=== PATIENT | male | born 1970 | race Caucasian/White ===

== ENCOUNTER → 2024-02-07 | Outpatient (BNVA) | payer BC, MEDICARE, SELFPAY | END | disposition home or self-care (01) | PROVIDERS: PCP Family Medicine; Referring Provider Family Medicine; Visit Provider Urology | DX: I10 Essential (primary) hypertension (principal) ==

== ENCOUNTER 2024-02-24 03:23 | Emergency (ER) | payer BC, MEDICARE, SELFPAY ==
[2024-02-24 03:23] VITALS: BMI 33.0
[2024-02-24 03:43] VITALS: BP 128/81; PULSE 101; RESP 18; TEMP 36.7; O2SAT 98
--- NOTE | 2024-02-24 03:58 | EDNOTE_ITS ---
ED Male Genitalurinary RME/HPI General Chief complaint: Urogenital-Male Stated complaint: BACH CATHETER IS PLUGGED/LEAKING Time Seen by Provider: 02/24/24 03:33 Source: patient and family Arrival date/time: 02/24/24 03:23 53-year-old male presents emergency department requesting Bach catheter to be changed due to being plugged. Patient reports usually receives home health changes catheter but was unable to go tonight. Patient [place] any fever, chills, nausea vomiting, diarrhea, dysuria, flank pain, or any other associated symptom. Mode of arrival: wheelchair Limitations: physical limitation Related Data Home Medications ?Medication ?Instructions ?Recorded ?Confirmed atorvastatin 20 mg tablet 20 mg PO QDAY 12/26/21 08/26/23 duloxetine 30 mg capsule,delayed 60 mg PO QPM 12/26/21 08/26/23 release pregabalin 75 mg capsule 75 mg PO BID 12/26/21 08/26/23 docusate sodium 250 mg capsule 250 mg PO BID 05/17/22 08/26/23 diazepam 5 mg tablet (Valium) 5 mg PO PRN PRN Anxiety 09/24/22 08/26/23 eslicarbazepine 800 mg tablet 800 mg PO HS 07/24/23 08/26/23 (Aptiom) hydrocodone 5 mg-acetaminophen 325 1 tab PO Q6H PRN Pain 07/24/23 08/26/23 mg tablet midodrine 10 mg tablet 10 mg PO BID 07/31/23 08/26/23 ropinirole 1 mg tablet 1 mg PO QPM 07/31/23 08/26/23 ferrous sulfate 325 mg (65 mg 250 mg PO BID 08/26/23 08/26/23 iron) tablet ussoeqle-varzsjjuf-pjjvujia 3.5 1 drp ophthalmic (eye) 4XD 08/26/23 08/26/23 mg/mL-10,000 unit/mL-0.1% eye drops promethazine-DM 6.25 mg-15 mg/5 mL 5 ml PO [id number] PRN Cough 08/26/23 08/26/23 oral syrup Previous Rx's ?Medication ?Instructions ?Recorded famotidine 20 mg tablet 20 mg PO QDAY #30 tabs 09/27/22 tamsulosin 0.4 mg capsule (Flomax) 0.4 mg PO QDAY #30 caps 05/23/23 Allergies Allergy/AdvReac Type Severity Reaction Status Date / Time No Known Allergies Allergy Verified 02/24/24 03:26 Review of Systems Review of Systems Systems Reviewed: All systems reviewed, normal except as documented Constitutional Constitutional: Reports system reviewed and no additional complaints, except as documented, Denies body ache(s), Denies chills and Denies fever(s) Eyes Eyes: Reports system reviewed and no additional complaints, except as documented and Denies change in vision ENT Ears, Nose, Mouth, and Throat: Reports system reviewed and no additional complaints, except as documented and Denies sore throat Cardiovascular Cardiovascular: Reports system reviewed and no additional complaints, except as documented, Denies chest pain and Denies dyspnea Respiratory Respiratory: Reports system reviewed and no additional complaints, except as documented, Denies chest congestion, Denies cough and Denies dyspnea Gastrointestinal Gastrointestinal: Reports system reviewed and no additional complaints, except as documented, Denies abdominal pain, Denies nausea and Denies vomiting Musculoskeletal Musculoskeletal: Reports system reviewed and no additional complaints, except as documented and Denies arthralgias Integumentary/Breasts Skin/Breast: Reports system reviewed and no additional complaints, except as documented, Denies erythema, Denies rash and Denies wounds Neurologic Neurologic: Reports system reviewed and no additional complaints, except as documented Past Medical History Past Medical History NEUROLOGIC: Positive Cerebrovascular Accident, Seizures and Paralysis; Negative Neurological Disorders, Transient Ischemic Attacks (TIA), Dementia, Alzheimer's Disease, Parkinson's Disease, Brain Tumor, Meningitis, Epilepsy, Multiple Sclerosis, Cerebral Palsy, Amyotrophic Lateral Sclerosis (ALS/Bronwyn Gehrig's), Guillain-[place] Syndrome, Spina Bifida, Peripheral Neuropathy, Rocha's Palsy, Subdural Hematoma, Migraine, Head Trauma, Spinal Cord Injury or Traumatic Brain Injury CARDIAC: Positive Hypotension; Negative Cardiac Disorders, Cardiac Arrhythmia, Atrial Fibrillation, Angina, Heart Murmur, Coronary Artery Disease, Atherosclerotic Heart Disease, Peripheral Vascular Disease, Hypercholesterolemia, Aneurysm, Congestive Heart Failure, Congenital Heart Disease, Valvular Heart Disease, Rheumatic Fever, Cardiomyopathy, Edema, Pericarditis, Cellulitis, Deep Vein Thrombosis, Hypertension or Varicose Veins RESPIRATORY: Negative Chronic Obstructive Pulmonary Disease (COPD), Asthma, Bronchitis, Emphysema, Pneumonia, Pulmonary Fibrosis, Tuberculosis, Pulmonary Embolism, Pulmonary Edema or Sleep Apnea GASTROINTESTINAL: Positive Gastrointestinal Disorders and Obesity; Negative Hepatitis, Cirrhosis, Pancreatitis, Celiac Disease, Gall Bladder Disease, Gastrointestinal Bleed, Esophageal Varices, Guadalupe's Esophagus, Colitis, Ulcerative Colitis, Diverticulitis, Diverticulosis, Ulcer, Colorectal Cancer, Irritable Bowel, Crohn's Disease, Obstructive Bowel, Hiatal Hernia, Hemorrhoids or Gastroesophageal Reflux Disease GENITOURINARY: Positive Genitourinary Disorders, Renal Disease and Kidney Stones; Negative Inguinal Hernia, Dialysis, Prostate Cancer or Benign Prostatic Hyperplasia REPRODUCTIVE: Negative Breast Cancer, Fibroids, Genital Herpes, Gonorrhea, Syphilis or Testicular Cancer MUSCULOSKELETAL: Positive Osteomyelitis; Negative Muscular Dystrophy, Myasthenia Gravis, Marfan's Syndrome, Bone Cancer, Arthritis, Rheumatoid Arthritis, Osteoporosis, Degenerative Disk Disease, Gout, Scoliosis, Carpal Tunnel Syndrome, Fibromyalgia, Fractures, Degenerative Joint Disease or Poliovirus ENT: Negative Cataracts, Glaucoma, Blind, Retinal Detachment, Macular Degeneration, Ear Infection, Deafness, Head Trauma or Eye Prosthesis ENDOCRINE: Negative Endocrine Disorders, Diabetes Mellitus Type 1, Diabetes Mellitus Type 2, Hypoglycemia, Emani's Syndrome, Comal's Disease, Hyperthyroidism, Hypothyroidism, Parathyroid Disease, Pituitary Disease, Systemic Lupus Erythematosus, Syndrome of Inappropriate Antidiuretic Hormone (SIADH), Adrenal Disease or Graves' Disease HEMATOLOGIC: Negative Blood Disorders, Anemia, Leukemia, Hemophilia, Thalassemia, Sickle Cell Disease or Clotting Problems PSYCHO/SOCIAL: Positive Depression and Anxiety; Negative Psychiatric Problems, Schizophrenia, Recreational Drug Use, Bipolar Disorder, Behavior Problems, Self-Mutilation, Attention Deficit Disorder, Attention Deficit Hyperactivity Disorder, Depression, Post Traumatic Stress Disorder or Eating Disorder OTHER HISTORY: Positive Hospitalization, Shingles, MRSA and Chicken Pox; Negative Autoimmune Disease, Down Syndrome, Autism, Developmental Delay, Falls, Blood Transfusions, Blood Transfusion Reaction, Anesthesia Reactions, Organ Transplant, Chemotherapy, Radiation Therapy, Hyperbaric Therapy, VRSA, Vancomycin-Resistant Enterococci, Human Immunodeficiency Virus (HIV), Measles, Mumps, Rubella ([place]gu[place] Measles), Pertussis, Clostridium Difficile, Cancer, Breast Cancer, Cervical Cancer, Colorectal Cancer, Lung Cancer, Ovarian Cancer, Prostate Cancer or Testicular Cancer Family History FAMILY HISTORY: Positive Family Surgery; Negative Family Psychiatric Problems, Family Respiratory Disorders, Family Cardiac Disorders, Family Gastrointestinal Problems, Family Cancer or Family Anesthesia Reaction Surgical History SURGICAL: Positive Amputation; Negative Cardiac Surgery, Open Heart Surgery, Coronary Artery Bypass Graft, Valve Replacement, Vascular Surgery, Coronary Stent, Cardiac Catheterization, Pacemaker, Angiogram, Auto Implanted Cardiovert Defib, Carotid Endarterectomy, Endocrine Surgery, Thyroidectomy, Ear Surgery, Tympanostomy Tube, Eye Surgery, Nose Surgery, Oral Surgery, Tonsillectomy, Adenoidectomy, Cochlear Implant, Corneal Transplant, Throat Surgery, Abdominal Surgery, Tracheostomy, Gastric Bypass Surgery, Gastrostomy, Bowel Surgery, Nephrectomy, Transurethral Resection, Joint Replacement, Open Reduction Internal Fixation, Arthroscopy, Neurologic Surgery, Brain Shunt, Mastectomy, Lumpectomy, Hysterectomy, Tubal Ligation, Section, Vasectomy or Organ Transplant Social History SMOKING STATUS: Never smoker SECOND HAND EXPOSURE: No SUBSTANCE USE: does not use ED Exam General Limitations: Present physical limitation General appearance: Present alert and in no apparent distress Head Head exam: Present atraumatic Eye Eye exam: Present normal appearance, PERRL and EOMI ENT ENT exam: Present normal exam, normal oropharynx and mucous membranes moist Neck Neck exam: Present normal inspection, full ROM and trachea midline Chest Chest inspection: Present normal inspection and symmetric chest wall rise Respiratory Respiratory exam: Present normal lung sounds bilaterally Cardiovascular Cardiovascular exam: Present regular rate, normal rhythm and normal heart sounds Abdominal Exam Abdominal exam: Present soft and normal bowel sounds Extremities Exam Extremities exam: Present normal inspection and normal capillary refill Back Exam Back exam: Present normal inspection and full ROM Neurological Exam Neurological exam: Present alert, oriented X3 and CN II-XII intact Psychiatric Psychiatric exam: Present normal affect and normal mood Skin Skin exam: Present warm, dry, intact and normal color Course Quality Measures none Orders Category Date Time Status Bach [Urinary Catheter, Remove] ONCE Care 02/24/24 03:59 Active Bach to [place] Routine Care 02/24/24 03:59 Ordered Lidocaine Jelly 2% Urojet [Xylocaine Jelly 2% Urojet] Med 02/24/24 04:00 Discontinued See Dose Instructions TOP X1 ONE Vital Signs Vital signs: Vital Signs Temperature 98.1 F 02/24/24 03:43 Pulse Rate 101 H 02/24/24 03:43 Respiratory Rate 18 02/24/24 03:43 Blood Pressure 128/81 02/24/24 03:43 Pulse Oximetry (%) 98 02/24/24 03:43 Oxygen Delivery Method Room Air 02/24/24 03:43 98% room air within normal limits Urogenital - Male MDM Narrative MDM Narrative:: 53-year-old male presents emergency department requesting Bach catheter to be changed due to being plugged. Patient reports usually receives home health changes catheter but was unable to go tonight. Patient [place] any fever, chills, nausea vomiting, diarrhea, dysuria, flank pain, or any other associated symptom. Bach catheter replaced successfully and is draining urine. Patient declined any UA and reports was just here for catheter change. Patient discharged to follow-up with primary care provider return to emergency department for any worsening symptoms or as needed. Patient appears nontoxic and is hemodynamically stable. Patient data External records reviewed:: [facility] previous records Clinical information provided by:: patient and family Social determinants that could affect healthcare access:: none Patient has the following chronic illnesses:: See chart How is presenting disease/condition affected by chronic disease/condition?: exacerbated by Evaluation data The following diagnostics were reviewed and interpreted by me:: other (specify) (N/A) Lab and/or radiology exams considered but not ordered:: N/A Interpretation Summary: N/A Medications / Prescriptions Medications or Prescriptions considered but not ordered:: Ordered Medication administrations:: Medication Administration History Discontinued Medications Lidocaine HCl (Lidocaine Jelly 2% (Urojet) 10 Ml Tube) 0 ml TOP X1 ONE Stop: 02/24/24 04:01 Given Consultations Consultation(s) initiated? (list below): No Diagnosis Urogenital Male Differential Diagnosis: urinary tract infection, urethritis, prostatitis and acute retention of urine Most likely diagnosis given after review of the tests above:: Bach catheter changed Admission Indicated Admission indicated?: not indicated Admission Request Was there a request for admission?: No Disposition Plan Disposition Plan: Discharge Discharge Attestation Discharge Attestation: The patient and all family members were given an opportunity to ask questions and understood the discharge instructions. Discharge instructions specifically effects, indications for sooner follow up or return to the emergency department, and the expected course of current diagnosis. Patient condition: Stable Discharge Plan Plan Patient Disposition: HOME (Self Care) Disposition Comment: Stable Prescriptions/Referrals Prescriptions/Med Rec: No Action Aptiom 800 mg tablet 800 mg PO HS Patient Comments: TAKE 1 TABLET BY MOUTH EVERY DAY hydrocodone-acetaminophen 5-325 mg Tablet 1 tab PO Q6H PRN (Reason: Pain) docusate sodium 250 mg Capsule 250 mg PO BID diazepam [Valium] 5 mg Tablet 5 mg PO PRN PRN (Reason: Anxiety) famotidine 20 mg Tablet 20 mg PO QDAY Qty: 30 0RF tamsulosin [Flomax] 0.4 mg capsule 0.4 mg PO QDAY Qty: 30 0RF neomycin-polymyxin B-dexameth 3.5mg/mL-10,000 unit/mL-0.1 % drops,suspension 1 drp OPHTHALMIC (EYE) 4XD Patient Comments: INSTILL 1 DROP INTO LEFT EYE FOUR TIMES A DAY FOR 7 DAYS ferrous sulfate 325 mg (65 mg iron) tablet 250 mg PO BID Patient Comments: TAKE 1 TABLET BY MOUTH TWICE A DAY promethazine-DM 6.25-15 mg/5 mL syrup 5 ml PO [id number] PRN (Reason: Cough) Patient Comments: TAKE 5 MLS BY MOUTH EVERY 6 HOURS NEEDED FOR COUGH atorvastatin 20 mg tablet 20 mg PO QDAY Patient Comments: TAKE 1 TABLET BY MOUTH EVERY DAY duloxetine 30 mg capsule,delayed release(DR/EC) 60 mg PO QPM Patient Comments: TAKE 1 CAPSULE BY MOUTH EVERY DAY pregabalin 75 mg capsule 75 mg PO BID Patient Comments: TAKE 1 CAPSULE BY MOUTH TWICE A DAY ropinirole 1 mg tablet 1 mg PO QPM Patient Comments: TAKE 1 TABLET BY MOUTH AT BEDTIME midodrine 10 mg tablet 10 mg PO BID Patient Comments: TAKE 1 TABLET (10 MG) BY MOUTH TWICE A DAY HOLD IF BP SYSTOLIC OVER 120 Problem List Clinical Impression: Urinary catheter (Bach) change required Patient/Caregiver Discharge Instructions Additional Instructions: Follow-up with your primary care provider upon discharge. Return to emergency department for any worsening symptoms or as needed. Print Language: Moldovan Stand Alone Forms: Janice Award Info., Patient Portal Info Letter PA/SOFTWARE TEST MANAGER Supervising Physician PA/SOFTWARE TEST MANAGER Supervising Physician: Dr. Davis
== END 2024-02-24 04:46 | disposition home or self-care (01) ==
LOC: SERX 04:49
PROVIDERS: Emergency Provider Emergency Medicine; PCP Nurse Practitioner Family
DX: Z46.6 Encounter for fitting and adjustment of urinary device (principal)
CPT/HCPCS: 51702; 99283

== ENCOUNTER 2024-05-09 14:02 | Emergency (ER) | payer BC, MEDICARE, SELFPAY ==
[2024-05-09 14:04] VITALS: BMI 33.0
[2024-05-09 14:13] VITALS: BP 144/89; PULSE 112; RESP 18; TEMP 36.6; O2SAT 99
[2024-05-09] MEDS: ALPRazoLAM 0.25 MG TABLET 0.5 MG PO (14:29)
[2024-05-09] MEDS: KETOROLAC INJ 60 MG/2 ML VIAL IM (14:30)
--- NOTE | 2024-05-09 14:36 | EDNOTE_ITS ---
<Statement entered by Yumiko Gonzalez MD - 05/11/24 12:05> As co-signing physician, I was present and available for consult prn. I concur with the plan and care as documented by the midlevel provider. ED Male Genitalurinary RME/HPI General Chief complaint: Abdominal Pain Stated complaint: Possible kidney stones: abd. pain, decrease urine Time Seen by Provider: 05/09/24 14:23 Arrival date/time: 05/09/24 14:02 53-year-old male well-known to me wheelchair dependent with history of kidney stones presents to the emergency department today with who is requesting pain medication. Patient already has a follow-up scheduled for the and with specialist at [facility] per the patient is urinating without difficulty patient has a catheter in place Limitations: no limitations Related Data Home Medications ?Medication ?Instructions ?Recorded ?Confirmed atorvastatin 20 mg tablet 20 mg PO QDAY 12/26/2108/25 duloxetine 30 mg capsule,delayed 60 mg PO QPM 12/26/21 08/26/23 release pregabalin 75 mg capsule 75 mg PO BID 12/26/21 docusate sodium 250 mg capsule 250 mg PO BID 05/17/22 08/26/23 diazepam 5 mg tablet (Valium) 5 mg PO PRN PRN Anxiety 09/24/22 08/26/23 eslicarbazepine 800 mg tablet 800 mg PO HS 07/24/23 (Aptiom) hydrocodone 5 mg-acetaminophen 325 1 tab PO Q6H PRN Pa in 07/24/23 08/26/23 mg tablet midodrine 10 mg tablet 10 mg PO BID 07/31/23 ropinirole 1 mg tablet 1 mg PO QPM 07/31/23 4 ferrous sulfate 325 mg (65 mg 250 mg PO BID 08/26/23 0 08/26/23 iron) tablet [id number] 3.5 1 drp ophthalmic (eye) 4XD 08/26/23 08/26/23 mg/mL-10,000 unit/mL-0.1% eye drops promethazine-DM 6.25 mg-15 mg/5 mL 5 ml PO [id number] PRN Cough 08/26/23 08/26/23 oral syrup Previous Rx's ?Medication ?Instructions ?Recorded famotidine 20 mg tablet 20 mg PO QDAY #30 tabs 09/27 tamsulosin 0.4 mg capsule (Flomax) 0.4 mg PO QDAY #30 caps 05/23/23 Allergies Allergy/AdvReac Type Severity Reaction Status Date / Time No Known Allergies Allergy Verified 02/24/24 03:26 Review of Systems Review of Systems Systems Reviewed: All systems reviewed, normal except as documented Constitutional Constitutional: Reports system reviewed and no additional complaints, except as documented, Denies fever(s) and Denies headache(s) Eyes Eyes: Reports system reviewed and no additional complaints, except as documented and Denies blurry vision ENT Ears, Nose, Mouth, and Throat: Reports system reviewed and no additional complaints, except as documented, Denies headache(s), Denies nasal congestion and Denies nasal discharge Cardiovascular Cardiovascular: Reports system reviewed and no additional complaints, except as documented, Denies chest pain and Denies dyspnea Respiratory Respiratory: Reports system reviewed and no additional complaints, except as documented, Denies chest congestion, Denies cough and Denies dyspnea Gastrointestinal Gastrointestinal: Reports system reviewed and no additional complaints, except as documented, Reports abdominal pain and Denies loose stools Integumentary/Breasts Skin/Breast: Reports system reviewed and no additional complaints, except as documented and Denies rash Neurologic Neurologic: Reports system reviewed and no additional complaints, except as documented, Reports as per HPI and Denies headache(s) Past Medical History Past Medical History NEUROLOGIC: Positive Cerebrovascular Accident, Seizures and Paralysis; Negative Neurological Disorders, Transient Ischemic Attacks (TIA), Dementia, Alzheimer's Disease, Parkinson's Disease, Brain Tumor, Meningitis, Epilepsy, Multiple Sclerosis, Cerebral Palsy, Amyotrophic Lateral Sclerosis (ALS/[place] Gehrig's), Guillain-[place] Syndrome, Spina Bifida, Peripheral Neuropathy, Rocha's Palsy, Subdural Hematoma, Migraine, Head Trauma, Spinal Cord Injury or Traumatic Brain Injury CARDIAC: Positive Hypotension; Negative Cardiac Disorders, Cardiac Arrhythmia, Atrial Fibrillation, Angina, Heart Murmur, Coronary Artery Disease, Atherosclerotic Heart Disease, Peripheral Vascular Disease, Hypercholesterolemia, Aneurysm, Congestive Heart Failure, Congenital Heart Disease, Valvular Heart Disease, Rheumatic Fever, Cardiomyopathy, Edema, Pericarditis, Cellulitis, Deep Vein Thrombosis, Hypertension or Varicose Veins RESPIRATORY: Negative Chronic Obstructive Pulmonary Disease (COPD), Asthma, Bronchitis, Emphysema, Pneumonia, Pulmonary Fibrosis, Tuberculosis, Pulmonary Embolism, Pulmonary Edema or Sleep Apnea GASTROINTESTINAL: Positive Gastrointestinal Disorders and Obesity; Negative Hepatitis, Cirrhosis, Pancreatitis, Celiac Disease, Gall Bladder Disease, Gastrointestinal Bleed, Esophageal Varices, Guadalupe's Esophagus, Colitis, Ulcerative Colitis, Diverticulitis, Diverticulosis, Ulcer, Colorectal Cancer, Irritable Bowel, Crohn's Disease, Obstructive Bowel, Hiatal Hernia, Hemorrhoids or Gastroesophageal Reflux Disease GENITOURINARY: Positive Genitourinary Disorders, Renal Disease and Kidney Stones; Negative Inguinal Hernia, Dialysis, Prostate Cancer or Benign Prostatic Hyperplasia REPRODUCTIVE: Negative Breast Cancer, Fibroids, Genital Herpes, Gonorrhea, Syphilis or Testicular Cancer MUSCULOSKELETAL: Positive Osteomyelitis; Negative Muscular Dystrophy, Myasthenia Gravis, Marfan's Syndrome, Bone Cancer, Arthritis, Rheumatoid Arthritis, Osteoporosis, Degenerative Disk Disease, Gout, Scoliosis, Carpal Tunnel Syndrome, Fibromyalgia, Fractures, Degenerative Joint Disease or Poliovirus ENT: Negative Cataracts, Glaucoma, Blind, Retinal Detachment, Macular Degeneration, Ear Infection, Deafness, Head Trauma or Eye Prosthesis ENDOCRINE: Negative Endocrine Disorders, Diabetes Mellitus Type 1, Diabetes Mellitus Type 2, Hypoglycemia, [place]'s Syndrome, Fabian's Disease, Hyperthyr oidism, Hypothyroidism, Parathyroid Disease, Pituitary Disease, Systemic Lupus Erythematosus, Syndrome of Inappropriate Antidiuretic Hormone (SIADH), Adrenal Disease or Graves' Disease HEMATOLOGIC: Negative Blood Disorders, Anemia, Leukemia, Hemophilia, Thalassemia, Sickle Cell Disease or Clotting Problems PSYCHO/SOCIAL: Positive Depression and Anxiety; Negative Psychiatric Problems, Schizophrenia, Recreational Drug Use, Bipolar Disorder, Behavior Problems, Self-Mutilation, Attention Deficit Disorder, Attention Deficit Hyperactivity Disorder, Depression, Post Traumatic Stress Disorder or Eating Disorder OTHER HISTORY: Positive Hospitalization, Shingles, MRSA and Chicken Pox; Negative Autoimmune Disease, Down Syndrome, Autism, Developmental Delay, Falls, Blood Transfusions, Blood Transfusion Reaction, Anesthesia Reactions, Organ Transplant, Chemotherapy, Radiation Therapy, Hyperbaric Therapy, VRSA, Vancomycin-Resistant Enterococci, Human Immunodeficiency Virus (HIV), Measles, Mumps, Rubella ([place] Measles), Pertussis, Clostridium Difficile, Cancer, Breast Cancer, Cervical Cancer, Colorectal Cancer, Lung Cancer, Ovarian Cancer, Prostate Cancer or Testicular Cancer Family History FAMILY HISTORY: Positive Family Surgery; Negative Family Psychiatric Problems, Family Respiratory Disorders, Family Cardiac Disorders, Family Gastrointestinal Problems, Family Cancer or Family Anesthesia Reaction Surgical History SURGICAL: Positive Amputation; Negative Cardiac Surgery, Open Heart Surgery, Coronary Artery Bypass Graft, V alve Replacement, Vascular Surgery, Coronary Stent, Cardiac Catheterization, Pacemaker, Angiogram, Auto Implanted Cardiovert Defib, Carotid Endarterectomy, Endocrine Surgery, Thyroidectomy, Ear Surgery, Tympanostomy Tube, Eye Surgery, Nose Surgery, Oral Surgery, Tonsillectomy, Adenoidectomy, Cochlear Implant, Corneal Transplant, Throat Surgery, Abdominal Surgery, Tracheostomy, Gastric Bypass Surgery, Gastrostomy, Bowel Surgery, Nephrectomy, Transurethral Resection, Joint Replacement, Open Reduction Internal Fixation, Arthroscopy, Neurologic Surgery, Brain Shunt, Mastectomy, Lumpectomy, Hysterectomy, Tubal Ligation, Section, Vasectomy or Organ Transplant Social History SMOKING STATUS: Never smoker SECOND HAND EXPOSURE: No SUBSTANCE USE: does not use ED Exam General Limitations: Present no limitations General appearance: Present alert and in no apparent distress Head Head exam: Present atraumatic, normocephalic and normal inspection Eye Eye exam: Present normal appearance, PERRL and EOMI; Absent conjunctival injection ENT ENT exam: Present normal exam, normal oropharynx and mucous membranes moist Neck Neck exam: Present normal inspection, full ROM and trachea midline Chest Chest inspection: Present normal inspection and symmetric chest wall rise Respiratory Respiratory exam: Present normal lung sounds bilaterally; Absent respiratory distress, wheezes, stridor or accessory muscle use Cardiovascular Cardiovascular exam: Present regular rate, normal rhythm and normal heart sounds Abdominal Exam Abdominal exam: Present soft and normal bowel sounds; Absent distention, tenderness, guarding, rebound, rigidity, Baig's sign, Rovsing's sign or tenderness at McBurney's Point Abdominal tenderness: Absent RUQ or RLQ Extremities Exam Extremities exam: Present normal inspection and full ROM Back Exam Back exam: Present normal inspection and full ROM Neurological Exam Neurological exam: Present alert, oriented X3 and CN II-XII intact Psychiatric Psychiatric exam: Present normal affect and normal mood Skin Skin exam: Present warm, dry, intact and normal color Course Quality Measures none Orders Category Date Time Status ALPRazoLAM [Xanax] Med 05/09/24 14:23 Discontinued 0.5 mg PO X1 ONE Ketorolac Inj [Toradol Inj] Med 05/09/24 14:23 Discontinued 60 mg IM X1 ONE Vital Signs Vital signs: Vital Signs Temperature 97.8 F 05/09/24 14:13 Pulse Rate 112 H 05/09/24 14:13 Respiratory Rate 18 05/09/24 14:13 Blood Pressure 144/89 H 05/09/24 14:13 Pulse Oximetry (%) 99 05/09/24 14:13 Oxygen Delivery Method Room Air 05/09/24 14:13 O2 saturation 99% r/a wnl Urogenital - Male MDM Narrative MDM Narrative:: 53-year-old male well-known to me wheelchair dependent with history of kidney stones presents to the emergency department today with who is requesting pain medication. Patient already has a follow-up scheduled for the and with specialist at [facility] per the patient is urinating without difficulty patient has a catheter in place I did offer to do lab work and CT for the she would rather follow-up at [facility] and does not believe it is necessary at this time Patient has no nausea no vomiting no fever Patient given medication here for pain as well as anxiety Patient discharged home in no distress to follow-up specialist for worsening symptoms return immediately Patient data External records reviewed:: [facility] previous records Clinical information provided by:: spouse Social determinants that could affect healthcare access:: none Patient has the following chronic illnesses:: See history How is presenting disease/condition affected by chronic disease/condition?: caused by Evaluation data The following diagnostics were reviewed and interpreted by me:: other (specify) (N/A) Lab and/or radiology exams considered but not ordered:: Consider not ordered Interpretation Summary: N/A Medications / Prescriptions Medications or Prescriptions considered but not ordered:: Given Medication administrations:: Medication Administration History Discontinued Medications Alprazolam (Alprazolam 0.25 Mg Tablet) 0.5 mg PO X1 ONE Stop: 05/09/24 14:24 Last Admin: 05/09/24 14:29 Dose: 0.5 mg Documented By: Ketorolac Tromethamine (Ketorolac Inj 60 Mg/2 Ml Vial) 60 mg IM X1 ONE Stop: 05/09/24 14:24 Last Admin: 05/09/24 14:30 Dose: 60 mg Documented By: Given Consultations Consultation(s) initiated? (list below): No Diagnosis Urogenital Male Differential Diagnosis: urinary tract infection and prostatitis Most likely diagnosis given after review of the tests above:: UTI Admission Indicated Admission indicated?: not indicated Admission Request Was there a request for admission?: No Disposition Plan Disposition Plan: Discharge Discharge Attestation Discharge Attestation: The patient and all family members were given an opportunity to ask questions and understood the discharge instructions. Discharge instructions specifically effects, indications for sooner follow up or return to the emergency department, and the expected course of current diagnosis. Patient condition: Stable Discharge Plan Plan Patient Disposition: HOME (Self Care) Disposition Comment: Stable Prescriptions/Referrals Prescriptions/Med Rec: No Action Aptiom 800 mg tablet 800 mg PO HS Patient Comments: TAKE 1 TABLET BY MOUTH EVERY DAY hydrocodone-acetaminophen 5-325 mg Tablet 1 tab PO Q6H PRN (Reason: Pain) docusate sodium 250 mg Capsule 250 mg PO BID diazepam [Valium] 5 mg Tablet 5 mg PO PRN PRN (Reason: Anxiety) famotidine 20 mg Tablet 20 mg PO QDAY Qty: 30 0RF tamsulosin [Flomax] 0.4 mg capsule 0.4 mg PO QDAY Qty: 30 0RF neomycin-polymyxin B-dexameth 3.5mg/mL-10,000 unit/mL-0.1 % drops,suspension 1 drp OPHTHALMIC (EYE) 4XD Patient Comments: INSTILL 1 DROP INTO LEFT EYE FOUR TIMES A DAY FOR 7 DAYS ferrous sulfate 325 mg (65 mg iron) tablet 250 mg PO BID Patient Comments: TAKE 1 TABLET BY MOUTH TWICE A DAY promethazine-DM 6.25-15 mg/5 mL syrup 5 ml PO [id number] PRN (Reason: Cough) Patient Comments: TAKE 5 MLS BY MOUTH EVERY 6 HOURS NEEDED FOR COUGH atorvastatin 20 mg tablet 20 mg PO QDAY Patient Comments: TAKE 1 TABLET BY MOUTH EVERY DAY duloxetine 30 mg capsule,delayed release(DR/EC) 60 mg PO QPM Patient Comments: TAKE 1 CAPSULE BY MOUTH EVERY DAY pregabalin 75 mg capsule 75 mg PO BID Patient Comments: TAKE 1 CAPSULE BY MOUTH TWICE A DAY ropinirole 1 mg tablet 1 mg PO QPM Patient Comments: TAKE 1 TABLET BY MOUTH AT BEDTIME midodrine 10 mg tablet 10 mg PO BID Patient Comments: TAKE 1 TABLET (10 MG) BY MOUTH TWICE A DAY HOLD IF BP SYSTOLIC OVER 120 Problem List Clinical Impression: Kidney stone Patient/Caregiver Discharge Instructions Education Materials: Kidney Problems Additional Instructions: Please follow-up with specialist as discussed for worsening symptoms return immediately Print Language: Kyrgyz Stand Alone Forms: Friend Traveler Info., Patient Portal Info Letter PA/SOCIAL STUDIES TEACHER Supervising Physician PA/SOCIAL STUDIES TEACHER Supervising Physician: Dr. GONZALEZ
== END 2024-05-09 14:40 | disposition home or self-care (01) ==
LOC: SERX 14:40
PROVIDERS: Emergency Provider Emergency Medicine; PCP Family Medicine
DX: N20.0 Calculus of kidney (principal); F41.9 Anxiety disorder, unspecified; Z87.442 Personal history of urinary calculi; Z99.3 Dependence on wheelchair
CPT/HCPCS: 96372; 99283; J1885; A9270

== ENCOUNTER 2024-05-09 21:24 | Emergency (ER) | payer BC, MEDICARE, SELFPAY ==
[2024-05-09 22:08] VITALS: BP 131/77; PULSE 87; RESP 18; TEMP 36.6; O2SAT 100; BMI 33.0
--- NOTE | 2024-05-09 22:27 | PD.EDRME ---
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
--- NOTE | 2024-05-09 23:17 | PD.EDADULT ---
ED General RME/HPI General Chief complaint: General Adult/Misc Complain Stated complaint: KIDNEY PAIN Time Seen by Provider: 05/09/24 21:41 Arrival date/time: 05/09/24 21:24 RME / HPI RME / HPI narrative: Patient is a 53 years old male with past medical history of CVA with right residual paralysis, right facial droop and dyslexia, multiple renal stones, chronic Pseudomonas UTI and chronic indwelling catheter presented to the ED due to abdominal pain. He was seen in the ED today afternoon for similar complaints and work up was negative. He denies chest pain, SOB, diarrhea, nausea, vomiting, fever or chills. Patient cannot provide history, family at the bedside. They report he started developing right flank pain today morning and was worsening over time. Related Data Home Medications ?Medication ?Instructions ?Recorded ?Confirmed atorvastatin 20 mg tablet 20 mg PO QDAY 12/26/21 08/26/23 duloxetine 30 mg capsule,delayed 60 mg PO QPM 12/26/21 08/26/23 release pregabalin 75 mg capsule 75 mg PO BID 12/26/21 08/26/23 docusate sodium 250 mg capsule 250 mg PO BID 05/17/22 08/26/23 diazepam 5 mg tablet (Valium) 5 mg PO PRN PRN Anxiety 09/24/22 08/26/23 eslicarbazepine 800 mg tablet 800 mg PO HS 07/24/23 08/26/23 (Aptiom) hydrocodone 5 mg-acetaminophen 325 1 tab PO Q6H PRN Pain 07/24/23 08/26/23 mg tablet midodrine 10 mg tablet 10 mg PO BID 07/31/23 08/26/23 ropinirole 1 mg tablet 1 mg PO QPM 07/31/23 08/26/23 ferrous sulfate 325 mg (65 mg 250 mg PO BID 08/26/23 08/26/23 iron) tablet myulujzo-ayrhohrcs-jcsbrteu 3.5 1 drp ophthalmic (eye) 4XD 08/26/23 08/26/23 mg/mL-10,000 unit/mL-0.1% eye drops promethazine-DM 6.25 mg-15 mg/5 mL 5 ml PO [id number] PRN Cough 08/26/23 08/26/23 oral syrup Previous Rx's ?Medication ?Instructions ?Recorded famotidine 20 mg tablet 20 mg PO QDAY #30 tabs 09/27/22 tamsulosin 0.4 mg capsule (Flomax) 0.4 mg PO QDAY #30 caps 05/23/23 cefdinir 300 mg capsule 300 mg PO BID #14 caps 05/10/24 hydrocodone 5 mg-acetaminophen 325 2 tab PO Q8H PRN pain #20 tabs 05/10/24 mg tablet ketorolac 10 mg tablet 10 mg PO Q8H PRN pain 5 days #10 05/10/24 tabs ondansetron 4 mg disintegrating 4 mg PO TID PRN nausea and 05/10/24 tablet vomiting 30 days #10 tabs tamsulosin 0.4 mg capsule (Flomax) 0.4 mg PO QDAY 7 days #7 caps 05/10/24 Allergies Allergy/AdvReac Type Severity Reaction Status Date / Time No Known Allergies Allergy Verified 02/24/24 03:26 Review of Systems Review of Systems Systems Reviewed: All systems reviewed, normal except as documented ED Exam Narrative Physical exam: Gen: Well-developed and well-nourished male. HEENT: NCAT, PERRLA, EOMI, MMM, anicteric conjunctivae, right facial droop noted. CVS: normal S1 and S2. RRR. No M/R/G. Resp: CTA B/L. No rhonchi, rales, crackles or wheezing. Abd: soft, non-tender, non-distended. BS+ in all 4 quadrants. : no CVA or suprapubic tenderness. MSK: Good ROM in BUE & BLE. No edema or rash. Neuro: CN II-XII grossly intact. Strength 5/5 in LUE & LLE. Right sided paralysis. Alert and oriented x3. Course Quality Measures none Orders Category Date Time Status CT Screening NOW Care 05/09/24 22:23 Active [place] Routine Care 05/09/24 23:29 Ordered Miscellaneous Nursing Order NOW Care 05/09/24 23:36 Active Miscellaneous Nursing Order NOW Care 05/09/24 23:37 Active Miscellaneous Nursing Order NOW Care 05/10/24 01:48 Active Saline [Insert IV] NOW Care 05/09/24 23:[address] abdomen pelvis wo con Stat Exams 05/09/24 23:29 Taken Amylase Stat Lab 05/09/24 23:33 Completed CBC Stat Lab 05/09/24 23:33 Completed CMP [Comprehensive Metabolic Panel] Stat Lab 05/09/24 23:33 Completed Lipase Stat Lab 05/09/24 23:33 Completed Magnesium Stat Lab 05/09/24 23:33 Completed Triglycerides Stat Lab 05/10/24 00:00 Completed UA, C/S IF [Urinalysis, C/S if Indicated] Stat Lab 05/10/24 01:50 Completed Urine Culture Stat Lab 05/10/24 01:50 Received 1 gm/NS50M IV x1 (ED) Med 05/10/24 03:48 Ordered cefTRIAXone [Rocephin] 1,000 mg SODIUM CHLORIDE 0.9% (Popper) [Ns 0.9% (P)] 50 ml IV X1 HYDROmorphone INJ [Dilaudid Inj] Med 05/09/24 22:23 Discontinued 1 mg IVP X1 ONE Ketorolac Inj [Toradol Inj] Med 05/09/24 23:29 Discontinued 30 mg IVP X1 ONE Promethazine Inj [Phenergan Inj] 12.5 mg Med 05/09/24 22:26 Discontinued Sodium Chloride 0.9% [Ns] 50 ml IV X1 Sodium Chloride 0.9% 1000 ml [Ns] 1,000 ml Med 05/09/24 23:29 Discontinued IV 999 mls/hr Vital Signs Vital signs: Vital Signs Temperature 98 F 05/09/24 22:08 Pulse Rate 87 05/09/24 22:08 Respiratory Rate 18 05/09/24 22:08 Blood Pressure 131/77 H 05/09/24 22:08 Pulse Oximetry (%) 100 05/09/24 22:08 Oxygen Delivery Method Room Air 05/09/24 22:08 [facility] Patient data External records reviewed:: [facility] previous records Clinical information provided by:: patient and family Social determinants that could affect healthcare access:: none Patient has the following chronic illnesses:: CVA with right residual paralysis, right facial droop and dyslexia, multiple renal stones, chronic Pseudomonas UTI and chronic indwelling catheter How is presenting disease/condition affected by chronic disease/condition?: caused by Evaluation data The following diagnostics were reviewed and interpreted by me:: lab results and radiology exam(s) Lab and/or radiology exams considered but not ordered:: none Interpretation Summary: 6 mm obstructing calculus in the right mid ureter, with moderate right hydroureteronephrosis, UTI Medications Medications considered but not ordered:: none Medication administrations:: Medication Administration History Discontinued Medications Hydromorphone HCl (Hydromorphone Inj 2 Mg/Ml Vial) 1 mg IVP X1 ONE Stop: 05/09/24 22:24 Last Admin: 05/09/24 23:45 Dose: 1 mg Documented By: CATRINA Promethazine HCl 12.5 mg/ (Sodium Chloride) 50.5 mls @ 2.5 mls/min IV X1 ONE Stop: 05/09/24 22:46 Last Admin: 05/09/24 23:56 Dose: Not Given Documented By: CATRINA Non-Admin Reason: Cancelled by Provider Sodium Chloride (Ns) 1,000 mls @ 999 mls/hr IV .Q1H1M ONE Stop: 05/10/24 00:29 Last Admin: 05/10/24 00:18 Dose: 999 mls/hr Documented By: CATRINA Ketorolac Tromethamine (Ketorolac Inj 30 Mg/Ml Vial) 30 mg IVP X1 ONE Stop: 05/09/24 23:30 Last Admin: 05/10/24 00:00 Dose: 30 mg Documented By: CATRINA Ketorolac 30 mg, NS 1L, promethazine 12.5 mg, hydromorphone 1 mg, ceftriaxone 1 g. Consultations Consultation(s) initiated? (list below): No Diagnosis Differential Diagnosis ED Complaint MDM: pancreatitis, pyelonephritis, kidney stone, nephrolithiasis Most likely diagnosis given after review of the tests above:: Nephrolithiasis Admission Indicated Admission indicated?: not indicated Explain why admission is indicated or not indicated:: Patient has small stone 6 mm with obstruction and moderate hydronephrosis, will need to follow up outpatient. Admission Request Was there a request for admission?: No Disposition Plan Disposition Plan: Discharge Discharge Attestation Discharge Attestation: The patient and all family members were given an opportunity to ask questions and understood the discharge instructions. Discharge instructions specifically effects, indications for sooner follow up or return to the emergency department, and the expected course of current diagnosis. Patient condition: Stable Medical Decision Making Differential Diagnosis Differential Diagnosis: pancreatitis, pyelonephritis, kidney stone, nephrolithiasis Lab Data 05/09/24 23:33 05/09/24 23:33 Labs: Lab Results 05/09/24 05/10/24 05/10/24 Range/Units 23:33 00:00 01:50 WBC 4.8 (3.8-10.6) Thou/mm3 RBC 4.58 (4.50-5.90) Miln/mm3 Hgb 11.1 L (13.5-16.0) g/dL Hct 35.2 L (41.0-53.0) % MCV 77 L (80-100) fL MCH 24.2 L (25.0-35.0) pg MCHC 31.5 (31.0-37.0) g/dl RDW Std Deviation 42.0 (35.1-43.9) fL Plt Count 125 L (140-440) Thou/mm3 Neut % (Auto) 42 (37-80) % Lymph % (Auto) 40 (10-50) % [place] % (Auto) 12 (0-12) % Eos % (Auto) 5 (0-10) % Baso % (Auto) 1 (0-2.5) % Neut # (Auto) 2.0 (1.8-7.7) Thou/mm3 Lymph # (Auto) 1.9 (1.0-4.8) Thou/mm3 [place] # (Auto) 0.6 (0.0-0.8) Thou/mm3 Eos # (Auto) 0.2 (0.0-0.5) Thou/mm3 Baso # (Auto) 0.1 (0.0-0.2) Thou/mm3 Immature Gran # (Auto) 0.02 H (0.00-0.00) Thou/mm3 Absolute Nucleated RBC 0.00 (0.00-0.00) Thou/mm3 Immature Gran % 0 (0-0) % Nucleated RBC % 0 (0) /100 WBC Sodium 144 (136-145) mMol/L Potassium 3.8 (3.4-5.1) mMol/L Chloride 109 H (98-107) mMol/L Carbon Dioxide 29.3 (20.0-31.0) mMol/L Anion Gap 6 L (7-16) BUN 24 H (9-23) mg/dL Creatinine 0.9 (0.6-1.3) mg/dL Estim Creat Clear Calc 116.2 (>60) mL/min eGFR > 60 (60 - ) See Note BUN/Creatinine Ratio 27 H (12-20) Ratio Glucose 140 H (74-106) mg/dL Calculated Osmolality 292 (275-295) Calcium 9.1 (8.3-10.6) mg/dL Corrected Calcium 9.2 (8.5-10.1) mg/dL Magnesium 1.8 (1.6-2.6) mg/dL Total Bilirubin 0.4 (0.3-1.2) mg/dL AST 24 (0-34) U/L ALT 33 (10-49) U/L Alkaline Phosphatase 103 (46-116) U/L Total Protein 6.5 (5.7-8.2) gm/dL Albumin 3.9 (3.5-5.0) gm/dL Globulin 2.6 (2.3-3.5) gm/dL Albumin/Globulin Ratio 1.5 (1.2-2.2) Triglycerides Cancelled 154 H Amylase 126 H (30-118) U/L Lipase 80 H (12-53) U/L Ur Collection Type Clean Catch Urine Color Yellow (Lt Yel-Yel) Urine Clarity Turbid A (Clear/Hazy) Urine pH 6.0 (5.0-7.0) Ur Specific [place] 1.030 (1.001-1.035) Urine Protein 2+ A (Neg - Trace) Urine Glucose (UA) Negative (Negative) Urine Ketones Negative (Negative) Urine Blood 2+ A (Negative) Urine Nitrite Positive (Negative) Urine Bilirubin Negative (Negative) Urine Urobilinogen (Auto) 2.0 (0.0-1.0) mg/dL Ur Leukocyte Esterase Positive (Negative) Urine RBC 221 H (0-3) /hpf Urine WBC 526 H (0-5) /hpf Ur Squamous Epith Cells 1 (0-5) /hpf Ur Renal Epithelial Cell 2 (0-5) /hpf Amorphous Crystals Present A (Absent) Urine Bacteria 1+ A (None) Urine Yeast (Budding) Present A (None) Ur Culture Indicated? Yes Discharge Plan Plan Patient Disposition: HOME (Self Care) Prescriptions/Referrals Prescriptions/Med Rec: New hydrocodone-acetaminophen 5-325 mg tablet 2 tab PO Q8H MDD 6 PRN (Reason: pain) Qty: 20 0RF tamsulosin [Flomax] 0.4 mg capsule 0.4 mg PO QDAY 7 Days Qty: 7 0RF ketorolac 10 mg tablet 10 mg PO Q8H PRN (Reason: pain) 5 Days Qty: 10 0RF cefdinir 300 mg capsule 300 mg PO BID Qty: 14 0RF ondansetron 4 mg tablet,disintegrating 4 mg PO TID PRN (Reason: nausea and vomiting) 30 Days Qty: 10 0RF No Action Aptiom 800 mg tablet 800 mg PO HS Patient Comments: TAKE 1 TABLET BY MOUTH EVERY DAY hydrocodone-acetaminophen 5-325 mg Tablet 1 tab PO Q6H PRN (Reason: Pain) docusate sodium 250 mg Capsule 250 mg PO BID diazepam [Valium] 5 mg Tablet 5 mg PO PRN PRN (Reason: Anxiety) famotidine 20 mg Tablet 20 mg PO QDAY Qty: 30 0RF tamsulosin [Flomax] 0.4 mg capsule 0.4 mg PO QDAY Qty: 30 0RF neomycin-polymyxin B-dexameth 3.5mg/mL-10,000 unit/mL-0.1 % drops,suspension 1 drp OPHTHALMIC (EYE) 4XD Patient Comments: INSTILL 1 DROP INTO LEFT EYE FOUR TIMES A DAY FOR 7 DAYS ferrous sulfate 325 mg (65 mg iron) tablet 250 mg PO BID Patient Comments: TAKE 1 TABLET BY MOUTH TWICE A DAY promethazine-DM 6.25-15 mg/5 mL syrup 5 ml PO [id number] PRN (Reason: Cough) Patient Comments: TAKE 5 MLS BY MOUTH EVERY 6 HOURS NEEDED FOR COUGH atorvastatin 20 mg tablet 20 mg PO QDAY Patient Comments: TAKE 1 TABLET BY MOUTH EVERY DAY duloxetine 30 mg capsule,delayed release(DR/EC) 60 mg PO QPM Patient Comments: TAKE 1 CAPSULE BY MOUTH EVERY DAY pregabalin 75 mg capsule 75 mg PO BID Patient Comments: TAKE 1 CAPSULE BY MOUTH TWICE A DAY ropinirole 1 mg tablet 1 mg PO QPM Patient Comments: TAKE 1 TABLET BY MOUTH AT BEDTIME midodrine 10 mg tablet 10 mg PO BID Patient Comments: TAKE 1 TABLET (10 MG) BY MOUTH TWICE A DAY HOLD IF BP SYSTOLIC OVER 120 Referrals: No Primary/Family,Physician [Referring Provider] - In 1 week Problem List Clinical Impression: Hydronephrosis with renal and ureteral calculous obstruction, Acute UTI Patient/Caregiver Discharge Instructions Education Materials: ED Kidney Stone Undescended No ..., ED Kidney Stone w/ Colic Additional Instructions: Discharge Instructions from Dr. Davis: --After evaluation, your symptoms are due to a 6 mm kidney stone.? It's in the middle of the right ureter tube so you have a chance to pass it. --Increase oral fluid to flush your kidneys.? Maintain clear urine. if it's dark or yellow then increase oral fluid.? If you don't do this, you won't pass it.? --Take Flomax to help decrease spasms to increase the chance of passing it.? --Take Zofran as needed for nausea or vomiting. --Take Ketorolac/Toradol for pain control.? And [place].? If you are in severe pain, you won't pass it.?? --Strain your urine so you can catch the stone when you pass it.? --Cefdinir for UTI. --See a private doctor on 05/11/2024 for recheck and further care. Take the stone with you for analysis because certain stones can be prevented.? If you didn't pass the stone, ask for help with urology referral. --Seek immediate medical care with fever over 100.4, persistent vomiting despite Zofran, intolerable pain, or with any concerns.?? Print Language: Angolan Stand Alone Forms: Janice Award Info., Patient Portal Info Letter
--- NOTE | 2024-05-09 23:29 | XR_ITS ---
Examination: CT abdomen and pelvis without contrast. Coronal 3-D reconstructions. Sagittal 2-D reconstructions. Date and time of exam:May 09, 2024 1158 hrs. Comparison September 25, 2023 Indications: Onset abdominal pain today CTDI: vol (mGy): 20.1 DLP: (mGycm): 1354 Technique: Axial images of the abdomen have been obtained, 3 mm slice thickness Intravenous contrast material has not been administered. Low dose protocols were performed. One or more of the following dose reduction techniques were used; automated exposure control, adjustment of the mA and/or KV according to patient size, use of iterative reconstruction technique. Findings: No focal liver or splenic lesions Gallstones No pancreatic or adrenal mass Moderate bilateral renal parenchymal scar formation Bilateral renal calculi Mild right hydronephrosis secondary to 6 mm mid right ureteral calculus No bowel obstruction Normal appendix Urinary bladder contracted around a [place] catheter Impression: Bilateral renal calculi Mild right hydronephrosis secondary to 6 mm mid right ureteral calculus
[2024-05-09] MEDS: HYDROmorphone INJ 2 MG/ML VIAL 1 MG IVP (23:45)
[2024-05-09 23:46] LABS: Basophils # (Auto) 0.1 Thou/mm3 (0.0-0.2); Basophils % (Auto) 1 % (0-2.5); Eosinophils # (Auto) 0.2 Thou/mm3 (0.0-0.5); Eosinophils % (Auto) 5 % (0-10); Hematocrit 35.2 % (41.0-53.0); Hemoglobin 11.1 g/dL (13.5-16.0); Immature Granulocytes % (Auto) 0 % (0-0); Immature Granulocytes Auto 0.02 Thou/mm3 (0.00-0.00); Lymphocytes # (Auto) 1.9 Thou/mm3 (1.0-4.8); Lymphocytes % (Auto) 40 % (10-50); Mean Corpuscular HGB Conc 31.5 g/dl (31.0-37.0); Mean Corpuscular Hemoglobin 24.2 pg (25.0-35.0); Mean Corpuscular Volume 77 fL (80-100); Monocytes # (Auto) 0.6 Thou/mm3 (0.0-0.8); Monocytes % (Auto) 12 % (0-12); Neutrophils % (Auto) 42 % (37-80); Nucleated Red Blood Cell % 0 /100 WBC (0); Platelet Count 125 Thou/mm3 (140-440); Red Blood Count 4.58 Miln/mm3 (4.50-5.90); White Blood Count 4.8 Thou/mm3 (3.8-10.6)
[2024-05-10] MEDS: KETOROLAC INJ 30 MG/ML VIAL IVP
[2024-05-10 00:09] LABS: Alanine Aminotransferase 33 U/L (10-49); Albumin, Serum 3.9 gm/dL (3.5-5.0); Albumin/Globulin Ratio 1.5 (1.2-2.2); Alkaline Phosphatase 103 U/L (46-116); Amylase 126 U/L (30-118); Anion Gap 6 (7-16); Aspartate Amino Transferase 24 U/L (0-34); BUN/Creatinine Ratio 27 Ratio (12-20); Bilirubin,Total 0.4 mg/dL (0.3-1.2); Blood Urea Nitrogen 24 mg/dL (9-23); Calcium 9.1 mg/dL (8.3-10.6); Calcium (Corrected) 9.2 mg/dL (8.5-10.1); Carbon Dioxide 29.3 mMol/L (20.0-31.0); Chloride 109 mMol/L (98-107); Creatinine (Component) 0.9 mg/dL (0.6-1.3); Estimated Creatinine Clearance 116.2 mL/min (>60); Globulin 2.6 gm/dL (2.3-3.5); Glucose 140 mg/dL (74-106); Lipase 80 U/L (12-53); Magnesium 1.8 mg/dL (1.6-2.6); Osmolality,Calculated 292 (275-295); Potassium 3.8 mMol/L (3.4-5.1); Sodium 144 mMol/L (136-145); Total Protein 6.5 gm/dL (5.7-8.2); eGFR > 60 See Note
[2024-05-10] MEDS: SODIUM CHLORIDE 0.9% 1000 ML 1,000 ML 999 ML IV (00:18)
--- NOTE | 2024-05-10 01:14 | PRELIM_ITS ---
CT scan of the abdomen and pelvis without intravenous contrast (axial sections with sagittal and coronal reformats) May 09, 2024 at 2356 hours Clinical History: Abdominal pain. Reference: Prior report dated March 23, 2023 Findings: Lung bases: ground-glass opacities at the lung bases, nonspecific. Liver: Unremarkable. Gallbladder/Biliary system: There is a calcified calculus at the gallbladder neck, measuring 6 mm, without evidence of gallbladder wall thickening or pericholecystic fluid, as previously described. Spleen: There is a mildly enlarged spleen, measuring up to 15 cm, as previously described. Pancreas: The head of the pancreas is mildly atrophic. Adrenals: Unremarkable. Kidneys/Urinary bladder: There are small renal cysts, the largest in the right kidney measuring 2.2 cm, as previously described. There are small non- obstructing calculi in the right kidney, with the largest measuring 1 cm. There is a 6 mm obstructing calculus in the right mid ureter (image 152/321), with moderate right hydroureteronephrosis, as previously described. A [place] catheter is seen in the incompletely distended urinary bladder, limiting the evaluation for wall thickening. There is a 1.8 x 0.6 x 1.2 cm non-obstructing vesical calculus, as previously described. Bowel: No evidence of bowel obstruction. The appendix is within normal limits (image 189/321). There is a 1.5 cm duodenal diverticulum (image 113/321). Mesentery/Peritoneum: Unremarkable. Aorta: Unremarkable. Retroperitoneum: Unremarkable. Pelvis: Tiny prostatic calcifications are seen. Osseous structures: Mild osseous degenerative changes are noted. Abdominal wall: Unremarkable. Impression: 1. No evidence of bowel obstruction, free air or fluid collection on this noncontrast study. 2. A 6 mm obstructing calculus in the right mid ureter, with moderate right hydroureteronephrosis. 3. Non-obstructing renal and vesical calculi as described. 4. Cholelithiasis without evidence of acute cholecystitis. 5. Other findings as described above. Report Electronically Signed By: John Douglas 05/10/2024 1:11:56 AM [EST]
[2024-05-10 01:44] VITALS: BP 156/97; PULSE 78; RESP 18; TEMP 36.5; O2SAT 98
[2024-05-10 01:47] LABS: Triglycerides 154 mg/dL (30-150)
[2024-05-10 01:57] LABS: Collection Type, Urine Clean Catch
[2024-05-10 03:04] LABS: Amorphous Crystals,Urine Present (Absent); Bacteria,Urine 1+; Bilirubin,Urine Negative (Negative); Blood,Urine 2+ (Negative); Budding Yeast,Urine Present; Clarity,Urine Turbid (Clear/Hazy); Color,Urine Yellow (Lt Yel-Yel); Glucose, Urine Negative (Negative); Ketones,Urine Negative (Negative); Leukocyte Esterase,Urine Positive (Negative); Nitrite,Urine Positive (Negative); Protein,Urine 2+ (Neg - Trace); RBC,Urine 221 /hpf (0-3); Renal Epithelial Cells,Urine 2 /hpf (0-5); Squamous Epithelial Cell,Urine 1 /hpf (0-5); WBC,Urine 526 /hpf (0-5)
[2024-05-10 03:12] LABS: Culture Indicated,Urine Yes
[2024-05-10] MEDS: cefTRIAXone 1,000 MG in SODIUM CHLORIDE 0.9% (Popper) 50 ML 100 MG IV (03:59)
[2024-05-10 04:09] VITALS: BP 134/67; PULSE 89; RESP 18; TEMP 36.7; O2SAT 99
== END 2024-05-10 04:10 | disposition home or self-care (01) ==
PROVIDERS: Emergency Medicine; Physician Assistant; Emergency Provider Student in an Organized Health Care Education/Training Program; PCP Family Medicine
DX: N13.6 Pyonephrosis (principal); I69.351 Hemiplegia and hemiparesis following cerebral infarction affecting right dominant side; I69.392 Facial weakness following cerebral infarction; I69.328 Other speech and language deficits following cerebral infarction; Z46.6 Encounter for fitting and adjustment of urinary device; Z87.442 Personal history of urinary calculi; Z87.440 Personal history of urinary (tract) infections
CPT/HCPCS: 51702; 36415; 74176; 80053; 81001; 82150; 83690; 83735; 84478; 85025; 87077; 87086; 87186; 96361; 96374; 99284; J0696; J1885; J3490; J7030; J7050

== ENCOUNTER 2024-05-11 13:17 | Emergency (ER) | payer BC, MEDICARE, SELFPAY ==
[2024-05-11 13:18] VITALS: BMI 35.9
[2024-05-11 13:29] VITALS: BP 114/74; PULSE 107; RESP 18; TEMP 36.9; O2SAT 98
--- NOTE | 2024-05-11 13:34 | PD.EDRME ---
Rapid Medical Screening Exam E Arrival date/time: 05/11/24 13:17 53-year-old male with a history of hyperlipidemia, CVA, presents to the emergency room with a chief complaint of dysuria, fevers, and lower abdominal pain. Patient was seen here on 05/09/[address] scan found some bilateral ureter stones. I have greeted and performed a focused initial assessment of this patient. A comprehensive ED assessment and evaluation of the patient, analysis of all test results, and completion of the medical decision making process will be conducted by additional ED providers. Chief Complaint: Urogenital-Male Time Seen by Provider: 05/11/24 13:25 Vital signs: Vital Signs Temperature 98.5 F 05/11/24 13:29 Pulse Rate 107 H 05/11/24 13:29 Respiratory Rate 18 05/11/24 13:29 Blood Pressure 114/74 05/11/24 13:29 Pulse Oximetry (%) 98 05/11/24 13:29 Oxygen Delivery Method Room Air 05/11/24 13:29 Vital signs reviewed by provider: Yes
[2024-05-11] MEDS: KETOROLAC INJ 60 MG/2 ML VIAL 30 MG IM (13:44)
[2024-05-11 14:10] LABS: Basophils % (Auto) 1 % (0-2.5); Eosinophils # (Auto) 0.2 Thou/mm3 (0.0-0.5); Eosinophils % (Auto) 4 % (0-10); Hematocrit 35.7 % (41.0-53.0); Immature Granulocytes % (Auto) 0 % (0-0); Immature Granulocytes Auto 0.01 Thou/mm3 (0.00-0.00); Lymphocytes # (Auto) 1.8 Thou/mm3 (1.0-4.8); Lymphocytes % (Auto) 35 % (10-50); Mean Corpuscular HGB Conc 30.8 g/dl (31.0-37.0); Mean Corpuscular Hemoglobin 24.2 pg (25.0-35.0); Mean Corpuscular Volume 79 fL (80-100); Monocytes # (Auto) 0.4 Thou/mm3 (0.0-0.8); Monocytes % (Auto) 7 % (0-12); Neutrophils # (Auto) 2.9 Thou/mm3 (1.8-7.7); Neutrophils % (Auto) 54 % (37-80); Nucleated Red Blood Cell % 0 /100 WBC (0); Platelet Count 126 Thou/mm3 (140-440); RDW Standard Deviation 44.5 fL (35.1-43.9); Red Blood Count 4.54 Miln/mm3 (4.50-5.90); White Blood Count 5.3 Thou/mm3 (3.8-10.6)
[2024-05-11 14:17] LABS: Bacteria,Urine 3+; Bilirubin,Urine Negative (Negative); Blood,Urine 1+ (Negative); Clarity,Urine Turbid (Clear/Hazy); Collection Type, Urine Clean Catch; Color,Urine Yellow (Lt Yel-Yel); Glucose, Urine Negative (Negative); Ketones,Urine Negative (Negative); Leukocyte Esterase,Urine Positive (Negative); Nitrite,Urine Positive (Negative); PH,Urine 6.5 (5.0-7.0); Protein,Urine 1+ (Neg - Trace); RBC,Urine 25 /hpf (0-3); Specific Gravity,Urine 1.022 (1.001-1.035); Squamous Epithelial Cell,Urine 1 /hpf (0-5); WBC,Urine 531 /hpf (0-5)
[2024-05-11 14:31] LABS: Alanine Aminotransferase 28 U/L (10-49); Albumin, Serum 3.8 gm/dL (3.5-5.0); Albumin/Globulin Ratio 1.4 (1.2-2.2); Alkaline Phosphatase 97 U/L (46-116); Anion Gap 4 (7-16); Aspartate Amino Transferase 28 U/L (0-34); BUN/Creatinine Ratio 19 Ratio (12-20); Bilirubin,Total 0.5 mg/dL (0.3-1.2); Blood Urea Nitrogen 19 mg/dL (9-23); Calcium (Corrected) 9.2 mg/dL (8.5-10.1); Carbon Dioxide 27.9 mMol/L (20.0-31.0); Chloride 109 mMol/L (98-107); Globulin 2.7 gm/dL (2.3-3.5); Glucose 115 mg/dL (74-106); Lipase 32 U/L (12-53); Osmolality,Calculated 284 (275-295); Potassium 3.8 mMol/L (3.4-5.1); Sodium 141 mMol/L (136-145); Total Protein 6.5 gm/dL (5.7-8.2); eGFR > 60 See Note
--- NOTE | 2024-05-11 15:55 | PD.EDMALE ---
ED Male Genitalurinary RME/HPI General Chief complaint: Urogenital-Male Stated complaint: Kidney stone right dx on Sat, pt is now febrile, Time Seen by Provider: 05/11/24 13:25 Arrival date/time: 05/11/24 13:17 RME / HPI RME / HPI Narrative: 05/11/24 13:17 53-year-old male with a history of hyperlipidemia, CVA, presents to the emergency room with a chief complaint of dysuria, fevers, and lower abdominal pain. Patient was seen here on 05/09/[address] scan found some bilateral ureter stones. I have greeted and performed a focused initial assessment of this patient. A comprehensive ED assessment and evaluation of the patient, analysis of all test results, and completion of the medical decision making process will be conducted by additional ED providers. DR AMIN MAIN ED EVALUATION: 53 yo male patient with h/o CVA with expressive aphasia, left AKA, brought in by for chills, sweats, flank pain. Seen here 2 days ago and diagnosed with ureteral stone. Discharged on cefdinir. states they did not oyster picker the prescription because she says oral antibiotics never work for him. He has now started developing shaking chills and sweats. Related Data Home Medications ?Medication ?Instructions ?Recorded ?Confirmed atorvastatin 20 mg tablet 20 mg PO QDAY 12/26/21 08/26/23 duloxetine 30 mg capsule,delayed 60 mg PO QPM 12/26/21 08/26/23 release pregabalin 75 mg capsule 75 mg PO BID 12/26/21 08/26/23 docusate sodium 250 mg capsule 250 mg PO BID 05/17/22 08/26/23 diazepam 5 mg tablet (Valium) 5 mg PO PRN PRN Anxiety 09/24/22 08/26/23 eslicarbazepine 800 mg tablet 800 mg PO HS 07/24/23 08/26/23 (Aptiom) hydrocodone 5 mg-acetaminophen 325 1 tab PO Q6H PRN Pain 07/24/23 08/26/23 mg tablet midodrine 10 mg tablet 10 mg PO BID 07/31/23 08/26/23 ropinirole 1 mg tablet 1 mg PO QPM 07/31/23 08/26/23 ferrous sulfate 325 mg (65 mg 250 mg PO BID 08/26/23 08/26/23 iron) tablet [id number] 3.5 1 drp ophthalmic (eye) 4XD 08/26/23 08/26/23 mg/mL-10,000 unit/mL-0.1% eye drops promethazine-DM 6.25 mg-15 mg/5 mL 5 ml PO [id number] PRN Cough 08/26/23 08/26/23 oral syrup Previous Rx's ?Medication ?Instructions ?Recorded famotidine 20 mg tablet 20 mg PO QDAY #30 tabs 09/27/22 tamsulosin 0.4 mg capsule (Flomax) 0.4 mg PO QDAY #30 caps 05/23/23 cefdinir 300 mg capsule 300 mg PO BID #14 caps 05/10/24 hydrocodone 5 mg-acetaminophen 325 2 tab PO Q8H PRN pain #20 tabs 05/10/24 mg tablet ketorolac 10 mg tablet 10 mg PO Q8H PRN pain 5 days #10 05/10/24 tabs ondansetron 4 mg disintegrating 4 mg PO TID PRN nausea and 05/10/24 tablet vomiting 30 days #10 tabs tamsulosin 0.4 mg capsule (Flomax) 0.4 mg PO QDAY 7 days #7 caps 05/10/24 Allergies Allergy/AdvReac Type Severity Reaction Status Date / Time No Known Allergies Allergy Verified 02/24/24 03:26 Review of Systems Review of Systems Systems Reviewed: All systems reviewed, normal except as documented ED Exam Narrative Physical exam: GENERAL APPEARANCE: alert and oriented x 4, well-developed, well-nourished, no acute distress HEENT: Normocephalic, atraumatic; pupils equal, round, reactive to light; EOMI; mucous membranes pink, moist; oropharynx clear NECK: Supple LUNGS: CTABL; no wheezes, no rales, no rhonchi HEART: Regular rate, regular rhythm; normal S1, S2; no murmurs ABDOMEN: Obese, non distended; normal BS; soft, no tenderness, no guarding, no rebound; no masses, no organomegaly, no hernia BACK: no CVA tenderness EXTREMITIES: Left AKA NEUROLOGIC: awake; alert and oriented; expressive aphasia PSYCHIATRIC: appropriate mood and affect SKIN: warm, mildly diaphoretic, mild pallor; no rashes Course Quality Measures none Orders Category Date Time Status Bedside COVID-19 Antigen Test NOW Care 05/11/24 16:55 Active Bedside Influenza A&B Antigen Test NOW Care 05/11/24 16:55 Completed Referral - Speech Therapy Teacher Stat Cons 05/11/24 17:02 Active Blood Culture (Lab) Stat Lab 05/11/24 16:58 Received CBC Stat Lab 05/11/24 14:00 Completed CMP [Comprehensive Metabolic Panel] Stat Lab 05/11/24 14:00 Completed Lactate (Lactic Acid) Stat Lab 05/11/24 17:19 Completed Lipase Stat Lab 05/11/24 14:00 Completed Procalcitonin Stat Lab 05/11/24 17:19 Completed UA [Urinalysis] Stat Lab 05/11/24 13:35 Completed Urine Culture Stat Lab 05/11/24 13:35 Received Ketorolac Inj [Toradol Inj] Med 05/11/24 13:35 Discontinued 30 mg IM X1 ONE Piper/Tazo Inj [Zosyn Inj] 3.375 gm Med 05/11/24 16:53 Discontinued SODIUM CHLORIDE 0.9% (Popper) [Ns 0.9% (P)] 50 ml IV X1 Sodium Chloride 0.9% 1000 ml [Ns] 1,000 ml Med 05/11/24 16:54 Discontinued IV 999 mls/hr Sodium Chloride 0.9% 1000 ml [Ns] 1,000 ml Med 05/11/24 20:39 Active IV 999 mls/hr Tamsulosin HCl [Flomax] Med 05/11/24 20:40 Discontinued 0.4 mg PO X1 ONE Vital Signs Vital signs: Vital Signs Temperature 98.5 F 05/11/24 13:29 Pulse Rate 107 H 05/11/24 13:29 Respiratory Rate 18 05/11/24 13:29 Blood Pressure 114/74 05/11/24 13:29 Pulse Oximetry (%) 98 05/11/24 13:29 Oxygen Delivery Method Room Air 05/11/24 13:29 Urogenital - Male MDM Narrative MDM Narrative:: Patient discharged 2 days ago on cefdinir. Previous urine culture 11/22/2023 positive for Pseudomonas aeruginosa which was resistant to third-generation cephalosporins. Patient data External records reviewed:: [facility] previous records (Urine culture 11/06/2023: Pseudomonas aeruginosa resistant to ciprofloxacin and levofloxacin, sensitive to Zosyn) Clinical information provided by:: spouse Social determinants that could affect healthcare access:: none Patient has the following chronic illnesses:: CVA with residual deficits How is presenting disease/condition affected by chronic disease/condition?: uneffected by Evaluation data The following diagnostics were reviewed and interpreted by me:: lab results, radiology exam(s) and EKG tracing(s) Lab and/or radiology exams considered but not ordered:: None Interpretation Summary: As above Medications / Prescriptions Medications or Prescriptions considered but not ordered:: None Medication administrations:: Medication Administration History Sodium Chloride (Ns) 1,000 mls @ 999 mls/hr IV .Q1H1M ONE Stop: 05/11/24 21:39 Last Admin: 05/11/24 20:52 Dose: 999 mls/hr Documented By: ZAHEER Discontinued Medications Piperacillin Sod/Tazobactam (Sod 3.375 gm/ Sodium Chloride) 50 mls @ 100 mls/hr IV X1 ONE Stop: 05/11/24 17:22 Last Infusion: 05/11/24 19:15 Dose: Infused Documented By: Admin: 05/11/24 17:57 Dose: 100 mls/hr Documented By: CHRISTOFER Sodium Chloride (Ns) 1,000 mls @ 999 mls/hr IV .Q1H1M ONE Stop: 05/11/24 17:54 Last Admin: 05/11/24 17:51 Dose: 999 mls/hr Documented By: CHRISTOFER Ketorolac Tromethamine (Ketorolac Inj 60 Mg/2 Ml Vial) 30 mg IM X1 ONE Stop: 05/11/24 13:36 Last Admin: 05/11/24 13:44 Dose: 30 mg Documented By: MIL Tamsulosin HCl (Tamsulosin Hcl 0.4 Mg Capsule) 0.4 mg PO X1 ONE Stop: 05/11/24 20:41 Last Admin: 05/11/24 20:52 Dose: 0.4 mg Documented By: ZAHEER as above Consultations Consultation(s) initiated? (list below): Yes Consultation #1 (Physician, Specialty, Details): Patient will need transfer for urology consult for obstructing ureteral stone with concurrent infection and hydronephrosis. No urologist available for consult here. 2015: D/W Dr. Mejia, urology, Christianity. Does not recommend transfer or intervention at this time. Recommends pain control and antibiotics. Diagnosis Urogenital Male Differential Diagnosis: urinary tract infection, urethritis and other (renal stone, ureteral stone) Most likely diagnosis given after review of the tests above:: ureteral stone, UTI Admission Indicated Admission indicated?: indicated Explain why admission is indicated or not indicated:: Patient has obstructing ureteral stone with urinary infection. Based on previous urine culture results, patient should be treated with Admission Request Was there a request for admission?: Yes Admission Attestation Admission request attestation: Discussed case with [] from Hospitalist service regarding admission. Discussed patients ED course, exam findings, labs, and radiology results. The Hospitalist recommends transfer patient for urology consult. Discharge Plan Plan Patient Disposition: [facility] Service Needed for Transfer: Urology Prescriptions/Referrals Prescriptions/Med Rec: No Action Aptiom 800 mg tablet 800 mg PO HS Patient Comments: TAKE 1 TABLET BY MOUTH EVERY DAY hydrocodone-acetaminophen 5-325 mg Tablet 1 tab PO Q6H PRN (Reason: Pain) docusate sodium 250 mg Capsule 250 mg PO BID diazepam [Valium] 5 mg Tablet 5 mg PO PRN PRN (Reason: Anxiety) famotidine 20 mg Tablet 20 mg PO QDAY Qty: 30 0RF tamsulosin [Flomax] 0.4 mg capsule 0.4 mg PO QDAY Qty: 30 0RF neomycin-polymyxin B-dexameth 3.5mg/mL-10,000 unit/mL-0.1 % drops,suspension 1 drp OPHTHALMIC (EYE) 4XD Patient Comments: INSTILL 1 DROP INTO LEFT EYE FOUR TIMES A DAY FOR 7 DAYS ferrous sulfate 325 mg (65 mg iron) tablet 250 mg PO BID Patient Comments: TAKE 1 TABLET BY MOUTH TWICE A DAY promethazine-DM 6.25-15 mg/5 mL syrup 5 ml PO [id number] PRN (Reason: Cough) Patient Comments: TAKE 5 MLS BY MOUTH EVERY 6 HOURS NEEDED FOR COUGH hydrocodone-acetaminophen 5-325 mg tablet 2 tab PO Q8H MDD 6 PRN (Reason: pain) Qty: 20 0RF tamsulosin [Flomax] 0.4 mg capsule 0.4 mg PO QDAY 7 Days Qty: 7 0RF ketorolac 10 mg tablet 10 mg PO Q8H PRN (Reason: pain) 5 Days Qty: 10 0RF cefdinir 300 mg capsule 300 mg PO BID Qty: 14 0RF ondansetron 4 mg tablet,disintegrating 4 mg PO TID PRN (Reason: nausea and vomiting) 30 Days Qty: 10 0RF atorvastatin 20 mg tablet 20 mg PO QDAY Patient Comments: TAKE 1 TABLET BY MOUTH EVERY DAY duloxetine 30 mg capsule,delayed release(DR/EC) 60 mg PO QPM Patient Comments: TAKE 1 CAPSULE BY MOUTH EVERY DAY pregabalin 75 mg capsule 75 mg PO BID Patient Comments: TAKE 1 CAPSULE BY MOUTH TWICE A DAY ropinirole 1 mg tablet 1 mg PO QPM Patient Comments: TAKE 1 TABLET BY MOUTH AT BEDTIME midodrine 10 mg tablet 10 mg PO BID Patient Comments: TAKE 1 TABLET (10 MG) BY MOUTH TWICE A DAY HOLD IF BP SYSTOLIC OVER 120 Referrals: Nahum (PCP),MD Dmitry [Primary Care Provider] - In 1 week Problem List Clinical Impression: Acute UTI, Right ureteral calculus, Hydronephrosis of right kidney, Hydronephrosis with infection Patient/Caregiver Discharge Instructions Print Language: Irish Stand Alone Forms: Janice Award Info., Patient Portal Info Letter
--- NOTE | 2024-05-11 15:57 | PC.NURSE ---
1522: CALLED [facility] TO INITIATE TRANSFER FOR UROLOGIST D/T INFECTED STONE. 1530: TRANSFER NURSE TALKING WITH DR. AMIN 1540: TRANSFER CENTER CALLED BACK AND REQUESTED INFO BE FAXED TO [phone] 1555: FAXED INFO TO [facility]
--- NOTE | 2024-05-11 16:20 | PC.NURSE ---
Pt came in to the ED w/ w/ c/o severe pain. Pt unable to verbalize where his pain is, he says it's everywhere but then says he doesn't know. Pt had CVA 2 years ago that left him aphasic w/ difficulty expressing himself. Pt came in electric chair, transferred to [facility] using a walter lift with 2 nurses and pt's assisting. Pt tolerated well. Preparing to start IV and asked if his R) upper chest port could be used as he is a very hard stick. Asked Dr. Gonzalez if we could use pt's port and she said yes. Pt made comfortable on [facility]. Awaiting orders. Will cont to monitor.
[2024-05-11 16:41] VITALS: BP 132/68; PULSE 102; RESP 14; TEMP 36.5; O2SAT 96
--- NOTE | 2024-05-11 16:59 | PC.NURSE ---
call received from [facility] that fax did not arrive. Refaxed info at this time
[2024-05-11 17:47] LABS: Lactate (Lactic Acid) 1.3 mMol/L (0.4-2.0)
[2024-05-11] MEDS: SODIUM CHLORIDE 0.9% 1000 ML 1,000 ML 999 ML IV ×2 (17:51→20:52)
[2024-05-11] MEDS: PIPER/TAZO INJ 3.375 GM in SODIUM CHLORIDE 0.9% (Popper) 50 ML IV (17:57)
--- NOTE | 2024-05-11 19:29 | PC.CM ---
192 I received a call from [facility] stating they have been waiting for paperwork on this patient and they have not received anything. I went ahead and faxed over paperwork and I pushed over image. I called [facility] nurse and i gave her the update. 1729 I received a referral stating patient needs transfer for urology services for obstruction with renal stone. I let Naila know that i was extremely busy with 6 transfers. I asked them to manage this patient's transfer from the ED.
--- NOTE | 2024-05-11 20:09 | PC.NURSE ---
2038- Spoke to Genoveva at [facility] they stated that they had spoke to MD Gonzalez stating that MD Alford had informed her that it can be managed wit antibiotics here. Admitting team will be contacted
[2024-05-11] MEDS: TAMSULOSIN HCL 0.4 MG CAPSULE PO (20:52)
[2024-05-11] MEDS: HYDROcodone/APAP 5/325 TABLET 2 TAB PO (22:11)
[2024-05-11 22:36] VITALS: BP 119/78; PULSE 102; RESP 17; TEMP 36.7; O2SAT 98
--- NOTE | 2024-05-11 22:48 | PC.NURSE ---
Da forwarded imaging and transferred packet, Spoke to Yoni who stated they did had urology. He stated he would present the case
--- NOTE | 2024-05-11 23:10 | PC.NURSE ---
Spoke to Yoni at transfer center for Da, stated MD Alexander accepts ER to ER- report to be called [phone]
[2024-05-11 23:44] VITALS: BP 135/74; PULSE 101; RESP 18; TEMP 36.9; O2SAT 98
[2024-05-12 00:13] VITALS: BP 151/76; PULSE 99; RESP 20; O2SAT 99
--- NOTE | 2024-05-12 00:24 | PC.NURSE ---
Report given to EMS Nona Fitzpatrick.
== END 2024-05-12 00:32 | disposition short-term general hospital (02) ==
PROVIDERS: Nurse Practitioner Family; Emergency Provider Emergency Medicine; PCP Family Medicine
DX: N13.6 Pyonephrosis (principal); E78.5 Hyperlipidemia, unspecified; I69.320 Aphasia following cerebral infarction; Z89.612 Acquired absence of left leg above knee
CPT/HCPCS: 36415; 80053; 81001; 83605; 83690; 84145; 85025; 87040; 87077; 87086; 87186; 87400; 87811; 96361; 96365; 96372; 99285; J1885; J2543; J7030; J7050; A9270

== ENCOUNTER → 2024-05-22 | Outpatient (BNVA) | payer BC, MEDICARE, SELFPAY | END | disposition home or self-care (01) | PROVIDERS: PCP Family Medicine; Referring Provider Family Medicine; Visit Provider Urology | DX: N31.9 Neuromuscular dysfunction of bladder, unspecified (principal); Z46.6 Encounter for fitting and adjustment of urinary device; Z87.442 Personal history of urinary calculi; Z86.73 Personal history of transient ischemic attack (TIA), and cerebral infarction without residual deficits; Z99.3 Dependence on wheelchair; I10 Essential (primary) hypertension | CPT/HCPCS: 96372; 99212; J1580; G0463 ==

== ENCOUNTER 2024-06-23 19:45 | Inpatient (IN) | payer BC, MEDICARE, SELFPAY ==
[2024-06-23 20:48] VITALS: BP 124/84; PULSE 133; RESP 20; TEMP 39.3; O2SAT 100
--- NOTE | 2024-06-23 21:38 | EKG_ITS ---
[facility] Test Date: 2024-06-23 Pat Name: WILL JEFFERY Department: Room: - Gender: Male Consumer Analyst: : 1970 Requested By: Rodolfo Solis Order Number: [id number] Reading MD: Rodolfo Solis Measurements Intervals [place] Rate: 129 P: 66 MN: 160 QRS: 58 QRSD: 88 T: 51 QT: 315 QTc: 461 Interpretive Statements SINUS TACHYCARDIA LOW QRS VOLTAGE IN PRECORDIAL LEADS [QRS DEFLECTION < 1.0 mV IN CHEST LEADS] ANTERIOR MYOCARDIAL INFARCTION , PROBABLY OLD [40+ ms Q WAVE AND/OR ST/T ABNORMALITY IN V3/V4] Compared to ECG 08/25/2023 16:58:08 No significant changes /store/S0/[id number]
--- NOTE | 2024-06-23 21:47 | PD.EDADULT ---
ED General RME/HPI General Chief complaint: Fever Stated complaint: FEVER Time Seen by Provider: 06/23/24 21:33 Arrival date/time: 06/23/24 19:45 CC: Fever body aches HPI patient presents to the ER with his at bedside, the patient just had kidney stones blasted at [facility] yesterday. The patient has had a recurrent history of kidney stones, states that in the last several episodes of having his kidney stones blasted , the patient becomes febrile afterwards. Body aches are typical presentation per the for when he is feeling ill. Patient is awake alert well-hydrated clean appearing in his electric chair. Patient is noted to be febrile and tachycardia upon initial presentation sepsis protocol was initiated. 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 Related Data Home Medications ?Medication ?Instructions ?Recorded ?Confirmed atorvastatin 20 mg tablet 20 mg PO QDAY 12/26/21 05/22/24 duloxetine 30 mg capsule,delayed 60 mg PO QPM 12/26/21 05/22/24 release pregabalin 75 mg capsule 75 mg PO BID 12/26/21 05/22/24 diazepam 5 mg tablet (Valium) 5 mg PO PRN PRN Anxiety 09/24/22 05/22/24 eslicarbazepine 800 mg tablet 800 mg PO HS 07/24/23 05/22/24 (Aptiom) hydrocodone 5 mg-acetaminophen 325 1 tab PO Q6H PRN Pain 07/24/23 05/22/24 mg tablet midodrine 10 mg tablet 10 mg PO BID 07/31/23 05/22/24 ropinirole 1 mg tablet 1 mg PO QPM 07/31/23 05/22/24 promethazine-DM 6.25 mg-15 mg/5 mL 5 ml PO [id number] PRN Cough 08/26/23 05/22/24 oral syrup Previous Rx's ?Medication ?Instructions ?Recorded famotidine 20 mg tablet 20 mg PO QDAY #30 tabs 09/27/22 tamsulosin 0.4 mg capsule (Flomax) 0.4 mg PO QDAY #30 caps 05/23/23 hydrocodone 5 mg-acetaminophen 325 2 tab PO Q8H PRN pain #20 tabs 05/10/24 mg tablet Allergies Allergy/AdvReac Type Severity Reaction Status Date / Time No Known Allergies Allergy Verified 05/22/24 10:40 Review of Systems Review of Systems ROS Unobtainable: unobtainable due to mental status Past Medical History Past Medical History NEUROLOGIC: Positive Cerebrovascular Accident, Seizures and Paralysis; Negative Neurological Disorders, Transient Ischemic Attacks (TIA), Dementia, Alzheimer's Disease, Parkinson's Disease, Brain Tumor, Meningitis, Epilepsy, Multiple Sclerosis, Cerebral Palsy, Amyotrophic Lateral Sclerosis (ALS/Bronwyn Gehrig's), Guillain-Sherman Syndrome, Spina Bifida, Peripheral Neuropathy, Rocha's Palsy, Subdural Hematoma, Migraine, Head Trauma, Spinal Cord Injury or Traumatic Brain Injury CARDIAC: Positive Hypotension; Negative Cardiac Disorders, Cardiac Arrhythmia, Atrial Fibrillation, Angina, Heart Murmur, Coronary Artery Disease, Atherosclerotic Heart Disease, Peripheral Vascular Disease, Hypercholesterolemia, Aneurysm, Congestive Heart Failure, Congenital Heart Disease, Valvular Heart Disease, Rheumatic Fever, Cardiomyopathy, Edema, Pericarditis, Cellulitis, Deep Vein Thrombosis, Hypertension or Varicose Veins RESPIRATORY: Negative Chronic Obstructive Pulmonary Disease (COPD), Asthma, Bronchitis, Emphysema, Pneumonia, Pulmonary Fibrosis, Tuberculosis, Pulmonary Embolism, Pulmonary Edema or Sleep Apnea GASTROINTESTINAL: Positive Gastrointestinal Disorders and Obesity; Negative Hepatitis, Cirrhosis, Pancreatitis, Celiac Disease, Gall Bladder Disease, Gastrointestinal Bleed, Esophageal Varices, Guadalupe's Esophagus, Colitis, Ulcerative Colitis, Diverticulitis, Diverticulosis, Ulcer, Colorectal Cancer, Irritable Bowel, Crohn's Disease, Obstructive Bowel, Hiatal Hernia, Hemorrhoids or Gastroesophageal Reflux Disease GENITOURINARY: Positive Genitourinary Disorders, Renal Disease and Kidney Stones; Negative Inguinal Hernia, Dialysis, Prostate Cancer or Benign Prostatic Hyperplasia REPRODUCTIVE: Negative Breast Cancer, Fibroids, Genital Herpes, Gonorrhea, Syphilis or Testicular Cancer MUSCULOSKELETAL: Positive Osteomyelitis; Negative Muscular Dystrophy, Myasthenia Gravis, Marfan's Syndrome, Bone Cancer, Arthritis, Rheumatoid Arthritis, Osteoporosis, Degenerative Disk Disease, Gout, Scoliosis, Carpal Tunnel Syndrome, Fibromyalgia, Fractures, Degenerative Joint Disease or Poliovirus ENT: Negative Cataracts, Glaucoma, Blind, Retinal Detachment, Macular Degeneration, Ear Infection, Deafness, Head Trauma or Eye Prosthesis ENDOCRINE: Negative Endocrine Disorders, Diabetes Mellitus Type 1, Diabetes Mellitus Type 2, Hypoglycemia, Walbridge's Syndrome, Fabian's Disease, Hyperthyroidism, Hypothyroidism, Parathyroid Disease, Pituitary Disease, Systemic Lupus Erythematosus, Syndrome of Inappropriate Antidiuretic Hormone (SIADH), Adrenal Disease or Graves' Disease HEMATOLOGIC: Negative Blood Disorders, Anemia, Leukemia, Hemophilia, Thalassemia, Sickle Cell Disease or Clotting Problems PSYCHO/SOCIAL: Positive Depression and Anxiety; Negative Psychiatric Problems, Schizophrenia, Recreational Drug Use, Bipolar Disorder, Behavior Problems, Self-Mutilation, Attention Deficit Disorder, Attention Deficit Hyperactivity Disorder, Depression, Post Traumatic Stress Disorder or Eating Disorder OTHER HISTORY: Positive Hospitalization, Shingles, MRSA and Chicken Pox; Negative Autoimmune Disease, Down Syndrome, Autism, Developmental Delay, Falls, Blood Transfusions, Blood Transfusion Reaction, Anesthesia Reactions, Organ Transplant, Chemotherapy, Radiation Therapy, Hyperbaric Therapy, VRSA, Vancomycin-Resistant Enterococci, Human Immunodeficiency Virus (HIV), Measles, Mumps, Rubella (Hebrew Measles), Pertussis, Clostridium Difficile, Cancer, Breast Cancer, Cervical Cancer, Colorectal Cancer, Lung Cancer, Ovarian Cancer, Prostate Cancer or Testicular Cancer Family History FAMILY HISTORY: Positive Family Surgery; Negative Family Psychiatric Problems, Family Respiratory Disorders, Family Cardiac Disorders, Family Gastrointestinal Problems, Family Cancer or Family Anesthesia Reaction Surgical History SURGICAL: Positive Amputation; Negative Cardiac Surgery, Open Heart Surgery, Coronary Artery Bypass Graft, Valve Replacement, Vascular Surgery, Coronary Stent, Cardiac Catheterization, Pacemaker, Angiogram, Auto Implanted Cardiovert Defib, Carotid Endarterectomy, Endocrine Surgery, Thyroidectomy, Ear Surgery, Tympanostomy Tube, Eye Surgery, Nose Surgery, Oral Surgery, Tonsillectomy, Adenoidectomy, Cochlear Implant, Corneal Transplant, Throat Surgery, Abdominal Surgery, Tracheostomy, Gastric Bypass Surgery, Gastrostomy, Bowel Surgery, Nephrectomy, Transurethral Resection, Joint Replacement, Open Reduction Internal Fixation, Arthroscopy, Neurologic Surgery, Brain Shunt, Mastectomy, Lumpectomy, Hysterectomy, Tubal Ligation, Section, Vasectomy or Organ Transplant Social History SMOKING STATUS: Never smoker SECOND HAND EXPOSURE: No SUBSTANCE USE: does not use ED Exam Narrative Physical exam: [General: Obese in discomfort but appears not in any acute distress patient assessed initially upright in his electric chair. Reexamined once the patient was in the bed and in a gown. Head normocephalic HEENT: Eyes pupils are PERRLA EOMs are intact mouth pink dry membranes uvula is midline nose no rhinorrhea. All other subsystems of ATTR within acceptable limits Neck is supple nontender Chest equal chest rise nontender to palpation Respiratory: Clear to auscultation no wheezes crackles or rubs CV: Rate rhythm is regular no murmurs rubs or clicks Abdomen is distended secondary to body habitus soft nontender no masses positive bowel sounds all 4 quadrants, suprapubic catheter site clean dry intact suprapubic catheter is currently clamped. Note: It is attached to a stent and will be coming out in approximately 1 week. , [facility] admitting from the penis, no meatus blood or exudate. Draining yellow urine. Back: No CVA tenderness no spinous process tenderness from cervical spine thoracic and lumbar spine Skin: Warm to touch. Intact no petechiae rash induration ulceration or crepitus. Left BKA stump clean dry and intact, surgical line well-healed. Extremities: Left lower extremity BKA. Right-sided hemiaplasia. Neuro: Awake alert oriented x1, self, Glascow coma 15 no focal deficits] Course Quality Measures none Orders Category Date Time Status Bedside COVID-19 Antigen Test NOW Care 06/23/24 21:38 Active Bedside Influenza A&B Antigen Test NOW Care 06/23/24 21:38 Completed Bedside Influenza A&B Antigen Test NOW Care 06/24/24 05:12 Completed Paint Sprayer Sandblaster STAT Care 06/23/24 21:38 Active Continuous Pulse Oximetry STAT Care 06/23/24 21:38 Completed EKG (ED ONLY) *Do not use* NOW Care 06/23/24 21:38 Completed In and Out Catheter X1PRN Care 06/23/24 21:38 Active Insert IV NOW Care 06/23/24 21:38 Active Miscellaneous Nursing Order NOW Care 06/23/24 22:33 Active Miscellaneous Nursing Order NOW Care 06/24/24 01:04 Active NPO STAT Care 06/23/24 21:38 Active Strict Intake and Output Routine Care 06/23/24 21:[address] abdomen pelvis wo con Stat Exams 06/24/24 02:49 Completed EKG (ED Only) Stat Exams 06/23/24 21:38 Draft XR chest 1V portable Stat Exams 06/24/24 01:04 Completed B-Type Natriuretic Peptide Stat Lab 06/23/24 23:31 Completed Blood Culture (Lab) Stat Lab 06/23/24 23:50 Received CBC Stat Lab 06/23/24 23:31 Completed CBC Stat Lab 06/24/24 02:19 Completed Comprehensive Metabolic Panel Stat Lab 06/23/24 23:31 Completed LDH (Lactate Dehydrogenase) Stat Lab 06/23/24 23:31 Completed Lactate (Lactic Acid) Stat Lab 06/23/24 23:31 Completed Lipase Stat Lab 06/23/24 23:31 Completed Magnesium Stat Lab 06/23/24 23:31 Completed Partial Thromboplastin Time Stat Lab 06/23/24 23:31 Completed Phosphorous Stat Lab 06/23/24 23:31 Completed Procalcitonin Stat Lab 06/23/24 23:31 Completed Prothrombin Time with INR Stat Lab 06/23/24 23:31 Completed Troponin I Stat Lab 06/23/24 23:31 Completed Urinalysis Stat Lab 06/23/24 23:43 Completed Urine Culture Stat Lab 06/23/24 23:43 Received Acetaminophen Ivpb [Ofirmev Inj] Med 06/23/24 21:45 Discontinued 1,000 mg in 100 ml IV Q6HR Doxycycline Inj [Vibramycin Inj] 100 mg Med 06/23/24 22:50 Discontinued Sodium Chloride 0.9% (Pop) [NS 0.9% mini bag] 100 ml IV X1 HYDROmorphone INJ [Dilaudid Inj] Med 06/24/24 02:11 Discontinued 0.5 mg IVP X1 ONE HYDROmorphone INJ [Dilaudid Inj] Med 06/24/24 07:48 Discontinued 0.5 mg IVP X1 ONE Ondansetron Inj [Zofran Inj] Med 06/24/24 02:11 Discontinued 4 mg IV X1 ONE Piper/Tazo 3.375 gm Premix [Zosyn] Med 06/23/24 22:50 Discontinued 3.375 gm in 50 ml IV X1 Sodium Chloride 0.9% 1000 ml [Ns] 1,000 ml Med 06/24/24 06:44 Active IV 150 mls/hr Sodium Chloride 0.9% 1000 ml [Ns] 1,000 ml Med 06/23/24 22:51 Discontinued IV 999 mls/hr Oxygen Delivery NOW RT 06/23/24 21:38 Active Vital Signs Vital signs: Vital Signs Temperature 102.8 F H 06/23/24 20:48 Pulse Rate 133 H 06/23/24 20:48 Respiratory Rate 20 06/23/24 20:48 Blood Pressure 124/84 06/23/24 20:48 Pulse Oximetry (%) 100 06/23/24 20:48 Oxygen Delivery Method Room Air 06/23/24 20:48 Discharge Plan Plan Patient Disposition: Admit Acute Care w/in Hospital Disposition Comment: Hospitalist admit Dr. Finch to consult Problem List Clinical Impression: Acute UTI, Calculus of right kidney, History of stroke, Status post placement of ureteral stent, SIRS (systemic inflammatory response syndrome) MDM Patient Acuity High Acuity (complete MDM) Narrative: Patient has a long history of renal calculi and urolithiasis. Patient is seen by Dr. Finch and his team at [facility]. Clinical Information Provided by: patient and spouse Medical Records reviewed [facility] and Family provided Chronic Illness/Social Conditions which may negatively complicate care or outcome(s)-explain: CVA/aphasic Medication Administration(s) Medication Administration History Sodium Chloride (Ns) 1,000 mls @ 150 mls/hr IV .Q6H40M [facility] Stop: 07/24/24 06:43 Last Admin: 06/24/24 07:41 Dose: 150 mls/hr Documented By: YANIRA Discontinued Medications Hydromorphone HCl (Hydromorphone Inj 2 Mg/Ml Vial) 0.5 mg IVP X1 ONE Stop: 06/24/24 02:12 Last Admin: 06/24/24 03:35 Dose: 0.5 mg Documented By: LEONEL Hydromorphone HCl (Hydromorphone Inj 2 Mg/Ml Vial) 0.5 mg IVP X1 ONE Stop: 06/24/24 07:49 Last Admin: 06/24/24 08:16 Dose: 0.5 mg Documented By: YANIRA Acetaminophen (Ofirmev Inj) 1,000 mg in 100 mls @ 250 mls/hr IV Q6HR [facility] Stop: 06/24/24 12:23 Last Admin: 06/24/24 01:40 Dose: Not Given Documented By: LEONEL Non-Admin Reason: Discontinued Infusion: 06/24/24 01:40 Dose: Infused Documented By: Admin: 06/23/24 23:58 Dose: 250 mls/hr Documented By: LEONEL Piperacillin/Tazobactam/Dextrose (Zosyn) 3.375 gm in 50 mls @ 100 mls/hr IV X1 ONE Stop: 06/23/24 23:19 Last Infusion: 06/24/24 00:43 Dose: Infused Documented By: Admin: 06/23/24 23:59 Dose: 100 mls/hr Documented By: LEONEL Doxycycline Hyclate 100 mg/ (Sodium Chloride) 100 mls @ 100 mls/hr IV X1 ONE Stop: 06/23/24 23:49 Last Infusion: 06/24/24 03:37 Dose: Infused Documented By: Admin: 06/24/24 02:13 Dose: 100 mls/hr Documented By: LEONEL Sodium Chloride (Ns) 1,000 mls @ 999 mls/hr IV .Q1H1M ONE Stop: 06/23/24 23:51 Last Infusion: 06/24/24 01:40 Dose: Infused Documented By: Admin: 06/23/24 23:56 Dose: 999 mls/hr Documented By: LEONEL Ondansetron HCl (Ondansetron Inj 2 Mg/Ml Inj 2 Ml) 4 mg IV X1 ONE; Protocol Stop: 06/24/24 02:12 Last Admin: 06/24/24 03:34 Dose: 4 mg Documented By: LEONEL
[2024-06-23] MEDS: SODIUM CHLORIDE 0.9% 1000 ML 1,000 ML 999 ML IV (23:56)
[2024-06-23 23:57] LABS: Lactate (Lactic Acid) 1.3 mMol/L (0.4-2.0)
[2024-06-23] MEDS: ACETAMINOPHEN IVPB 1,000 MG/100 ML VIAL 250 MG IV (23:58)
[2024-06-23] MEDS: PIPER/TAZO 3.375 GM PREMIX 3.375 GM/50 ML BAG IV (23:59)
[2024-06-24] VITALS (13 sets, daily range): BP systolic 95–129; BP diastolic 58–87; PULSE 73–122; RESP 16–95; TEMP 36.2–37.2; O2SAT 94–100
[2024-06-24] LABS: Basophils % (Auto) 0 % (0-2.5); Eosinophils % (Auto) 0 % (0-10); Hematocrit 22.1 % (41.0-53.0); Immature Granulocytes % (Auto) 1 % (0-0); Immature Granulocytes Auto 0.07 Thou/mm3 (0.00-0.00); Lymphocytes # (Auto) 2.1 Thou/mm3 (1.0-4.8); Lymphocytes % (Auto) 17 % (10-50); Mean Corpuscular HGB Conc 32.1 g/dl (31.0-37.0); Mean Corpuscular Hemoglobin 24.9 pg (25.0-35.0); Mean Corpuscular Volume 78 fL (80-100); Monocytes # (Auto) 1.3 Thou/mm3 (0.0-0.8); Monocytes % (Auto) 11 % (0-12); Neutrophils % (Auto) 72 % (37-80); Nucleated Red Blood Cell % 0 /100 WBC (0); Platelet Count 202 Thou/mm3 (140-440); RDW Standard Deviation 41.5 fL (35.1-43.9); Red Blood Count 2.85 Miln/mm3 (4.50-5.90); White Blood Count 12.5 Thou/mm3 (3.8-10.6)
[2024-06-24 00:05] LABS: Hemoglobin 7.1 g/dL (13.5-16.0)
[2024-06-24 00:21] LABS: INR 1.1 (0.9-1.3); Partial Thromboplastin Time 31.5 Seconds (22.0-36.0); Prothrombin Time 11.8 Seconds (9.0-12.2)
[2024-06-24 00:27] LABS: Alanine Aminotransferase 15 U/L (10-49); Albumin, Serum 3.9 gm/dL (3.5-5.0); Albumin/Globulin Ratio 1.4 (1.2-2.2); Alkaline Phosphatase 88 U/L (46-116); Anion Gap 7 (7-16); Aspartate Amino Transferase 12 U/L (0-34); BUN/Creatinine Ratio 18 Ratio (12-20); Bilirubin,Total 0.3 mg/dL (0.3-1.2); Blood Urea Nitrogen 20 mg/dL (9-23); Calcium (Corrected) 9.1 mg/dL (8.5-10.1); Carbon Dioxide 27.6 mMol/L (20.0-31.0); Chloride 110 mMol/L (98-107); Creatinine (Component) 1.1 mg/dL (0.6-1.3); Globulin 2.7 gm/dL (2.3-3.5); Glucose 152 mg/dL (74-106); LDH (Lactate Dehydrogenase) 180 U/L (120-246); Lipase 27 U/L (12-53); Magnesium 1.8 mg/dL (1.6-2.6); Osmolality,Calculated 294 (275-295); Phosphorous 2.8 mg/dL (2.4-5.1); Potassium 3.8 mMol/L (3.4-5.1); Sodium 145 mMol/L (136-145); Total Protein 6.6 gm/dL (5.7-8.2); Troponin I < 0.020 ng/mL (0.0-0.045); eGFR > 60 See Note
[2024-06-24 00:32] LABS: Procalcitonin 0.16 ng/ml (0.0-0.49)
--- NOTE | 2024-06-24 01:04 | XR_ITS ---
Examination: AP chest single view Technique one AP portable semiupright chest single view Exam date and time: June 24, 2024 0122 hrs. Comparison August 25, 2023 Indications: Onset fever today Findings: Mild prominence of ventricle Mild vascular congestion. No lobar pneumonia. Right internal jugular Port-A-Cath tip right atrium Impression: No pneumonia identified
[2024-06-24 01:26] LABS: Collection Type, Urine Clean Catch; Squamous Epithelial Cell,Urine 0 /hpf (0-5)
[2024-06-24 01:32] LABS: Bacteria,Urine 3+; Bilirubin,Urine Negative (Negative); Blood,Urine 3+ (Negative); Color,Urine Yellow (Lt Yel-Yel); Glucose, Urine Negative (Negative); Ketones,Urine Negative (Negative); Leukocyte Esterase,Urine Positive (Negative); Nitrite,Urine Negative (Negative); PH,Urine 6.5 (5.0-7.0); Protein,Urine 2+ (Neg - Trace); RBC,Urine 552 /hpf (0-3); Specific Gravity,Urine 1.023 (1.001-1.035); Urobilinogen,Urine Negative mg/dL (0.0-1.0); WBC,Urine 946 /hpf (0-5)
[2024-06-24 02:04] LABS: Clarity,Urine Turbid (Clear/Hazy)
[2024-06-24] MEDS: DOXYCYCLINE INJ 100 MG in SODIUM CHLORIDE 0.9% (POP) 100 ML IV (02:13)
[2024-06-24 02:16] LABS: B-Type Natriuretic Peptide 23 pg/mL (0-100)
[2024-06-24 02:35] LABS: Basophils % (Auto) 0 % (0-2.5); Eosinophils % (Auto) 0 % (0-10); Hematocrit 30.8 % (41.0-53.0); Hemoglobin 9.8 g/dL (13.5-16.0); Immature Granulocytes % (Auto) 1 % (0-0); Immature Granulocytes Auto 0.04 Thou/mm3 (0.00-0.00); Lymphocytes # (Auto) 1.4 Thou/mm3 (1.0-4.8); Lymphocytes % (Auto) 18 % (10-50); Mean Corpuscular HGB Conc 31.8 g/dl (31.0-37.0); Mean Corpuscular Hemoglobin 24.6 pg (25.0-35.0); Mean Corpuscular Volume 77 fL (80-100); Monocytes # (Auto) 0.8 Thou/mm3 (0.0-0.8); Monocytes % (Auto) 10 % (0-12); Neutrophils # (Auto) 5.5 Thou/mm3 (1.8-7.7); Neutrophils % (Auto) 71 % (37-80); Nucleated Red Blood Cell % 0 /100 WBC (0); Platelet Count 135 Thou/mm3 (140-440); RDW Standard Deviation 41.2 fL (35.1-43.9); Red Blood Count 3.98 Miln/mm3 (4.50-5.90); White Blood Count 7.8 Thou/mm3 (3.8-10.6)
--- NOTE | 2024-06-24 02:49 | XR_ITS ---
Examination: CT abdomen and pelvis without contrast. Coronal 3-D reconstructions. Sagittal 2-D reconstructions. Date and time of exam:June 24, 2024 0413 hrs. Indications: Flank pain fever today, lithotripsy yesterday CTDI: vol (mGy): 18.5 DLP: (mGycm): 1052 Technique: Axial images of the abdomen have been obtained, 3 mm slice thickness Intravenous contrast material has not been administered. Low dose protocols were performed. One or more of the following dose reduction techniques were used; automated exposure control, adjustment of the mA and/or KV according to patient size, use of iterative reconstruction technique. Findings: No focal liver or splenic lesions No gallstones No pancreatic or adrenal mass Right ureteral stent satisfactory position with multiple 2 to 6 mm right ureteral calculi No significant hydronephrosis The axial images demonstrate the catheter in the urinary bladder with suprapubic cystostomy 2 and contracted urinary bladder Impression: Right ureteral stent satisfactory position with no significant hydronephrosis
[2024-06-24] MEDS: ONDANSETRON INJ 2 MG/ML INJ 2 ML 4 MG IV (03:34)
[2024-06-24] MEDS: HYDROmorphone INJ 2 MG/ML VIAL 0.5 MG IVP ×2 (03:35→08:16)
--- NOTE | 2024-06-24 04:04 | PD.EDADDENDU ---
Emergency Room Addendum <Joan Paredes - Last Filed: 06/24/24 05:51> Addendum Narrative: 2300: Care assumed from Dr. Rodolfo Archer (emergency provider). Past medical, surgical, social and family history reviewed. Vitals and home medications reviewed. Results and treatment plan discussed. I will assume the care of the patient at this time and will follow the patient, pending labs and EKG. 2235: Sinus tachycardia, 129 BPM, normal axis, no ectopy, Q-waves in v3 and v4, no acute ischemia. 2056: UTI, Sepsis. 599: Care assumed by Dr. Clement (emergency physician). Past medical, surgical, social and family history reviewed. Vitals and home medications reviewed. Results and treatment plan discussed. They will assume the care of the patient at this time and will follow the patient, pending CT & CXR report. <Jia Higgins - Last Filed: 06/25/24 05:03> Addendum Narrative: 2300: Care assumed from Rodolfo Archer NP (emergency provider). Past medical, surgical, social and family history reviewed. Vitals and home medications reviewed. Results and treatment plan discussed. I will assume the care of the patient at this time and will follow the patient, pending labs and EKG. EKG done at 2235: Sinus tachycardia, 129 BPM, normal axis, no ectopy, Q-waves in v3 and v4, no acute ischemia. WBC count is normal, CMP is normal, Troponin is normal, BNP is normal, Lipase is normal, Procalcitonin is normal, UA is positive for a UTI. CXR is an exhalation view, but shows sharp diaphragmatic edges, normal cardiac silhouette, and no infiltrates, according to my interpretation. Patient is febrile, tachycardic, and tachypneic here in the ED. Patient received IVF boluses, Tylenol, and antibiotics, which have improved his symptoms 0600: Care assumed by Dr. Clement (emergency physician). Past medical, surgical, social and family history reviewed. Vitals and home medications reviewed. Results and treatment plan discussed. They will assume the care of the patient at this time and will follow the patient, pending CT abdomen pelvis.
--- NOTE | 2024-06-24 05:36 | PRELIM_ITS ---
CT scan of the abdomen and pelvis without intravenous contrast (axial sections with sagittal and coronal reformats) June 24, 2024 0413 hours Clinical History: Flank pain Reference is made to the prior report dated May 09, 2024. Findings: Bibasilar dependent atelectasis is present. The liver, gallbladder, pancreas, spleen, left kidney and adrenals are unremarkable on this noncontrast study. There is a 2 cm right renal cyst. There is interval placement of a right nephroureteral stent catheter with its proximal end in the lower pole calyx and distal end in the urinary bladder. There is mild right hydroureteronephrosis without ureteric or renal calculus. No evidence of bowel obstruction. The appendix is within normal limits. There is no mesenteric or retroperitoneal adenopathy. A [place] catheter is seen in the urinary bladder. The urinary bladder is incompletely distended at the time of the examination. There is no free fluid or free air. Degenerative changes are identified in the spine. Impression: Interval placement of a right nephroureteral stent catheter. There is mild right hydroureteronephrosis without ureteric or renal calculus. Report Electronically Signed By: Lana Alcala 06/24/2024 5:36:27 AM [EST]
--- NOTE | 2024-06-24 06:22 | PD.EDADDENDU ---
Emergency Room Addendum <Jose Clement MD - Last Filed: 06/24/24 09:52> Addendum Narrative: Patient is signed out 0600 hrs. is someone who had lithotripsy done 3 days ago comes in with a fever tachycardia but not hypotensive and normal lactic acidosis. Lactic acid was 1.3. Glucose 152. White count was 7.8 hemoglobin is 9.8 with a chronic anemia basically stable. Urine is positive for 946 white blood cells with 552 red blood cells. Consistent with a urinary tract infection. Chest x-ray reveals a normal heart size no infiltrates no effusion there is a central line/port in the right chest. Otherwise chest x-ray is negative. CT abdomen pelvis report is pending at 0624 hrs. But the [facility] radiology report reveals interval stent placement and mild hydro with no other acute finding. Patient evidently got a dose of Zosyn and Doxycycline this morning. 0638: Patient and made aware of plan for admission. Per , patient was referred to [facility] [place] by urolgist Dr. Finch. states patient underwent lithotripsy and stent placement at [facility] by urologist Dr. Hamilton 2 days ago and can be reached at . Patient at this time is complaining of pain although adds since his CVA in 2020, it is difficult for patient to localize pain. Patient last received 0.5mg Dilaudid at 03:35 AM. 0715: Our apartment maintenance technician reports she called the phone number provided from the and the outpatient clinic reported they do not have patient in their records. 0717: I spoke with urologist Dr. Finch. Discussed patients PMHx, labs, and radiology results. States he will be out of town on a conference on however will come evaluate the patient in the ED. 0723: I spoke with our transfer nurse Santhosh, requested is she can get in contact with urologist Dr. Sai Hamilton at [facility]. 0755: Our transfer nurse Santhosh states she got a hold of on-call provider for Dr. Hamilton and will be returning the call at 09:00 AM. 0940: Urologist Dr. Finch reports he has evaluated the patient in the ED and agrees to consult. 0948: I spoke with resident working with Dr. Garza. Discussed patients PMHx, HPI, ED course, exam findings, labs, and radiology results. The hospitalist agree to accept the patient for admission. At [address] Finch and he states he will be consulting and be available to the hospitalist for any urological needs this patient may require. Note this patient just had a stent and lithotripsy done 2 days ago in the [facility]. I called the hospitalist and talk to the resident on-call Dr. Balnca and they will admit the patient. Dr. Hanna is also in the department and was informed. Reevaluation the patient at 0955 hrs. shows patient is comfortable and they were advised and updated that he will be admitted and staying here. <Barbie Chowdary - Last Filed: 06/24/24 09:49> Addendum Narrative: Patient is signed out 0600 hrs. is someone who had lithotripsy done 3 days ago comes in with a fever tachycardia but not hypotensive and normal lactic acidosis. Lactic acid was 1.3. Glucose 152. White count was 7.8 hemoglobin is 9.8 with a chronic anemia basically stable. Urine is positive for 946 white blood cells with 552 red blood cells. Consistent with a urinary tract infection. Chest x-ray reveals a normal heart size no infiltrates no effusion there is a central line/port in the right chest. Otherwise chest x-ray is negative. CT abdomen pelvis report is pending at 0624 hrs. But the [facility] radiology report reveals interval stent placement and mild hydro with no other acute finding. Patient evidently got a dose of Zosyn and Doxycycline this morning. 0638: Patient and made aware of plan for admission. Per , patient was referred to [facility] [place] by urolgist Dr. Finch. states patient underwent lithotripsy and stent placement at [facility] by urologist Dr. Hamilton 2 days ago and can be reached at . Patient at this time is complaining of pain although adds since his CVA in 2020, it is difficult for patient to localize pain. Patient last received 0.5mg Dilaudid at 03:35 AM. 0715: Our apartment maintenance technician reports she called the phone number provided from the and the outpatient clinic reported they do not have patient in their records. 17: I spoke with urologist Dr. Finch. Discussed patients PMHx, labs, and radiology results. States he will be out of town on a conference on however will come evaluate the patient in the ED. 722: I spoke with our transfer nurse Santhosh, requested is she can get in contact with urologist Dr. Sai Hamilton at [facility]. 0755: Our transfer nurse Santhosh states she got a hold of on-call provider for Dr. Hamilton and will be returning the call at 09:00 AM. 40: Urologist Dr. Finch reports he has evaluated the patient in the ED and agrees to consult. 48: I spoke with resident working with Dr. Garza. Discussed patients PMHx, HPI, ED course, exam findings, labs, and radiology results. The hospitalist agree to accept the patient for admission.
--- NOTE | 2024-06-24 07:22 | PC.CC ---
Addendum entered by Markie Hidalgo RN 06/24/24 14:43: [address] Lucius BUSTAMANTE with Dr. Sai Hamilton. I informed him that pt is admitted and does't need transfer. He stated if there is any need or have any questions. We can reach them back. Addendum entered by Markie Hidalgo RN 06/24/24 10:30: 1028 I didn't receive any call from [facility] and I checked with ED, doctor's scribe informed me that it is no longer needed, pt is being admitted and Dr. Guzman/urology is consulting the pt. Original Note: [address] Clement. 0740 I found the urology dept number from [facility] website, called #[phone] and spoke to Qi after hour answering service. She stated she will call us back once the Dr. Sai Hamilton is available, close to 0900am. [address] Clement that pt has lithotripsy and stent placement 2 days ago by Sai Hamilton MD at [facility]. Pt presents to ED with fever, tachycardia and new onset UTI. Dr. Clement stated he wants to speak to Dr. Hamilton.
[2024-06-24] MEDS: SODIUM CHLORIDE 0.9% 1000 ML 1,000 ML 150 ML IV ×2 (07:41→14:32)
--- NOTE | 2024-06-24 13:27 | XR_ITS ---
Examination: Venous duplex upper extremity sonogram, bilateral. Date and time of exam: June 24, 2024 1640 hrs. Indications: Arm swelling and pain beginning 3 days ago Technique: Multiple sonographic images of the deep venous system have been obtained. B-mode/2-D grayscale imaging of vascular structures and Doppler spectral analysis (waveforms) and color performed Both legs are examined. Findings: Deep venous systems do not demonstrate abnormal echogenicity. No diagnostic visualization right subclavian vein, bandage All visualized deep veins exhibit compressibility. All visualized deep veins exhibit augmentation. Impression: Negative for deep vein thrombosis
[2024-06-24] MEDS: FAMOTIDINE 20 MG TABLET PO (14:32)
[2024-06-24] MEDS: PIPER/TAZO 3.375 GM PREMIX 3.375 GM/50 ML BAG IV ×2 (14:32→21:35)
[2024-06-24] MEDS: SENNA TABLET 1 TAB PO (14:32)
--- NOTE | 2024-06-24 14:52 | ESCONSULT_ITS ---
RE: WILL JEFFERY : 1970 DATE OF CONSULTATION: 06/24/2024 CHIEF COMPLAINT: 1. Neurogenic bladder, status post placement of the suprapubic cystostomy tube at [facility]. 2. Right ureteral stone, status post laser stone fragmentation and placement of ureteral stent at [facility] done 2 days ago. HISTORY OF PRESENT ILLNESS: This is a 53-year-old gentleman. This patient has a comorbid condition of: 1. Left-sided hemorrhagic stroke, status post partial lobectomy. 2. Aphasia. 3. Paraplegia. 4. Neurogenic bladder. 5. Urinary retention, status post placement of suprapubic cystostomy tube. 6. Seizure disorder. 7. Recurrent urinary tract infection. This gentleman has replacement of suprapubic cystostomy tube at [facility]. This morning, the patient came to the emergency room with a history of fever and no nausea or vomiting. No gross hematuria. The patient has Murcia catheter. He also has a suprapubic cystostomy tube. He had recent history of encephalitis 08/05/2023 and herpes zoster ophthalmicus recently was discharged from the hospital Past medical history, family history, review of the systems, personal history, please refer to the patient's history form dated, 06/24/2024. It is in HPI, in EMR. Review of the system all systems reviewed and negative except as documented Narrative examination constitutional awake and alert HEENT vision grossly intact PHYSICAL EXAMINATION: GENERAL: Condition is satisfactory. He has tachycardia pulse rate of 115 temperature of 102.7 labs do not show any leukocytosis, orientation, the patient is not able to express himself as a result of aphasia. The history and physical examination is done in the presence of his . The patient has a history of anxiety. The patient had CAT scan of the abdomen and pelvis done today. It was reviewed by me. This revealed a stent on the right side in a good position. Suprapubic cystostomy is in the bladder. The patient had CBC, CMP, . He also has urine for culture and sensitivity sent. I called the lab and got the lab results WBC is 7.5, hemoglobin is 10.3, serum sodium is 137, potassium 3.8, BUN is 25, creatinine is 1.1 urine culture is pending RECOMMENDATIONS: 1. Continue with catheter drainage. 2. The Murcia catheter will be removed by or visiting nurse in 3 days' time. 3. He has a followup appointment with urologist at [facility]. The patient should be treated with IV antibiotics according to the urine culture and sensitivity and I will follow up the patient in outpatient setting. He will see attending at [facility] in a month time thank you DT: 10:59:52 TT: 14:51:00 Ref: [id number] - TID: [id number] MTDD
--- NOTE | 2024-06-24 15:11 | PD.RESHP ---
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 Recent recurrent diagnosis of bilateral renal calculi with right hydronephrosis in May 2024 which required stent placement in May by Dr. Alexander ([place]) and [facility] then procceeded with lithotripsy and additiion of supra-pubic catheter. Patient presented from home with chieft complain chills and pyrexia 101.4. Patient stated that chills jaun shortly after supra-pubic procedure 3 days ago. Patient deneid any recent sick contacts. Deneid supr-pubic tenderness. Single episode of hematuraia shortly after supra-pubic catheter was added. Patient denied any pain with deep palpation to site. Pateint last bowel movement on Saturday, but continueds to pass gas. Admitted on 06/24/2024 for sepsis with complicated urinary tract infection given multiple history of renal calculi and 2 to 6 mm right urteral clculi noted on CT abdomen/Pelvis (06/24/2024). ER Course: Upon arrival to the emergency room patient's vital indicated tachycardia with a pulse of 133, pyrexia with fever 102.8 and elevated WBC count of 12.5. Patient noted to have anemia with hemoglobin of 7.1 and hematocrit of 22.1 which is slightly lower than patient's baseline, but may be secondary to recent procedure. UA noted to be turbid, +3 blood, RBCs 552, WBC count of 946, positive esterase with bacteria noted in the UA. Blood culture and urine culture obtained in the ER. Chest x-ray showed no pneumonia. CT abdomen pelvis showed right ureteral stent with multiple 2 to 6 mm right ureteral calculi and no significant hydronephrosis. PMH: see above Past Surgical History: AKA over 20 years ago secondary to osteo Home Medication: -Atorvastatin 20 mg -Midodrine 10 mg, hold if Systolic BP >120 -Flomax -Ropinerol 1 mg PM -Duloxetine 30 mg PM -Lyrica 75 mg BID -Pepcide 20 mg Social History: Never smoker never alcohol use Allergies: None Code Status: Full code Review of Systems Review of Systems Narrative Review of Systems: General appearance: NO weight change, NO fatigue, NO weakness, YES fever, YES chills, NO night sweats, No cough Skin: NO rash, NO itching, NO sores, NO moles HEENT: NO Trauma, NO nausea, NO vomiting, NO visual changes, NO blurry vision, NO double vision, NO tinnitus, NO vertigo, NO ear discharge, NO rhinorrhea, NO stuffiness, NO sneezing, NO allergy, NO epistaxis. NO Hoarseness, NO sore throat, NO swollen neck. Cardiac: NO Palpitations, NO dyspnea on exertion, NO orthopnea, NO paroxysmal nocturnal dyspnea, NO edema Respiratory: NO Shortness of Breath, NO Wheezing, NO Cough, NO Sputum, NO hemoptysis GI:NO appetite, NO nausea, NO vomiting, NO dysphagia, NO changes in bowel frequency, NO stool color, NO diarrhea, NO constipation, NO hemetemesis, NO hemorrhoids, NO melena, NO hematechezia, NO abdominal pain, NO jaundice Renal: NO frequency, NO hesitancy, NO urgency, NO hematuria, NO nocturia, NO incontinence MSK: NO muscle weakness, NO gout, NO arthritis, NO muscle stiffness Neuro: NO headaches, NO tremors, NO weakness, NO paralysis, history seizures, NO loss of consciousness, NO numbness. history of CVA Hem: NO anemia, NO easy bruising/bleeding, NO petechiae, NO purpura Endo: NO heat/cold intolerance, NO excessive sweating, NO polyuria, NO polydipsia, NO polyphagia, NO thyroid problems, NO diabetes Pysch: NO mood, NO anxiety, NO depression Exam Vital Signs Temp Pulse Resp BP Pulse Ox O2 Del Method 98.4 F 105 H 17 111/79 97 Room Air 06/24/24 10:11 06/24/24 14:48 06/24/24 10:11 06/24/24 10:11 06/24/24 10:11 06/24/24 10:11 Narrative Exam General Appearance: Alert & Oriented X2, well-nourished male who is lying in bed in no acute distress HEENT: Skull symmetrical and atraumatic. Conjunctivae pin and moist. Pupils equal, round, reactive to light and accommodation (PERRL). External ear without lesion or discharge. Straight, nares patient, mucosa pink, no discharge. No thyroid nodule appreciated. No cervical lymphadenopathy. Cardio: Normal Rate and Rhythm with S1 and S2 heart sounds. No murmurs or extra heart sounds auscultated. No bruits on carotid auscultation. No peripheral edema or cyanosis. Lungs: Symmetric with good expansion. Chest and back non-tender. Breath sounds vesicular without crackles, wheezing or rhonchi Abdomen: mild tender, Non-distended, Normal Reactive Bowel Sounds, supra pubic region non distended non rigid. Neuro: Alert, cooperative, oriented to person, place, and time. Speech clear. CN grossly intact. Upper motor strength 5/5 and Lower motor strength 5/5. Sensation intact. Results: Labs 06/25/24 04:55 06/25/24 04:55 Labs: Short CBC 06/23/24 06/24/24 Range/Units 23:31 02:19 WBC 12.5 H 7.8 (3.8-10.6) Thou/mm3 Hgb 7.1 L 9.8 L D (13.5-16.0) g/dL Hct 22.1 L 30.8 L (41.0-53.0) % Plt Count 202 135 L D (140-440) Thou/mm3 BMP 06/23/24 23:31 Sodium 145 Potassium 3.8 Chloride 110 H Carbon Dioxide 27.6 BUN 20 Creatinine 1.1 Glucose 152 H Calcium 9.0 Cardiac Enzymes 06/23/24 Range/Units 23:31 Troponin I < 0.020 (0.0-0.045) ng/mL Liver Function 06/23/24 Range/Units 23:31 Total Bilirubin 0.3 (0.3-1.2) mg/dL AST 12 (0-34) U/L ALT 15 (10-49) U/L Alkaline Phosphatase 88 (46-116) U/L Albumin 3.9 (3.5-5.0) gm/dL Urine 06/23/24 Range/Units 23:43 Urine Color Yellow (Lt Yel-Yel) Urine Clarity Turbid A (Clear/Hazy) Urine pH 6.5 (5.0-7.0) Ur Specific Fletcher 1.023 (1.001-1.035) Urine Protein 2+ A (Neg - Trace) Urine Glucose (UA) Negative (Negative) Quality Measures Quality Measures none Medications Home Medications and Allergies Home Medications ?Medication ?Instructions ?Recorded ?Confirmed ?Type atorvastatin 20 mg tablet 20 mg PO QDAY 12/26/21 05/22/24 History duloxetine 30 mg capsule,delayed 60 mg PO QPM 12/26/21 05/22/24 History release pregabalin 75 mg capsule 75 mg PO BID 12/26/21 05/22/24 History diazepam 5 mg tablet (Valium) 5 mg PO PRN PRN Anxiety 09/24/22 05/22/24 History eslicarbazepine 800 mg tablet 800 mg PO HS 07/24/23 05/22/24 History (Aptiom) hydrocodone 5 mg-acetaminophen 325 1 tab PO Q6H PRN Pain 07/24/23 05/22/24 History mg tablet midodrine 10 mg tablet 10 mg PO BID 07/31/23 05/22/24 History ropinirole 1 mg tablet 1 mg PO QPM 07/31/23 05/22/24 History promethazine-DM 6.25 mg-15 mg/5 mL 5 ml PO [id number] PRN Cough 08/26/23 05/22/24 History oral syrup Allergies Allergy/AdvReac Type Severity Reaction Status Date / Time No Known Allergies Allergy Verified 05/22/24 10:40 Visit Medications Acetaminophen (Acetaminophen 325 Mg Tablet) 650 mg PO Q6H PRN PRN Reason: Mild Pain 1-3 or Fever >100.3 Stop: 07/24/24 13:21 Atorvastatin Calcium (Atorvastatin Calcium 20 Mg Tablet) 20 mg PO HS ANTONIO Stop: 07/24/24 20:59 Diazepam (Diazepam 5 Mg Tablet) 5 mg PO QD PRN PRN Reason: Anxiety Stop: 06/29/24 13:28 Duloxetine HCl (Duloxetine Hcl 30 Mg Capsule) 30 mg PO QPM ANTONIO Stop: 07/24/24 20:59 Famotidine (Famotidine 20 Mg Tablet) 20 mg PO QDAY ANTONIO Stop: 07/24/24 13:29 Last Admin: 06/24/24 14:32 Dose: 20 mg Heparin Sodium (Porcine) (Heparin Sod Inj 5000 Unit/Ml Vial) 5,000 unit SC Q12HR ANTONIO Stop: 07/08/24 20:59 Sodium Chloride (Ns) 1,000 mls @ 150 mls/hr IV .Q6H40M [facility] Stop: 07/24/24 06:43 Last Admin: 06/24/24 14:32 Dose: 150 mls/hr Piperacillin/Tazobactam/Dextrose (Zosyn) 3.375 gm in 50 mls @ 12.5 mls/hr IV Q8HR [facility] Stop: 07/01/24 13:32 Last Admin: 06/24/24 14:32 Dose: 12.5 mls/hr Lactulose (Lactulose Syrup 20 Gm/30 Ml Udc) 10 gm PO QDAY [facility]; Protocol Stop: 07/25/24 08:59 Midodrine (Midodrine 5 Mg Tablet) 10 mg PO BID [facility] Stop: 07/24/24 20:59 Home Medication- Please Speak With Patient Caregiver To Have Rx Brought To [facility] 800 mg PO HS [facility] Stop: 07/24/24 20:59 Ondansetron HCl (Ondansetron Inj 2 Mg/Ml Inj 2 Ml) 4 mg IV Q6H PRN; Protocol PRN Reason: NAUSEA OR VOMITING Stop: 07/24/24 13:21 Pregabalin (Pregabalin 75 Mg Capsule) 75 mg PO BID [facility] Stop: 07/24/24 20:59 Ropinirole HCl (Ropinirole Hcl 1 Mg Tablet) 1 mg PO QPM [facility] Stop: 07/24/24 20:59 Sennosides (Senna Tablet) 1 tab PO QDAY [facility]; Protocol Stop: 07/24/24 13:29 Last Admin: 06/24/24 14:32 Dose: 1 tab Tamsulosin HCl (Tamsulosin Hcl 0.4 Mg Capsule) 0.4 mg PO QDAY [facility] Stop: 07/25/24 08:59 Discontinued Medications Hydromorphone HCl (Hydromorphone Inj 2 Mg/Ml Vial) 0.5 mg IVP X1 ONE Stop: 06/24/24 02:12 Last Admin: 06/24/24 03:35 Dose: 0.5 mg Hydromorphone HCl (Hydromorphone Inj 2 Mg/Ml Vial) 0.5 mg IVP X1 ONE Stop: 06/24/24 07:49 Last Admin: 06/24/24 08:16 Dose: 0.5 mg Acetaminophen (Ofirmev Inj) 1,000 mg in 100 mls @ 250 mls/hr IV Q6HR ANTONIO Stop: 06/24/24 12:23 Last Infusion: 06/24/24 01:40 Dose: Infused Piperacillin/Tazobactam/Dextrose (Zosyn) 3.375 gm in 50 mls @ 100 mls/hr IV X1 ONE Stop: 06/23/24 23:19 Last Infusion: 06/24/24 00:43 Dose: Infused Doxycycline Hyclate 100 mg/ (Sodium Chloride) 100 mls @ 100 mls/hr IV X1 ONE Stop: 06/23/24 23:49 Last Infusion: 06/24/24 03:37 Dose: Infused Sodium Chloride (Ns) 1,000 mls @ 999 mls/hr IV .Q1H1M ONE Stop: 06/23/24 23:51 Last Infusion: 06/24/24 01:40 Dose: Infused Ondansetron HCl (Ondansetron Inj 2 Mg/Ml Inj 2 Ml) 4 mg IV X1 ONE; Protocol Stop: 06/24/24 02:12 Last Admin: 06/24/24 03:34 Dose: 4 mg Assessment & Plan Plan Patient is a 53-year-old male with a past medical history of hypotension (on midodrine), hyperlipidemia, CVA-hemorrhagic, s/p parietal lobectomy w/ L-paraplegia nuerogenic bladder, aphasia, and BPH, history and AKA left lower extremity who was admitted on 06/24/2024 for sepsis secondary to complicaed UTI and renal calculi s/p lithotripsy w/ no signfiicant hydronephrosis of right kidney. #Sepsis secondary to complicated urinary tract infection #Complicated urinary tract infection status post lithotripsy #Luekocytosis #Renal calculi, no significant hydronephrosis #Neurogenic bladder, chronic indwelling Murcia catheter On admission, patient met SIRS criteria given tachycardia 133, pyrexia with a 102.8, soft blood pressure in the ER prior to admission of 95/65 with a qSOFA score of 2. WBC count of 12.5 with likely source of complicated urinary tract infection given recurrent urinary stones and previous stents placed. Previous urine cultures for patient grew Pseudomonas aeruginosa that is resistant to several antibiotics but piperacillin tazobactam still sensitive based on urine cultures from June 11, 2024. Urology consulted. On imaging CT pelvis noted for right ureteral stent in satisfactory position, with multiple 2 to 6 mm renal calculi at the right kidney and no significant hydronephrosis. Given patient's recent procedure other sources of infection cannot be ruled out such as suprapubic catheter being source of infection versus Murcia catheter (which was changed upon arrival to the emergency room). 1 L bolus given in ER. Procal and lactic acid negative Plan - Zosyn 3.375 every 8 hours (06/24/2024) -Flomax -Consider bolus if patient appears septic -Blood cultures pending -Urine cultures pending -TSH pending - Pain management: Tylenol, [place], morphine #History of CVA status post partial lumpectomy #Status post paraplegia Resume home medication of atorvastatin 20 mg once daily Plan: -atorvastatin 20 mg p.o. -Resume home medication of pregabalin, diazepam, duloxetine ?Ropinirole - Lipid panel a.m. #History of hypotension, likely secondary to CVA Please continue to give monitor blood pressure and resume home medication of midodrine 10 mg p.o. twice daily Plan -Resume midodrine 10 mg p.o. twice daily #History of seizures Past medical history of seizure with Aptiom at home medication 800 mg p.o. at bedtime. Plan -Seizure precautions - Aptiom 800 mg p.o. at bedtime - Consider Ativan for breakthrough seizures #Right upper extremity edema Right upper extremity edema likely secondary to venous stasis given decrease upper motor strength status post CVA versus increased fluid given in ER versus DVT. Maintenance fluids stopped as it was started by ER at a rate of 150 cc/h likely contributing to right upper extremity edema. Plan ? Ultrasound venous Doppler -Stopped maintenance fluid patient is not n.p.o., is able to consume a cardiac diet, encourage oral hydration #History of BPH Continue home medication of Flomax #Anemia of Chronic Disease no acute intervention, continue to monitor hgb and hct #Constipation plan -Senna -Lactulose Health Maintenance: Disp: Pt is currently admitted to floors for further management of sepsis secondary to complicated UTI and blood/ urine cultures. FEN: Cardiac Diet DVT: on subQ heparin Code: Full code - The patient's plan was discussed with attending Dr. Greg Banks MD PGY1 Internal Medicine Attending Provider Attestation/Addendum I reviewed labs, imaging, EKG, home medications and prior available records. Face to face evaluation was performed by me. I have personally examined the patient and discussed assessment and plan with the IM team. I reviewed the resident note and agree with the plan with exceptions as below. Sepsis secondary to acute UTI History of recurrent UTIs Neurogenic bladder status post suprapubic catheter History of renal stones status post removal Nephrolithiasis status post stenting CVA with aphasia and left-sided residual weakness Started IV Zosyn. Sent blood and urine cultures Consulted urology Trend WBC
[2024-06-24] MEDS: HYDROcodone/APAP 5/325 TABLET 1 TAB PO ×2 (15:42→21:51)
[2024-06-24] MEDS: ATORVASTATIN CALCIUM 20 MG TABLET PO (21:30)
[2024-06-24] MEDS: DULoxetine HCL 30 MG CAPSULE PO (21:30)
[2024-06-24] MEDS: rOPINIRole HCL 1 MG TABLET PO (21:30)
[2024-06-24] MEDS: PREGABALIN 75 MG CAPSULE PO (21:30)
[2024-06-24] MEDS: HEPARIN SOD INJ 5000 UNIT/ML VIAL SC (21:35)
[2024-06-25] VITALS (12 sets, daily range): BP systolic 99–153; BP diastolic 57–81; PULSE 66–694; RESP 15–19; TEMP 36–36.6; O2SAT 95–100
[2024-06-25] MEDS: HYDROmorphone INJ 2 MG/ML VIAL 0.5 MG IVP (05:12)
[2024-06-25] MEDS: PIPER/TAZO 3.375 GM PREMIX 3.375 GM/50 ML BAG IV ×3 (05:13→23:32)
[2024-06-25 05:59] LABS: Basophils % (Auto) 1 % (0-2.5); Eosinophils # (Auto) 0.2 Thou/mm3 (0.0-0.5); Eosinophils % (Auto) 3 % (0-10); Hematocrit 31.2 % (41.0-53.0); Hemoglobin 9.5 g/dL (13.5-16.0); Immature Granulocytes % (Auto) 1 % (0-0); Immature Granulocytes Auto 0.03 Thou/mm3 (0.00-0.00); Lymphocytes # (Auto) 1.6 Thou/mm3 (1.0-4.8); Lymphocytes % (Auto) 31 % (10-50); Mean Corpuscular HGB Conc 30.4 g/dl (31.0-37.0); Mean Corpuscular Hemoglobin 24.2 pg (25.0-35.0); Mean Corpuscular Volume 80 fL (80-100); Monocytes # (Auto) 0.5 Thou/mm3 (0.0-0.8); Monocytes % (Auto) 10 % (0-12); Neutrophils # (Auto) 2.9 Thou/mm3 (1.8-7.7); Neutrophils % (Auto) 55 % (37-80); Nucleated Red Blood Cell % 0 /100 WBC (0); Platelet Count 134 Thou/mm3 (140-440); RDW Standard Deviation 41.1 fL (35.1-43.9); Red Blood Count 3.92 Miln/mm3 (4.50-5.90); White Blood Count 5.2 Thou/mm3 (3.8-10.6)
[2024-06-25 06:29] LABS: Alanine Aminotransferase 19 U/L (10-49); Albumin, Serum 3.3 gm/dL (3.5-5.0); Albumin/Globulin Ratio 1.4 (1.2-2.2); Alkaline Phosphatase 67 U/L (46-116); Anion Gap 4 (7-16); Aspartate Amino Transferase 20 U/L (0-34); BUN/Creatinine Ratio 19 Ratio (12-20); Bilirubin,Total 0.4 mg/dL (0.3-1.2); Blood Urea Nitrogen 15 mg/dL (9-23); Calcium 8.8 mg/dL (8.3-10.6); Calcium (Corrected) 9.4 mg/dL (8.5-10.1); Carbon Dioxide 29.8 mMol/L (20.0-31.0); Cardiac Risk Estimate 2.8 RATIO (4.0-6.7); Chloride 109 mMol/L (98-107); Cholesterol 101 mg/dL (132-200); Creatinine (Component) 0.8 mg/dL (0.6-1.3); Estimated Creatinine Clearance 136.2 mL/min (>60); Globulin 2.3 gm/dL (2.3-3.5); Glucose 121 mg/dL (74-106); HDL Cholesterol 36 mg/dL (40-60); LDL Cholesterol,Calculated 49 mg/dL (0-130); Magnesium 1.6 mg/dL (1.6-2.6); Osmolality,Calculated 286 (275-295); Phosphorous 3.2 mg/dL (2.4-5.1); Potassium 3.6 mMol/L (3.4-5.1); Sodium 143 mMol/L (136-145); Thyroid Stimulating Hormone 0.48 uIU/mL (0.55-4.78); Total Protein 5.6 gm/dL (5.7-8.2); Triglycerides 81 mg/dL (30-150); eGFR > 60 See Note
[2024-06-25] MEDS: MIDODRINE 5 MG TABLET 10 MG PO ×2 (09:28→20:53)
[2024-06-25] MEDS: PREGABALIN 75 MG CAPSULE PO ×2 (09:28→20:54)
[2024-06-25] MEDS: TAMSULOSIN HCL 0.4 MG CAPSULE PO (09:28)
[2024-06-25] MEDS: SENNA TABLET 1 TAB PO (09:28)
[2024-06-25] MEDS: FAMOTIDINE 20 MG TABLET PO (09:28)
[2024-06-25] MEDS: LACTULOSE SYRUP 20 GM/30 ML UDC 10 GM PO (09:29)
[2024-06-25] MEDS: HEPARIN SOD INJ 5000 UNIT/ML VIAL SC ×2 (09:29→20:58)
[2024-06-25 09:54] LABS: Free T4 (Free Thyroxine) 0.89 ng/dL (0.89-1.76)
[2024-06-25] MEDS: Vancomycin Inj 1,500 MG in SODIUM CHLORIDE 0.9% 500 ML 500 ML 200 MG IV ×2 (10:51→21:01)
[2024-06-25] MEDS: POTASSIUM CHLORIDE 10% 20 MEQ/15 ML UDC PO (10:52)
[2024-06-25] MEDS: Magnesium Sulfate 2 GM Ivpb 2 GM/50 ML BAG IV (13:00)
[2024-06-25] MEDS: DiphenhydrAMINE ELIX 25 MG/10 ML UDC 12.5 MG PO (13:57)
--- NOTE | 2024-06-25 15:55 | PD.RESPRO ---
Documentation for date of: 06/25/24 Subjective Subjective Interval history: Overnight events reported for patient. Patient continues to be at baseline, alert and oriented x 2. Denied chills or pyrexia overnight. Patient denied abdominal tenderness. No discharge noted from suprapubic catheter. Patient still has indwelling [place] catheter, to be removed on June 26, 2024 by . Patient still producing urine -1030 not. No bowel movement despite starting patient on a regimen with senna and lactulose. 1 out of 2 blood cultures growing GPC, vancomycin started, and repeat blood cultures. Exam Vital Signs Temp Pulse Resp BP Pulse Ox O2 Del Method 97.4 F 71 17 116/75 98 Room Air 06/25/24 12:00 06/25/24 15:30 06/25/24 12:00 06/25/24 12:00 06/25/24 12:00 06/25/24 07:34 Narrative Exam General Appearance: Alert & Oriented X2, well-nourished male who is lying in bed in no acute distress HEENT: Skull symmetrical and atraumatic. Conjunctivae pin and moist. Pupils equal, round, reactive to light and accommodation (PERRL). External ear without lesion or discharge. Straight, nares patient, mucosa pink, no discharge. No thyroid nodule appreciated. No cervical lymphadenopathy. Cardio: Normal Rate and Rhythm with S1 and S2 heart sounds. No murmurs or extra heart sounds auscultated. No bruits on carotid auscultation. No peripheral edema or cyanosis. Lungs: Symmetric with good expansion. Chest and back non-tender. Breath sounds vesicular without crackles, wheezing or rhonchi Abdomen: mild tender, Non-distended, Normal Reactive Bowel Sounds, supra pubic region non distended non rigid. Neuro: Alert, cooperative, oriented to person, place, and time. Speech clear. CN grossly intact. Upper motor strength 5/5 and Lower motor strength 5/5. Sensation intact. Objective Labs 06/25/24 04:55 06/25/24 04:55 Labs: Laboratory Results - last 24 hr 06/25/24 04:55 WBC 5.2 RBC 3.92 L Hgb 9.5 L Hct 31.2 L MCV 80 MCH 24.2 L MCHC 30.4 L RDW Std Deviation 41.1 Plt Count 134 L Neut % (Auto) 55 Lymph % (Auto) 31 [place] % (Auto) 10 Eos % (Auto) 3 Baso % (Auto) 1 Neut # (Auto) 2.9 Lymph # (Auto) 1.6 [place] # (Auto) 0.5 Eos # (Auto) 0.2 Baso # (Auto) 0.0 Immature Gran # (Auto) 0.03 H Absolute Nucleated RBC 0.00 Immature Gran % 1 H Nucleated RBC % 0 Sodium 143 Potassium 3.6 Chloride 109 H Carbon Dioxide 29.8 Anion Gap 4 L BUN 15 Creatinine 0.8 Estim Creat Clear Calc 136.2 eGFR > 60 BUN/Creatinine Ratio 19 Glucose 121 H Calculated Osmolality 286 Calcium 8.8 Corrected Calcium 9.4 Phosphorus 3.2 Magnesium 1.6 Total Bilirubin 0.4 AST 20 ALT 19 Alkaline Phosphatase 67 D Total Protein 5.6 L Albumin 3.3 L D Globulin 2.3 Albumin/Globulin Ratio 1.4 Triglycerides 81 Cholesterol 101 L LDL Cholesterol, Calc 49 HDL Cholesterol 36 L Cholesterol/HDL Ratio 2.8 L TSH 0.48 L Free T4 0.89 Quality Measures Quality Measures none Assessment & Plan Assessment Current Active Medications: Generic Name Dose Route Start Last Admin Trade Name Freq PRN Reason Stop Dose Admin Acetaminophen 650 mg 06/24/24 13:22 Acetaminophen 325 Mg Tablet PO 07/24/24 13:21 Q6H PRN Mild Pain 1-3 or Fever >100.3 Hydrocodone Bitart/Acetaminophen 1 tab 06/24/24 15:27 06/24/24 21:51 Hydrocodone/Apap 5/325 Tablet PO 06/29/24 15:26 1 tab Q4HR PRN Administration PAIN SCALE 4-6 (Moderate Atorvastatin Calcium 20 mg 06/24/24 21:00 06/24/24 21:30 Atorvastatin Calcium 20 Mg Tablet PO 07/24/24 20:59 20 mg HS ANTONIO Administration Aptiom ( 0 ea 06/25/24 21:00 Eslicarbazepine) 800 PO 07/25/24 20:59 Mg HS ANTONIO Diazepam 5 mg 06/24/24 13:29 Diazepam 5 Mg Tablet PO 06/29/24 13:28 QD PRN Anxiety Duloxetine HCl 30 mg 06/24/24 21:00 06/24/24 21:30 Duloxetine Hcl 30 Mg Capsule PO 07/24/24 20:59 30 mg QPM ANTONIO Administration Famotidine 20 mg 06/24/24 13:30 06/25/24 09:28 Famotidine 20 Mg Tablet PO 07/24/24 13:29 20 mg QDAY ANTONIO Administration Heparin Sodium (Porcine) 5,000 unit 06/24/24 21:00 06/25/24 09:29 Heparin Sod Inj 5000 Unit/Ml Vial SC 07/08/24 20:59 5,000 unit Q12HR ANTONIO Administration Hydromorphone HCl 0.5 mg 06/24/24 15:27 06/25/24 05:12 Hydromorphone Inj 2 Mg/Ml Vial IVP 06/29/24 15:26 0.5 mg Q4HR PRN Administration PAIN SCALE 7-10 (Severe Piperacillin/Tazobactam/Dextrose 3.375 gm in 50 mls @ 12.5 mls/hr 06/24/24 13:33 06/25/24 15:01 Zosyn IV 07/01/24 13:32 12.5 mls/hr Q8HR ANTONIO Administration Vancomycin HCl 1,500 mg/ 500 mls @ 200 mls/hr 06/25/24 10:00 06/25/24 10:51 Sodium Chloride IV 07/02/24 09:59 200 mls/hr Q12H ANTONIO Administration Lactulose 10 gm 06/25/24 09:00 06/25/24 09:29 Lactulose Syrup 20 Gm/30 Ml Udc PO 07/25/24 08:59 10 gm QDAY ANTONIO Administration Protocol Midodrine 10 mg 06/24/24 21:00 06/25/24 09:28 Midodrine 5 Mg Tablet PO 07/24/24 20:59 10 mg BID ANTONIO Administration Ondansetron HCl 4 mg 06/24/24 13:22 Ondansetron Inj 2 Mg/Ml Inj 2 Ml IV 07/24/24 13:21 Q6H PRN NAUSEA OR VOMITING Protocol Pharmacy Consult 1 each 06/25/24 09:00 Vancomycin Pharmacy To Dose 1 Each Each IV 07/25/24 08:59 QDAY PRN RX Pregabalin 75 mg 06/24/24 21:00 06/25/24 09:28 Pregabalin 75 Mg Capsule PO 07/24/24 20:59 75 mg BID ANTONIO Administration Ropinirole HCl 1 mg 06/24/24 21:00 06/24/24 21:30 Ropinirole Hcl 1 Mg Tablet PO 07/24/24 20:59 1 mg QPM ANTONIO Administration Sennosides 1 tab 06/24/24 13:30 06/25/24 09:28 Senna Tablet PO 07/24/24 13:29 1 tab QDAY ANTONIO Administration Protocol Tamsulosin HCl 0.4 mg 06/25/24 09:00 06/25/24 09:28 Tamsulosin Hcl 0.4 Mg Capsule PO 07/25/24 08:59 0.4 mg QDAY ANTONIO Administration Plan Patient is a 53-year-old male with a past medical history of hypotension (on midodrine), hyperlipidemia, CVA-hemorrhagic, s/p parietal lobectomy w/ L-paraplegia nuerogenic bladder, aphasia, and BPH, history and AKA left lower extremity who was admitted on 06/24/2024 for sepsis secondary to complicaed UTI and renal calculi s/p lithotripsy w/ no signfiicant hydronephrosis of right kidney. #Sepsis secondary to complicated urinary tract infection #Complicated urinary tract infection status post lithotripsy #Luekocytosis #Renal calculi, no significant hydronephrosis #Neurogenic bladder, chronic indwelling [place] catheter On admission, patient met SIRS criteria given tachycardia 133, pyrexia with a 102.8, soft blood pressure in the ER prior to admission of 95/65 with a qSOFA score of 2. WBC count of 12.5 with likely source of complicated urinary tract infection given recurrent urinary stones and previous stents placed. Previous urine cultures for patient grew Pseudomonas aeruginosa that is resistant to several antibiotics but piperacillin tazobactam still sensitive based on urine cultures from June 11, 2024. Urology consulted. On imaging CT pelvis noted for right ureteral stent in satisfactory position, with multiple 2 to 6 mm renal calculi at the right kidney and no significant hydronephrosis. Given patient's recent procedure other sources of infection cannot be ruled out such as suprapubic catheter being source of infection versus Murcia catheter (which was changed upon arrival to the emergency room). 1 L bolus given in ER. Procal and lactic acid negative Plan - Zosyn 3.375 every 8 hours (06/24/2024) -Vancomycin (06/26/2023--) -Flomax -Consider bolus if patient appears septic -1/2 Blood cultures GPC, repeat -Urine cultures pending - Pain management: Tylenol, [place], morphine #History of CVA status post partial lumpectomy #Status post paraplegia Resume home medication of atorvastatin 20 mg once daily. Lipid: Cholesterol 101, LDL 49, HDL 36, Plan: -atorvastatin 20 mg p.o. -Resume home medication of pregabalin, diazepam, duloxetine ?Ropinirole #History of hypotension, likely secondary to CVA Please continue to give monitor blood pressure and resume home medication of midodrine 10 mg p.o. twice daily Plan -Resume midodrine 10 mg p.o. twice daily #History of seizures Past medical history of seizure with Aptiom at home medication 800 mg p.o. at bedtime. Plan -Seizure precautions - Aptiom 800 mg p.o. at bedtime - Consider Ativan for breakthrough seizures #Right upper extremity edema, improved Right upper extremity edema likely secondary to venous stasis given decrease upper motor strength status post CVA versus increased fluid given in ER versus DVT. Maintenance fluids stopped as it was started by ER at a rate of 150 cc/h likely contributing to right upper extremity edema. Venous doppler US, negative for DVT. Plan -Stopped maintenance fluid patient is not n.p.o., is able to consume a cardiac diet, encourage oral hydration #History of BPH Continue home medication of Flomax #Anemia of Chronic Disease no acute intervention, continue to monitor hgb and hct #Constipation plan -Senna -Lactulose Health Maintenance: Disp: Pt is currently admitted to floors for further management of sepsis secondary to complicated UTI and blood/ urine cultures. FEN: Cardiac Diet DVT: on subQ heparin Code: Full code The patient's plan was discussed with attending Dr. Greg Banks MD PGY1 Internal Medicine Attending Provider Attestation/Addendum I reviewed labs, imaging, EKG, home medications and prior available records. Face to face evaluation was performed by me. I have personally examined the patient and discussed assessment and plan with the IM team. I reviewed the resident note and agree with the plan with exceptions as below. Sepsis secondary to acute UTI History of recurrent UTIs Neurogenic bladder status post suprapubic catheter History of renal stones status post removal Nephrolithiasis status post stenting CVA with aphasia and left-sided residual weakness Started IV Zosyn. Sent blood and urine cultures: Blood cultures are growing gram-positive cocci. Added vancomycin. Repeated blood culture Consulted urology: Recommended to continue IV antibiotics. Remove Murcia catheter in 3 days Trend WBC: Downtrending
[2024-06-25] MEDS: rOPINIRole HCL 1 MG TABLET PO (20:53)
[2024-06-25] MEDS: ATORVASTATIN CALCIUM 20 MG TABLET PO (20:53)
[2024-06-25] MEDS: DULoxetine HCL 30 MG CAPSULE PO (20:53)
[2024-06-25] MEDS: HYDROcodone/APAP 5/325 TABLET 1 TAB PO (20:53)
[2024-06-26] VITALS (12 sets, daily range): BP systolic 98–117; BP diastolic 59–73; PULSE 56–74; RESP 15–19; TEMP 36.1–36.8; O2SAT 97–99
[2024-06-26] MEDS: HYDROcodone/APAP 5/325 TABLET 1 TAB PO ×2 (03:04→21:00)
[2024-06-26 06:11] LABS: Basophils % (Auto) 1 % (0-2.5); Eosinophils # (Auto) 0.3 Thou/mm3 (0.0-0.5); Eosinophils % (Auto) 8 % (0-10); Hematocrit 29.6 % (41.0-53.0); Hemoglobin 9.4 g/dL (13.5-16.0); Immature Granulocytes % (Auto) 1 % (0-0); Immature Granulocytes Auto 0.03 Thou/mm3 (0.00-0.00); Lymphocytes # (Auto) 1.6 Thou/mm3 (1.0-4.8); Lymphocytes % (Auto) 38 % (10-50); Mean Corpuscular HGB Conc 31.8 g/dl (31.0-37.0); Mean Corpuscular Hemoglobin 24.9 pg (25.0-35.0); Mean Corpuscular Volume 79 fL (80-100); Monocytes # (Auto) 0.4 Thou/mm3 (0.0-0.8); Monocytes % (Auto) 9 % (0-12); Neutrophils # (Auto) 1.9 Thou/mm3 (1.8-7.7); Neutrophils % (Auto) 45 % (37-80); Nucleated Red Blood Cell % 0 /100 WBC (0); Platelet Count 150 Thou/mm3 (140-440); RDW Standard Deviation 40.7 fL (35.1-43.9); Red Blood Count 3.77 Miln/mm3 (4.50-5.90); White Blood Count 4.3 Thou/mm3 (3.8-10.6)
[2024-06-26] MEDS: PIPER/TAZO 3.375 GM PREMIX 3.375 GM/50 ML BAG IV ×3 (06:16→22:23)
[2024-06-26 06:45] LABS: Alanine Aminotransferase 22 U/L (10-49); Albumin, Serum 3.2 gm/dL (3.5-5.0); Albumin/Globulin Ratio 1.4 (1.2-2.2); Alkaline Phosphatase 64 U/L (46-116); Anion Gap 4 (7-16); Aspartate Amino Transferase 22 U/L (0-34); BUN/Creatinine Ratio 19 Ratio (12-20); Bilirubin,Total 0.4 mg/dL (0.3-1.2); Blood Urea Nitrogen 17 mg/dL (9-23); Calcium 8.4 mg/dL (8.3-10.6); Carbon Dioxide 28.9 mMol/L (20.0-31.0); Chloride 109 mMol/L (98-107); Creatinine (Component) 0.9 mg/dL (0.6-1.3); Estimated Creatinine Clearance 121.1 mL/min (>60); Globulin 2.3 gm/dL (2.3-3.5); Glucose 96 mg/dL (74-106); Magnesium 1.8 mg/dL (1.6-2.6); Osmolality,Calculated 284 (275-295); Phosphorous 3.3 mg/dL (2.4-5.1); Potassium 3.9 mMol/L (3.4-5.1); Sodium 142 mMol/L (136-145); Total Protein 5.5 gm/dL (5.7-8.2); eGFR > 60 See Note
[2024-06-26] MEDS: LACTULOSE SYRUP 20 GM/30 ML UDC 10 GM PO (09:14)
[2024-06-26] MEDS: HEPARIN SOD INJ 5000 UNIT/ML VIAL SC ×2 (09:14→20:32)
[2024-06-26] MEDS: PREGABALIN 75 MG CAPSULE PO ×2 (09:15→20:19)
[2024-06-26] MEDS: SENNA TABLET 1 TAB PO (09:15)
[2024-06-26] MEDS: MIDODRINE 5 MG TABLET 10 MG PO ×2 (09:15→20:19)
[2024-06-26] MEDS: FAMOTIDINE 20 MG TABLET PO (09:15)
[2024-06-26] MEDS: TAMSULOSIN HCL 0.4 MG CAPSULE PO (09:15)
[2024-06-26] MEDS: Vancomycin Inj 1,500 MG in SODIUM CHLORIDE 0.9% 500 ML 500 ML 200 MG IV (10:26)
--- NOTE | 2024-06-26 10:44 | ESPR_ITS ---
Documentation for date of: 06/26/24 Subjective Subjective Interval history: No overnight events. No bowel movement reported for patient. Afebrile overnight. Patient deneid chest pain or dyspnea. Negative for supra-pubic tenderness. Patient denied pain with urination. Continue IV antibiotics for 1/2 blood cultures showing GPC given recent procedure. Exam Vital Signs Temp Pulse Resp BP Pulse Ox O2 Del Method 97 F 58 L 15 105/59 L 99 Room Air 06/26/24 08:00 06/26/24 09:15 06/26/24 08:00 06/26/24 09:15 06/26/24 08:00 06/26/24 08:00 Narrative Exam General Appearance: Alert & Oriented X2, well-nourished male who is lying in bed in no acute distress HEENT: Skull symmetrical and atraumatic. Conjunctivae pin and moist. Pupils equal, round, reactive to light and accommodation (PERRL). External ear without lesion or discharge. Straight, nares patient, mucosa pink, no discharge. No thyroid nodule appreciated. No cervical lymphadenopathy. Cardio: Normal Rate and Rhythm with S1 and S2 heart sounds. No murmurs or extra heart sounds auscultated. No bruits on carotid auscultation. No peripheral edema or cyanosis. Lungs: Symmetric with good expansion. Chest and back non-tender. Breath sounds vesicular without crackles, wheezing or rhonchi Abdomen: mild tender, Non-distended, Normal Reactive Bowel Sounds, supra pubic region non distended non rigid. Neuro: Yes Alert, Yes cooperative, Yes oriented to person, Yes place, and time. Speech clear. CN grossly intact. Upper motor strength 5/5 and Lower motor strength 3/5. Sensation intact. Objective Labs 06/26/24 05:04 06/26/24 05:04 Labs: Laboratory Results - last 24 hr 06/26/24 05:04 WBC 4.3 RBC 3.77 L Hgb 9.4 L Hct 29.6 L MCV 79 L MCH 24.9 L MCHC 31.8 RDW Std Deviation 40.7 Plt Count 150 Neut % (Auto) 45 Lymph % (Auto) 38 [place] % (Auto) 9 Eos % (Auto) 8 Baso % (Auto) 1 Neut # (Auto) 1.9 Lymph # (Auto) 1.6 [place] # (Auto) 0.4 Eos # (Auto) 0.3 Baso # (Auto) 0.0 Immature Gran # (Auto) 0.03 H Absolute Nucleated RBC 0.00 Immature Gran % 1 H Nucleated RBC % 0 Sodium 142 Potassium 3.9 Chloride 109 H Carbon Dioxide 28.9 Anion Gap 4 L BUN 17 Creatinine 0.9 Estim Creat Clear Calc 121.1 eGFR > 60 BUN/Creatinine Ratio 19 Glucose 96 Calculated Osmolality 284 Calcium 8.4 Corrected Calcium 9.0 Phosphorus 3.3 Magnesium 1.8 Total Bilirubin 0.4 AST 22 ALT 22 Alkaline Phosphatase 64 Total Protein 5.5 L Albumin 3.2 L Globulin 2.3 Albumin/Globulin Ratio 1.4 Quality Measures Quality Measures none Assessment & Plan Assessment Current Active Medications: Generic Name Dose Route Start Last Admin Trade Name Freq PRN Reason Stop Dose Admin Acetaminophen 650 mg 06/24/24 13:22 Acetaminophen 325 Mg Tablet PO 07/24/24 13:21 Q6H PRN Mild Pain 1-3 or Fever >100.3 Hydrocodone Bitart/Acetaminophen 1 tab 06/24/24 15:27 06/26/24 03:04 Hydrocodone/Apap 5/325 Tablet PO 06/29/24 15:26 1 tab Q4HR PRN Administration PAIN SCALE 4-6 (Moderate Atorvastatin Calcium 20 mg 06/24/24 21:00 06/25/24 20:53 Atorvastatin Calcium 20 Mg Tablet PO 07/24/24 20:59 20 mg HS ANTONIO Administration Aptiom ( 0 ea 06/25/24 21:00 06/25/24 20:54 Eslicarbazepine) 800 PO 07/25/24 20:59 1 tablet Mg HS ANTONIO Administration Diazepam 5 mg 06/24/24 13:29 Diazepam 5 Mg Tablet PO 06/29/24 13:28 QD PRN Anxiety Duloxetine HCl 30 mg 06/24/24 21:00 06/25/24 20:53 Duloxetine Hcl 30 Mg Capsule PO 07/24/24 20:59 30 mg QPM ANTONIO Administration Famotidine 20 mg 06/24/24 13:30 06/26/24 09:15 Famotidine 20 Mg Tablet PO 07/24/24 13:29 20 mg QDAY ANTONIO Administration Heparin Sodium (Porcine) 5,000 unit 06/24/24 21:00 06/26/24 09:14 Heparin Sod Inj 5000 Unit/Ml Vial SC 07/08/24 20:59 5,000 unit Q12HR ANTONIO Administration Hydromorphone HCl 0.5 mg 06/24/24 15:27 06/25/24 05:12 Hydromorphone Inj 2 Mg/Ml Vial IVP 06/29/24 15:26 0.5 mg Q4HR PRN Administration PAIN SCALE 7-10 (Severe Piperacillin/Tazobactam/Dextrose 3.375 gm in 50 mls @ 12.5 mls/hr 06/24/24 13:33 06/26/24 06:16 Zosyn IV 07/01/24 13:32 12.5 mls/hr Q8HR ANTONIO Administration Vancomycin HCl 1,500 mg/ 500 mls @ 200 mls/hr 06/25/24 10:00 06/26/24 10:26 Sodium Chloride IV 07/02/24 09:59 200 mls/hr Q12H ANTONIO Administration Protocol Lactulose 10 gm 06/25/24 09:00 06/26/24 09:14 Lactulose Syrup 20 Gm/30 Ml Udc PO 07/25/24 08:59 10 gm QDAY ANTONIO Administration Protocol Midodrine 10 mg 06/24/24 21:00 06/26/24 09:15 Midodrine 5 Mg Tablet PO 07/24/24 20:59 10 mg BID ANTONIO Administration Ondansetron HCl 4 mg 06/24/24 13:22 Ondansetron Inj 2 Mg/Ml Inj 2 Ml IV 07/24/24 13:21 Q6H PRN NAUSEA OR VOMITING Protocol Pharmacy Consult 1 each 06/25/24 09:00 Vancomycin Pharmacy To Dose 1 Each Each IV 07/25/24 08:59 QDAY PRN RX Pregabalin 75 mg 06/24/24 21:00 06/26/24 09:15 Pregabalin 75 Mg Capsule PO 07/24/24 20:59 75 mg BID ANTONIO Administration Ropinirole HCl 1 mg 06/24/24 21:00 06/25/24 20:53 Ropinirole Hcl 1 Mg Tablet PO 07/24/24 20:59 1 mg QPM ANTONIO Administration Sennosides 1 tab 06/24/24 13:30 06/26/24 09:15 Senna Tablet PO 07/24/24 13:29 1 tab QDAY ANTONIO Administration Protocol Tamsulosin HCl 0.4 mg 06/25/24 09:00 06/26/24 09:15 Tamsulosin Hcl 0.4 Mg Capsule PO 07/25/24 08:59 0.4 mg QDAY ANTONIO Administration Plan Patient is a 53-year-old male with a past medical history of hypotension (on midodrine), hyperlipidemia, CVA-hemorrhagic, s/p parietal lobectomy w/ L- paraplegia nuerogenic bladder, aphasia, and BPH, history and AKA left lower extremity who was admitted on 06/24/2024 for sepsis secondary to complicaed UTI and renal calculi s/p lithotripsy w/ no signfiicant hydronephrosis of right kidney. #Sepsis secondary to complicated urinary tract infection #Complicated urinary tract infection status post lithotripsy #Luekocytosis #Renal calculi, no significant hydronephrosis #Neurogenic bladder, chronic indwelling [place] catheter On admission, patient met SIRS criteria given tachycardia 133, pyrexia with a 102.8, soft blood pressure in the ER prior to admission of 95/65 with a qSOFA score of 2. WBC count of 12.5 with likely source of complicated urinary tract infection given recurrent urinary stones and previous stents placed. Previous urine cultures for patient grew Pseudomonas aeruginosa that is resistant to several antibiotics but piperacillin tazobactam still sensitive based on urine cultures from June 11, 2024. Urology consulted. On imaging CT pelvis noted for right ureteral stent in satisfactory position, with multiple 2 to 6 mm renal calculi at the right kidney and no significant hydronephrosis. Given patient's recent procedure other sources of infection cannot be ruled out such as suprapubic catheter being source of infection versus [place] catheter (which was changed upon arrival to the emergency room). 1 L bolus given in ER. Procal and lactic acid negative Plan - Zosyn 3.375 every 8 hours (06/24/2024) -Vancomycin (06/26/2023--) -Flomax -Consider bolus if patient appears septic -1/2 Blood cultures Prelim GPC, repeat -Urine cultures Prelim GNR X2, pending final - Pain management: Tylenol, [place], morphine #History of CVA status post partial lumpectomy #Status post paraplegia Resume home medication of atorvastatin 20 mg once daily. Lipid: Cholesterol 101, LDL 49, HDL 36, Plan: -atorvastatin 20 mg p.o. -Resume home medication of pregabalin, diazepam, duloxetine ?Ropinirole #History of hypotension, likely secondary to CVA Please continue to give monitor blood pressure and resume home medication of midodrine 10 mg p.o. twice daily Plan -Resume midodrine 10 mg p.o. twice daily #History of seizures Past medical history of seizure with Aptiom at home medication 800 mg p.o. at bedtime. Plan -Seizure precautions - Aptiom 800 mg p.o. at bedtime - Consider Ativan for breakthrough seizures #History of BPH Continue home medication of Flomax #Anemia of Chronic Disease no acute intervention, continue to monitor hgb and hct #Constipation plan -Senna -Lactulose 20 mg qday #Right upper extremity edema, resolved. Health Maintenance: Disp: Pt is currently admitted to floors for further management of sepsis secondary to complicated UTI and blood/ urine cultures. FEN: Cardiac Diet DVT: on subQ heparin Code: Full code The patient's plan was discussed with attending Dr. Greg Banks MD PGY1 Internal Medicine Attending Provider Attestation/Addendum I reviewed labs, imaging, EKG, home medications and prior available records. Face to face evaluation was performed by me. I have personally examined the patient and discussed assessment and plan with the IM team. I reviewed the resident note and agree with the plan with exceptions as below. Sepsis secondary to acute UTI History of recurrent UTIs Neurogenic bladder status post suprapubic catheter History of renal stones status post removal Nephrolithiasis status post stenting CVA with aphasia and left-sided residual weakness Started IV Zosyn. Sent blood and urine cultures: Blood cultures are growing gram-positive cocci. Added vancomycin. Repeated blood culture: Negative to date Consulted urology: Recommended to continue IV antibiotics. Remove Mur[place] catheter in 3 days which can be done by the patient's or home health nurse Trend WBC: Downtrending Possible discharge tomorrow once we get the final blood culture and urine culture results
[2024-06-26] MEDS: DULoxetine HCL 30 MG CAPSULE PO (20:19)
[2024-06-26] MEDS: rOPINIRole HCL 1 MG TABLET PO (20:19)
[2024-06-26] MEDS: ATORVASTATIN CALCIUM 20 MG TABLET PO (20:19)
[2024-06-26 20:58] LABS: Vancomycin,Trough 24.8 mcg/mL (5.0-10.0)
[2024-06-27] VITALS: BP 116/72; PULSE 61; RESP 16; TEMP 36.2; O2SAT 99
[2024-06-27] MEDS: HYDROcodone/APAP 5/325 TABLET 1 TAB PO (02:04)
[2024-06-27 04:00] VITALS: BP 103/70; PULSE 54; RESP 16; TEMP 36.2; O2SAT 100
[2024-06-27 04:10] VITALS: PULSE 52
[2024-06-27] MEDS: PIPER/TAZO 3.375 GM PREMIX 3.375 GM/50 ML BAG IV (05:19)
[2024-06-27 06:22] LABS: Alanine Aminotransferase 26 U/L (10-49); Albumin, Serum 3.2 gm/dL (3.5-5.0); Albumin/Globulin Ratio 1.3 (1.2-2.2); Alkaline Phosphatase 66 U/L (46-116); Anion Gap 7 (7-16); Aspartate Amino Transferase 22 U/L (0-34); BUN/Creatinine Ratio 11 Ratio (12-20); Bilirubin,Total 0.4 mg/dL (0.3-1.2); Blood Urea Nitrogen 10 mg/dL (9-23); Calcium 8.9 mg/dL (8.3-10.6); Calcium (Corrected) 9.5 mg/dL (8.5-10.1); Carbon Dioxide 29.3 mMol/L (20.0-31.0); Chloride 105 mMol/L (98-107); Creatinine (Component) 0.9 mg/dL (0.6-1.3); Estimated Creatinine Clearance 121.1 mL/min (>60); Globulin 2.4 gm/dL (2.3-3.5); Glucose 95 mg/dL (74-106); Magnesium 1.8 mg/dL (1.6-2.6); Osmolality,Calculated 280 (275-295); Phosphorous 3.8 mg/dL (2.4-5.1); Potassium 3.7 mMol/L (3.4-5.1); Sodium 141 mMol/L (136-145); Total Protein 5.6 gm/dL (5.7-8.2); eGFR > 60 See Note
[2024-06-27 08:00] VITALS: BP 116/60; PULSE 68; RESP 16; TEMP 36.2; O2SAT 100
[2024-06-27 08:31] VITALS: BP 116/60; PULSE 68
[2024-06-27] MEDS: TAMSULOSIN HCL 0.4 MG CAPSULE PO (08:31)
[2024-06-27] MEDS: LACTULOSE SYRUP 20 GM/30 ML UDC PO (08:31)
[2024-06-27] MEDS: FAMOTIDINE 20 MG TABLET PO (08:31)
[2024-06-27] MEDS: MIDODRINE 5 MG TABLET 10 MG PO (08:31)
[2024-06-27] MEDS: SENNA TABLET 1 TAB PO (08:31)
[2024-06-27] MEDS: PREGABALIN 75 MG CAPSULE PO (08:31)
[2024-06-27] MEDS: HEPARIN SOD INJ 5000 UNIT/ML VIAL SC (08:32)
[2024-06-27] MEDS: VANCOMYCIN/D5W 1,250 MG IVPB 250 ML 120 MG IV (09:17)
[2024-06-27 09:19] LABS: Basophils % (Auto) 1 % (0-2.5); Eosinophils # (Auto) 0.3 Thou/mm3 (0.0-0.5); Eosinophils % (Auto) 7 % (0-10); Hematocrit 30.8 % (41.0-53.0); Hemoglobin 9.9 g/dL (13.5-16.0); Immature Granulocytes % (Auto) 1 % (0-0); Immature Granulocytes Auto 0.04 Thou/mm3 (0.00-0.00); Lymphocytes # (Auto) 1.4 Thou/mm3 (1.0-4.8); Lymphocytes % (Auto) 36 % (10-50); Mean Corpuscular HGB Conc 32.1 g/dl (31.0-37.0); Mean Corpuscular Hemoglobin 24.9 pg (25.0-35.0); Mean Corpuscular Volume 77 fL (80-100); Monocytes # (Auto) 0.3 Thou/mm3 (0.0-0.8); Monocytes % (Auto) 8 % (0-12); Neutrophils # (Auto) 1.9 Thou/mm3 (1.8-7.7); Neutrophils % (Auto) 47 % (37-80); Nucleated Red Blood Cell % 0 /100 WBC (0); Platelet Count 151 Thou/mm3 (140-440); RDW Standard Deviation 39.9 fL (35.1-43.9); Red Blood Count 3.98 Miln/mm3 (4.50-5.90)
--- NOTE | 2024-06-27 10:29 | PC.SS ---
SS met with patient who is alert/oriented. Patient was able to verify demographics. Patient was admitted for UTI. at bedside. Patient resides with . He needs total care at home. states patient had prior stroke. He uses a wheelchair, hospital bed, walter lift, shower chair. states they have a van with lift. will be providing transport upon discharge. Patient follows with Dr. Roberts, Dr. Ryan. PCP: Dr. Sidhu. Last appt. was 3 weeks ago. Patient is already open to [facility] for catheter care. Dc plan: return home with Pharmacy: [facility] medical decision maker: Roxanne Asif,
--- NOTE | 2024-06-27 11:03 | PC.CC ---
Addendum entered by Markie Hidalgo RN 06/27/24 13:52: Informed bedside nurse that pt can be discharged after tonight's dose, meds will be delivered today and [facility] will see the pt tomorrow. I informed bedside nurse to let the pt and his know about the plan and Dr. Berrios is also informed. Addendum entered by Markie Hidalgo RN 06/27/24 13:24: [facility] accepted the pt. Booked [facility]. Start of care with [facility] is tomorrow. [facility] will deliver the medications today. Addendum entered by Markie Hidalgo RN 06/27/24 12:52: received call from [place] at [facility] that they are able to see the pt tomorrow. Now waiting on [facility] if they can deliver the meds today. Addendum entered by Markie Hidalgo RN 06/27/24 12:43: No response yet from [facility]. I called [facility], spoke to [place]. She stated they are pretty full and soonest availability is on Saturday but she is going to talk to her intake team and see if they can move around patients to accommodate the pt. She stated intake team will call back. I gave them transfer center number and informed I am here only until 1400 but the other transfer nurse will be here tomorrow at 0700. Addendum entered by aMrkie Hidalgo RN 06/27/24 11:50: [facility] accepted the pt. Booked [facility]. Waiting on their response to see when they can deliver the med. Addendum entered by Markie Hidalgo RN 06/27/24 11:07: Initial HH referral sent to [facility] and [facility] on [address]. Awaiting responses. Pending start of care date. Addendum entered by Markie Hidalgo RN 06/27/24 11:04: per noted pt is open with [facility]. Original Note: per Dr. Berrios pt has a implanted port.
[2024-06-27] MEDS: CEFEPIME INJ 2 GM in SODIUM CHLORIDE 0.9% (Popper) 50 ML IV ×2 (11:19→17:01)
[2024-06-27 12:00] VITALS: BP 116/78; PULSE 58; PULSE 69; RESP 15; TEMP 36.1; O2SAT 100
[2024-06-27 15:10] VITALS: BMI 35.8
--- NOTE | 2024-06-27 15:55 | ESDS_ITS ---
<Statement entered by Faye Berrios DO - 06/28/24 13:37> I, Faey Berrios DO, attest that I was physically present for the holman portions of the service and evaluated the patient with the resident and I reviewed and discussed the case with the resident and agree with the resident's findings and plans of care as documented above Planned Discharge Date 06/27/24 DS: Providers Provider Date of admission: 06/24/24 11:32 Primary care physician: Physician No Primary/Family Admitting Provider: Wilian Garza MD Attending Provider on Admission: Wilian Garza MD Attending Provider on DC: Mary Banks MD Discharging Provider: Mary Banks MD DS: Diagnosis Problem List Completed Was Problem List Reviewed/Reconciled?: Yes Hospital Course Hospital Course Hospital course: Summary: Patient is a 53-year-old male with a past medical history of hypotension (on midodrine), hyperlipidemia, CVA-hemorrhagic, s/p parietal lobectomy w/ L- paraplegia, nuerogenic bladder, aphasia, and BPH, history and AKA left lower extremity who was admitted on 06/24/2024 for sepsis secondary to complicaed UTI and renal calculi s/p lithotripsy w/ no signfiicant hydronephrosis of right kidney. Patient started on broad spectrum antibiotics and will be discharged on Cefepime IV for coverage of Pseudomonas unit July 08. ER Course: Upon arrival to the emergency room patient's vital indicated tachycardia with a pulse of 133, pyrexia with fever 102.8 and elevated WBC count of 12.5. Patient noted to have anemia with hemoglobin of 7.1 and hematocrit of 22.1 which is slightly lower than patient's baseline, but may be secondary to recent procedure. UA noted to be turbid, +3 blood, RBCs 552, WBC count of 946, positive esterase with bacteria noted in the UA. Blood culture and urine culture obtained in the ER. Chest x-ray showed no pneumonia. CT abdomen pelvis showed right ureteral stent with multiple 2 to 6 mm right ureteral calculi and no significant hydronephrosis. Hospital Course: During hospital course patient was started on broad specturm antibiotics that included Zosyn and Vancomycin given recent accounting methods analyst that placed a supr-pubic catheter. Blood cultures obtained and urine culture obtained. CT abdomen/pelvis showed ureteral stent w/ multiple 2 to 6 mm right ureteral calculi.No significant hydronephrosis. WBC count continue to downtrend. Blood culture grews staphylococcus epidermidis that likely contaminant. Second set of blood cultures negative. Urine culture positive for Pseudomans aeruginosa sensitive to few antibiotics including Zosyn, Tobramycin, Ceftazidime, and Cefepime. Patient was discharged with home health on Cefepime IV via porth a cath until July 08 for treatment of complicated urinary tract infection. Venous Doppler study negative for DVT given right upper extremity swelling that resolved after stopping IV fluids via right arm. Instructions: -Please complete IV antibiotic course with Cefepime 2 gram twice daily via port a cath until July 08 -Please follow up with your primary care provider within one week of discharge -If your symptoms worsen,please seek immediate medical attention and return to your nearest emergency room -If you do not have a primary care provider, you may follow up at the [facility] at [address] [place] [address] [address], [place] [address], Stable, home with home health #Sepsis secondary to complicated urinary tract infection, resolved #Complicated urinary tract infection status post lithotripsy #Luekocytosis, improved #Renal calculi, no significant hydronephrosis #Neurogenic bladder, chronic indwelling Murcia catheter #History of CVA status post partial lumpectomy #Status post paraplegia #History of hypotension, likely secondary to CVA #History of seizures #History of BPH #Constipation #Right upper extremity edema, resolved. - The patient's plan was discussed with attending Dr. Agustina Banks MD PGY1 Internal Medicine Time Spent with Patient Time attestation: Total time spent providing and/or coordinating discharge services:at least 30 minutes of care and coordination Time spent: Greater than 30 minutes Home Health Home Health Referral Orders: 06/27/24 10:26 Home Health Referral Routine Reason For Exam: UTI Home-Bound The patient must either because of illness or injury, need the aid of supportive devices such as crutches, canes, wheelchairs, and walkers; the use of special t ransportation; or the assistance of another person in order to leave their place of residence; OR have a condition such that leaving his or her home is medically contraindicated. In addition, the patient also meets the following criteria: patient is normally unable to leave the home and leaving home requires considerable taxing effort. Addendum to Home Health Certification Practitioner's Certification: I certify that the patient has been under my care in the hospital and the care of attending physician (see below). We had a pcak-[id number]-pydf encounter on (see date below). My clinical findings indicate that the patient is home bound per the above criteria and the Home Health Services noted in these orders are medically necessary. The primary reason for the [id number] encounter is related to the fact that the patient requires home health services. Date Certifying Kyfb-ei-Nlat Physician Encounter: 06/24/24 Physician's Name who will Assume Oversight for HH Services: Dmitry Sidhu (RAIN) Physician's Phone No.who will Assume Oversight for Service: HYPOID GEAR GENERATOR - Community Resources: No PT to Evaluate: No PT to evaluate and provide a treatmnet plan to increase patient's mobility and strength. Wound Care: No IV Therapy: Yes IV Medication: cefepime IV Dose: 2g IV Frequency: BID IV Stop Date: 07/03/24 Discontinue PICC Line Once Treatment Complete: No RN Safety Evaluation: Yes RN to evaluate and create a plan of care that will produce positive outcomes. Palliative Treatment: No Palliative treatment and evaluate the need for hospice. Home Health Aide - Personal Care: Yes Home Health Aide to assist with any ADL's. Exam Vital Signs Temp Pulse Resp BP Pulse Ox O2 Del Method 97.0 F 58 L 15 116/78 100 Room Air 06/27/24 12:06/27/24 12:06/27/24 12:06/27/24 12:06/27/24 12:06/27/24 12:00 Narrative Exam General Appearance: Alert & Oriented X2, well-nourished male who is lying in bed in no acute distress HEENT: Skull symmetrical and atraumatic. Conjunctivae pin and moist. Pupils equal, round, reactive to light and accommodation (PERRL). External ear without lesion or discharge. Straight, nares patient, mucosa pink, no discharge. No thyroid nodule appreciated. No cervical lymphadenopathy. Cardio: Normal Rate and Rhythm with S1 and S2 heart sounds. No murmurs or extra heart sounds auscultated. No bruits on carotid auscultation. No peripheral edema or cyanosis. Lungs: Symmetric with good expansion. Chest and back non-tender. Breath sounds vesicular without crackles, wheezing or rhonchi Abdomen: mild tender, Non-distended, Normal Reactive Bowel Sounds, supra pubic region non distended non rigid. Neuro: Yes Alert, Yes cooperative, Yes oriented to person, Yes place, and NO time. Aphasia but discernable. CN grossly intact. Upper motor strength 4/5 and Lower motor strength 2/5. Sensation intact. Discharge Plan Plan Patient Disposition: Home w/HOME HEALTH Disposition Comment: Hospitalist admit Dr. Finch to consult Patient condition on transfer: Stable Care Plan Goals: Instructions: -Please complete IV antibiotic course with Cefepime 2 gram twice daily via port a cath until July 08 -Please follow up with your primary care provider within one week of discharge -If your symptoms worsen,please seek immediate medical attention and return to your nearest emergency room -If you do not have a primary care provider, you may follow up [facility] [address], [place] [address], Prescriptions/Referrals Prescriptions/Med Rec: New cefepime 2 gram recon soln 2 g IV Q12H 11 Days Continued Aptiom 800 mg tablet 800 mg PO HS Patient Comments: TAKE 1 TABLET BY MOUTH EVERY DAY diazepam [Valium] 5 mg Tablet 5 mg PO PRN PRN (Reason: Anxiety) famotidine 20 mg Tablet 20 mg PO QDAY Qty: 30 0RF tamsulosin [Flomax] 0.4 mg capsule 0.4 mg PO QDAY Qty: 30 0RF promethazine-DM 6.25-15 mg/5 mL syrup 5 ml PO [id number] PRN (Reason: Cough) Patient Comments: TAKE 5 MLS BY MOUTH EVERY 6 HOURS NEEDED FOR COUGH hydrocodone-acetaminophen 5-325 mg tablet 2 tab PO Q8H MDD 6 PRN (Reason: pain) Qty: 20 0RF atorvastatin 20 mg tablet 20 mg PO QDAY Patient Comments: TAKE 1 TABLET BY MOUTH EVERY DAY duloxetine 30 mg capsule,delayed release(DR/EC) 60 mg PO QPM Patient Comments: TAKE 1 CAPSULE BY MOUTH EVERY DAY pregabalin 75 mg capsule 75 mg PO BID Patient Comments: TAKE 1 CAPSULE BY MOUTH TWICE A DAY ropinirole 1 mg tablet 1 mg PO QPM Patient Comments: TAKE 1 TABLET BY MOUTH AT BEDTIME midodrine 10 mg tablet 10 mg PO BID Patient Comments: TAKE 1 TABLET (10 MG) BY MOUTH TWICE A DAY HOLD IF BP SYSTOLIC OVER 120 Held hydrocodone-acetaminophen 5-325 mg Tablet 1 tab PO Q6H PRN (Reason: Pain) Hold Instructions: Please hold until you follow up with your pcp Referrals: No Primary/Family,Physician [Primary Care Provider] - Patient/Caregiver Discharge Instructions Education Materials: Anatomy of the Male Urinary Tract, ED Murcia Catheter, Care, ED Urinary Retention, Male, ED Bladder Infection, Male (Adult) Print Language: Greenlandic Stand Alone Forms: Janice Award Info., Patient Portal Info Letter Discharge Order Discharge Orders: Discharge (Routine); Ordered 06/27/24 Ordered By: Mary Banks Quality Discharge Quality Measures VTE prophylaxis
--- NOTE | 2024-06-27 15:57 | PC.NURSE ---
patient refuse to put tele box on.doc made aware .
[2024-06-27] MEDS: HEPARIN SOD LOCK SYR 100 UNIT/ML 500 UNIT IV (17:43)
--- NOTE | 2024-06-27 18:22 | PC.NURSE ---
pt going with a port of cath pt getting antibiotic at home untill july 08 twice a day . doc ok to send pt to home with port of cath.
--- NOTE | 2024-06-28 11:20 | PC.CM ---
Patient discharged yesterday. [facility] to see patient today.
== END 2024-06-27 18:31 | disposition home health service (06) | DRG 872 ==
LOC: SERX 06-24 09:54 → SERHOLD 06-24 11:58 → S3SX 06-24 13:13
PROVIDERS: Emergency Medicine; Registered Nurse General Practice; Admitting Provider Student in an Organized Health Care Education/Training Program; Emergency Provider Emergency Medicine; Visit Provider Student in an Organized Health Care Education/Training Program
DX: A41.52 Sepsis due to Pseudomonas (principal); N39.0 Urinary tract infection, site not specified; G82.20 Paraplegia, unspecified; N20.2 Calculus of kidney with calculus of ureter; I69.151 Hemiplegia and hemiparesis following nontraumatic intracerebral hemorrhage affecting right dominant side; Z89.512 Acquired absence of left leg below knee; D64.89 Other specified anemias; D63.8 Anemia in other chronic diseases classified elsewhere; E78.5 Hyperlipidemia, unspecified; N31.9 Neuromuscular dysfunction of bladder, unspecified; G40.909 Epilepsy, unspecified, not intractable, without status epilepticus; I69.120 Aphasia following nontraumatic intracerebral hemorrhage; K59.00 Constipation, unspecified; N40.0 Benign prostatic hyperplasia without lower urinary tract symptoms; Z79.899 Other long term (current) drug therapy; Z87.442 Personal history of urinary calculi; Z86.61 Personal history of infections of the central nervous system; Z87.440 Personal history of urinary (tract) infections; Z89.612 Acquired absence of left leg above knee
CPT/HCPCS: 36415; 71045; 74176; 80053; 80061; 80202; 81001; 83605; 83615; 83690; 83735; 83880; 84100; 84145; 84439; 84443; 84484; 85025; 85610; 85730; 87040; 87077; 87081; 87086; 87186; 87400; 87811; 93005; 93225; 93970; 94762; 96365; 96366; 96367; 96375; 99285; J0131; J0692; J1642; J1643; J2405; J2543; J3370; J3475; J3490; J7030; J7040; J7050; A9270

== ENCOUNTER → 2024-06-30 | Outpatient (CLI) | payer BC, MEDICARE, SELFPAY ==
[2024-06-30 13:21] LABS: Basophils % (Auto) 1 % (0-2.5); Eosinophils # (Auto) 0.2 Thou/mm3 (0.0-0.5); Eosinophils % (Auto) 4 % (0-10); Hematocrit 30.8 % (41.0-53.0); Hemoglobin 9.6 g/dL (13.5-16.0); Immature Granulocytes % (Auto) 2 % (0-0); Immature Granulocytes Auto 0.08 Thou/mm3 (0.00-0.00); Lymphocytes # (Auto) 1.6 Thou/mm3 (1.0-4.8); Lymphocytes % (Auto) 39 % (10-50); Mean Corpuscular HGB Conc 31.2 g/dl (31.0-37.0); Mean Corpuscular Hemoglobin 24.4 pg (25.0-35.0); Mean Corpuscular Volume 78 fL (80-100); Monocytes # (Auto) 0.4 Thou/mm3 (0.0-0.8); Monocytes % (Auto) 10 % (0-12); Neutrophils # (Auto) 1.9 Thou/mm3 (1.8-7.7); Neutrophils % (Auto) 46 % (37-80); Nucleated Red Blood Cell % 0 /100 WBC (0); Platelet Count 108 Thou/mm3 (140-440); RDW Standard Deviation 41.1 fL (35.1-43.9); Red Blood Count 3.94 Miln/mm3 (4.50-5.90); White Blood Count 4.2 Thou/mm3 (3.8-10.6)
[2024-06-30 13:36] LABS: Alanine Aminotransferase 29 U/L (10-49); Albumin, Serum 3.7 gm/dL (3.5-5.0); Albumin/Globulin Ratio 1.5 (1.2-2.2); Alkaline Phosphatase 72 U/L (46-116); Anion Gap 5 (7-16); Aspartate Amino Transferase 25 U/L (0-34); BUN/Creatinine Ratio 19 Ratio (12-20); Bilirubin,Total 0.4 mg/dL (0.3-1.2); Blood Urea Nitrogen 17 mg/dL (9-23); Calcium 8.8 mg/dL (8.3-10.6); Carbon Dioxide 29.7 mMol/L (20.0-31.0); Chloride 109 mMol/L (98-107); Creatinine (Component) 0.9 mg/dL (0.6-1.3); Globulin 2.4 gm/dL (2.3-3.5); Glucose 90 mg/dL (74-106); Osmolality,Calculated 288 (275-295); Potassium 3.5 mMol/L (3.4-5.1); Sodium 144 mMol/L (136-145); Total Protein 6.1 gm/dL (5.7-8.2); eGFR > 60 See Note
== END | disposition home or self-care (01) ==
LOC: SLDO 12:39
PROVIDERS: Referring Provider Family Medicine; Visit Provider Family Medicine
DX: N39.0 Urinary tract infection, site not specified (principal)
CPT/HCPCS: 36415; 80053; 85025

== ENCOUNTER → 2024-07-16 | Outpatient (CLI) | payer BC, SELFPAY | END | disposition home or self-care (01) | LOC: SLDO 10:49 | PROVIDERS: PCP Family Medicine; Referring Provider Family Medicine; Visit Provider Family Medicine | DX: Z01.89 Encounter for other specified special examinations (principal) | CPT/HCPCS: 87070; 87077; 87186; 87205 ==

== ENCOUNTER 2024-07-24 20:49 | Observation (INO) | payer BC, MEDICARE, SELFPAY ==
[2024-07-24 21:13] VITALS: BP 122/83; PULSE 104; RESP 18; TEMP 37.6; O2SAT 98; BMI 35.9
--- NOTE | 2024-07-24 21:23 | PD.EDRME ---
Rapid Medical Screening Exam E Arrival date/time: 07/24/24 20:49 53M with history of chronic kidney stones, UTIs, L BKA, seizures, BPH, and indwelling suprapubic cath presents to ED with 1 day of fevers/chills after suprapubic cath was changed at [facility] today. Insertion site has been infected with MRSA (patient has been on Clindamycin for 2 days). Chief Complaint: Urogenital-Male Vital signs: Vital Signs Temperature 99.7 F 07/24/24 21:13 Pulse Rate 104 H 07/24/24 21:13 Respiratory Rate 18 07/24/24 21:13 Blood Pressure 122/83 07/24/24 21:13 Pulse Oximetry (%) 98 07/24/24 21:13 Oxygen Delivery Method Room Air 07/24/24 21:13
[2024-07-24 21:38] LABS: Collection Type, Urine Catheter; Squamous Epithelial Cell,Urine 0 /hpf (0-5)
[2024-07-24 21:43] LABS: Bilirubin,Urine Negative (Negative); Blood,Urine 3+ (Negative); Calcium Oxalate Crystals,Urine 1+; Clarity,Urine Turbid (Clear/Hazy); Color,Urine Yellow (Lt Yel-Yel); Glucose, Urine Negative (Negative); Ketones,Urine Negative (Negative); Leukocyte Esterase,Urine Positive (Negative); Nitrite,Urine Positive (Negative); Protein,Urine 1+ (Neg - Trace); RBC,Urine 285 /hpf (0-3); Specific Gravity,Urine 1.026 (1.001-1.035); Urobilinogen,Urine Negative mg/dL (0.0-1.0); WBC,Urine 346 /hpf (0-5)
[2024-07-24 23:00] VITALS: BP 108/90; PULSE 107; RESP 16; TEMP 37; O2SAT 99
[2024-07-24 23:46] VITALS: TEMP 37
[2024-07-24] MEDS: KETOROLAC INJ 30 MG/ML VIAL 15 MG IVP (23:46)
[2024-07-24] MEDS: SODIUM CHLORIDE 0.9% 1000 ML 1,000 ML 999 ML IV (23:49)
[2024-07-24 23:57] LABS: Lactate (Lactic Acid) 2.4 mMol/L (0.4-2.0)
[2024-07-25] VITALS (15 sets, daily range): BP systolic 77–128; BP diastolic 50–86; PULSE 68–100; RESP 16–18; TEMP 36.2–37; O2SAT 95–99; BMI 34.4
[2024-07-25 00:02] LABS: Basophils # (Auto) 0.1 Thou/mm3 (0.0-0.2); Basophils % (Auto) 1 % (0-2.5); Eosinophils # (Auto) 0.1 Thou/mm3 (0.0-0.5); Eosinophils % (Auto) 0 % (0-10); Hematocrit 37.4 % (41.0-53.0); Hemoglobin 12.1 g/dL (13.5-16.0); Immature Granulocytes % (Auto) 1 % (0-0); Immature Granulocytes Auto 0.06 Thou/mm3 (0.00-0.00); Lymphocytes # (Auto) 1.8 Thou/mm3 (1.0-4.8); Lymphocytes % (Auto) 16 % (10-50); Mean Corpuscular HGB Conc 32.4 g/dl (31.0-37.0); Mean Corpuscular Hemoglobin 24.3 pg (25.0-35.0); Mean Corpuscular Volume 75 fL (80-100); Monocytes # (Auto) 0.7 Thou/mm3 (0.0-0.8); Monocytes % (Auto) 6 % (0-12); Neutrophils # (Auto) 8.8 Thou/mm3 (1.8-7.7); Neutrophils % (Auto) 77 % (37-80); Nucleated Red Blood Cell % 0 /100 WBC (0); Platelet Count 198 Thou/mm3 (140-440); RDW Standard Deviation 39.7 fL (35.1-43.9); Red Blood Count 4.98 Miln/mm3 (4.50-5.90); White Blood Count 11.4 Thou/mm3 (3.8-10.6)
[2024-07-25 00:25] LABS: Alanine Aminotransferase 26 U/L (10-49); Albumin, Serum 4.2 gm/dL (3.5-5.0); Alkaline Phosphatase 118 U/L (46-116); Anion Gap 12 (7-16); Aspartate Amino Transferase 21 U/L (0-34); BUN/Creatinine Ratio 15 Ratio (12-20); Blood Urea Nitrogen 16 mg/dL (9-23); Calcium 8.9 mg/dL (8.3-10.6); Calcium (Corrected) 8.9 mg/dL (8.5-10.1); Carbon Dioxide 22.3 mMol/L (20.0-31.0); Chloride 108 mMol/L (98-107); Creatinine (Component) 1.1 mg/dL (0.6-1.3); Estimated Creatinine Clearance 99.1 mL/min (>60); Glucose 197 mg/dL (74-106); Osmolality,Calculated 289 (275-295); Sodium 142 mMol/L (136-145); eGFR > 60 See Note
[2024-07-25 00:32] LABS: Albumin/Globulin Ratio 1.3 (1.2-2.2); Bilirubin,Total 0.4 mg/dL (0.3-1.2); Globulin 3.2 gm/dL (2.3-3.5); Procalcitonin 0.08 ng/ml (0.0-0.49); Total Protein 7.4 gm/dL (5.7-8.2)
[2024-07-25] MEDS: SODIUM CHLORIDE 0.9% 1000 ML 1,000 ML 999 ML IV (01:57)
--- NOTE | 2024-07-25 02:19 | PD.EDMALE ---
ED Male Genitalurinary RME/HPI General Chief complaint: Urogenital-Male Stated complaint: FEVER AFTER SUPRAPUBIC CATH PLACED Source: patient and family () Arrival date/time: 07/24/24 20:49 Mode of arrival: wheelchair Limitations: physical limitation RME / HPI RME / HPI Narrative: 07/24/24 20:49 53M with history of chronic kidney stones, UTIs, L BKA, seizures, BPH, and indwelling suprapubic cath presents to ED with 1 day of fevers/chills after suprapubic cath was changed at [facility] today. Insertion site has been infected with MRSA (patient has been on Clindamycin for 2 days). DR. HSU?S MAIN ED EVALUATION: 53-year-old male with history of CVA, Renal Disease, Kidney Stones, MRSA and Chronic UTI's presenting to the emergency department via private auto BIB who is presenting for stated complaint of fever and chills s/p suprapubic catheter change at [facility] x 1 day. Insertion site has been infected with MRSA and patient salma been taking Clindamycin for 2 days now. Patient denies any other associated symptoms or medical complaints. - PMH:?Cerebrovascular Accident, Seizures, Paralysis, Hypotension, Obesity, Renal Disease, Kidney Stones, Osteomyelitis, Depression and Anxiety - PSH: Denies - Social history: Denies - Current medications: Reviewed PCP is Edwige Sidhu MD Associated symptoms: Reports fever Related Data Home Medications ?Medication ?Instructions ?Recorded ?Confirmed atorvastatin 20 mg tablet 20 mg PO QDAY 12/26/21 07/25/24 duloxetine 30 mg capsule,delayed 60 mg PO QPM 12/26/21 07/25/24 release pregabalin 75 mg capsule 75 mg PO BID 12/26/21 07/25/24 eslicarbazepine 800 mg tablet 800 mg PO HS 07/24/23 07/25/24 (Aptiom) hydrocodone 5 mg-acetaminophen 325 1 tab PO Q6H PRN Pain 07/24/23 07/25/24 mg tablet Held on 06/27/24. Instructions: Please hold until you follow up with your pcp midodrine 10 mg tablet 10 mg PO BID 07/31/23 07/25/24 ropinirole 1 mg tablet 1 mg PO QPM 07/31/23 07/25/24 promethazine-DM 6.25 mg-15 mg/5 mL 5 ml PO [id number] PRN Cough 08/26/23 07/25/24 oral syrup clindamycin HCl 150 mg capsule mg 07/25/24 Previous Rx's ?Medication ?Instructions ?Recorded famotidine 20 mg tablet 20 mg PO QDAY #30 tabs 09/27/22 tamsulosin 0.4 mg capsule (Flomax) 0.4 mg PO QDAY #30 caps 05/23/23 hydrocodone 5 mg-acetaminophen 325 2 tab PO Q8H PRN pain #20 tabs 05/10/24 mg tablet Allergies Allergy/AdvReac Type Severity Reaction Status Date / Time No Known Allergies Allergy Verified 06/25/24 13:52 Review of Systems Review of Systems Systems Reviewed: All systems reviewed, normal except as documented Constitutional Constitutional: Reports fever(s) Past Medical History Past Medical History NEUROLOGIC: Positive Cerebrovascular Accident, Seizures and Paralysis CARDIAC: Positive Hypotension GASTROINTESTINAL: Positive Gastrointestinal Disorders and Obesity GENITOURINARY: Positive Genitourinary Disorders, Renal Disease and Kidney Stones MUSCULOSKELETAL: Positive Osteomyelitis PSYCHO/SOCIAL: Positive Depression and Anxiety OTHER HISTORY: Positive Hospitalization, Shingles, MRSA and Chicken Pox Family History FAMILY HISTORY: Positive Family Surgery ED Exam General Limitations: Present physical limitation General appearance: Present alert, in no apparent distress and other (Does not appear septic, talks in full sentences, paraplegic) Head Head exam: Present atraumatic, normocephalic and normal inspection Eye Eye exam: Present normal appearance, PERRL and EOMI ENT ENT exam: Present normal exam, normal oropharynx, mucous membranes moist and TM's normal bilaterally Neck Neck exam: Present normal inspection, full ROM and trachea midline Chest Chest inspection: Present normal inspection and symmetric chest wall rise; Absent rash Respiratory Respiratory exam: Present normal lung sounds bilaterally; Absent respiratory distress, wheezes or stridor Cardiovascular Cardiovascular exam: Present regular rate, normal rhythm and normal heart sounds Abdominal Exam Abdominal exam: Present soft and other (dry discharge around suprapubic cath site); Absent distention or tenderness Extremities Exam Extremities exam: Present normal inspection and normal capillary refill; Absent pedal edema Neurological Exam Neurological exam: Present alert, oriented X3 and other (paraplegic) Psychiatric Psychiatric exam: Present normal affect and normal mood; Absent depressed, agitated or anxious Skin Skin exam: Present warm, dry, intact and normal color; Absent rash Course Quality Measures none Orders Category Date Time Status Bedside COVID-19 Antigen Test NOW Care 07/24/24 23:59 Active COVID-19 Screening Questionnaire NOW Care 07/24/24 22:50 Active Decision to Admit X1 Care 07/24/24 22:50 Completed Insert IV NOW Care 07/24/24 21:22 Active Blood Culture (Lab) Stat Lab 07/24/24 23:46 Received CBC Stat Lab 07/24/24 23:46 Completed CMP [Comprehensive Metabolic Panel] Stat Lab 07/24/24 23:46 Completed Lactate (Lactic Acid) Stat Lab 07/24/24 23:46 Completed Lactic Acid, 3 HR Stat Lab 07/25/24 03:30 Completed Procalcitonin Stat Lab 07/24/24 23:46 Completed Urinalysis Stat Lab 07/24/24 21:33 Completed Urine Culture Stat Lab 07/24/24 21:33 Received Clindamycin/Ns 600 mg Ivpb [Cleocin/Ns Ivpb] Med 07/25/24 03:50 Discontinued 600 mg in 50 ml IV X1 Ketorolac Inj [Toradol Inj] Med 07/24/24 21:22 Discontinued 15 mg IVP X1 ONE Sodium Chloride 0.9% 1000 ml [Ns] 1,000 ml Med 07/24/24 21:22 Discontinued IV 999 mls/hr Sodium Chloride 0.9% 1000 ml [Ns] 1,000 ml Med 07/25/24 01:52 Discontinued IV 999 mls/hr Sodium Chloride 0.9% 500 ml [Ns] 500 ml Med 07/25/24 03:43 Discontinued IV 999 mls/hr Vital Signs Vital signs: Vital Signs Temperature 99.7 F 07/24/24 21:13 Pulse Rate 104 H 07/24/24 21:13 Respiratory Rate 18 07/24/24 21:13 Blood Pressure 122/83 07/24/24 21:13 Pulse Oximetry (%) 98 07/24/24 21:13 Oxygen Delivery Method Room Air 07/24/24 21:13 Urogenital - Male MDM Narrative MDM Narrative:: Scribe Attestation: 07/24/2024 Joan Birch am scribing for and in the presence of Dr. Hsu. Provider Notation: Although this document has been carefully reviewed, there may still be some phonetic and other typographical errors.? These errors are purely grammatical due to imperfections in the software program and should not be construed in any way to compromise the substance of the patient's medical care during this visit. 53-year-old male with history of CVA, Renal Disease, Kidney Stones, MRSA and Chronic UTI's presenting to the emergency department via private auto BIB who is presenting for stated complaint of fever and chills s/p suprapubic catheter change at [facility] x 1 day. ROS: fever and chills x 1 day. EDC: Differential diagnoses includes Sepsis, UTI, Cellulitis, Electrolyte abnormality 0429: Hospitalist agrees to admit patient for further evaluation and treatment. Patient data External records reviewed:: [facility] previous records (Reviewed prior ED records from 06/27/24. Patient was seen for Acute UTI.) Clinical information provided by:: patient and spouse () Social determinants that could affect healthcare access:: mental health Patient has the following chronic illnesses:: Cerebrovascular Accident, Seizures, Paralysis, Hypotension, Obesity, Renal Disease, Kidney Stones, Osteomyelitis, Depression and Anxiety How is presenting disease/condition affected by chronic disease/condition?: exacerbated by Evaluation data The following diagnostics were reviewed and interpreted by me:: lab results Lab and/or radiology exams considered but not ordered:: None Interpretation Summary: LABS WBC 11.4, Hgb 12.1, Hct 37.4%, MCV 75, MCH 24.3, Neut # 8.8, Immature Gran # 0.06, Immature Gran % 1%. Chloride 108, Glucose 197, Lactic Acid 2.4, Alkaline Phosphatase 118. Urine Clarity Turbid A, Urin eprotein 1+, Urine blod 3+, Urine RBC 285, Urine WBC 346, Calcium Oxalate Crystal 1+. Medications / Prescriptions Medications or Prescriptions considered but not ordered:: None Medication administrations:: Medication Administration History Acetaminophen (Acetaminophen 325 Mg Tablet) 650 mg PO Q6H PRN PRN Reason: Fever >100.4 or Pain 1-3 Stop: 08/24/24 04:31 Hydrocodone Bitart/Acetaminophen (Hydrocodone/Apap 5/325 Tablet) 2 tab PO Q8H PRN PRN Reason: PAIN SCALE 4-10(Mod-Sev Stop: 07/30/24 04:55 Last Admin: 07/25/24 05:38 Dose: 2 tab Atorvastatin Calcium (Atorvastatin Calcium 20 Mg Tablet) 20 mg PO QDAY ANTONIO Stop: 08/24/24 08:59 Duloxetine HCl (Duloxetine Hcl 30 Mg Capsule) 60 mg PO QPM ANTONIO Stop: 08/24/24 20:59 Heparin Sodium (Porcine) (Heparin Sod Inj 5000 Unit/Ml Vial) 5,000 unit SC Q12HR ANTONIO Stop: 08/08/24 08:59 Lactated Ringer's (Lactated Ringers) 1,000 mls @ 125 mls/hr IV .Q8H ANTONIO Stop: 07/25/24 20:37 Last Admin: 07/25/24 04:52 Dose: 125 mls/hr Documented By: NIURKA Vancomycin/Sodium Chloride (Vancomycin/Ns 1 Gm Ivpb) 200 mls @ 120 mls/hr IV X1 ONE Stop: 07/25/24 06:39 Midodrine (Midodrine 5 Mg Tablet) 10 mg PO BID ANTONIO Stop: 08/24/24 08:59 Non-Formulary Medication (Eslicarbazepine [Aptiom]) 800 mg PO HS ANTONIO Stop: 08/24/24 20:59 Ondansetron HCl (Ondansetron Inj 2 Mg/Ml Inj 2 Ml) 4 mg IVP Q6H PRN; Protocol PRN Reason: NAUSEA OR VOMITING Stop: 08/24/24 04:31 Pharmacy Consult (Vancomycin Pharmacy To Dose 1 Each Each) 1 each IV QDAY ANTONIO Stop: 08/24/24 08:59 Pregabalin (Pregabalin 75 Mg Capsule) 75 mg PO BID ANTONIO Stop: 08/24/24 08:59 Ropinirole HCl (Ropinirole Hcl 1 Mg Tablet) 1 mg PO QPM ANTONIO Stop: 08/24/24 20:59 Tamsulosin HCl (Tamsulosin Hcl 0.4 Mg Capsule) 0.4 mg PO QDAY ANTONIO Stop: 08/24/24 08:59 Discontinued Medications Hydrocodone Bitart/Acetaminophen (Hydrocodone/Apap 5/325 Tablet) 2 tab PO Q8H PRN PRN Reason: pain Stop: 07/30/24 04:55 Sodium Chloride (Ns) 1,000 mls @ 999 mls/hr IV .Q1H1M ONE Stop: 07/24/24 22:22 Last Infusion: 07/25/24 00:59 Dose: Infused Documented By: Admin: 07/24/24 23:49 Dose: 999 mls/hr Documented By: DT Sodium Chloride (Ns) 1,000 mls @ 999 mls/hr IV .Q1H1M ONE Stop: 07/25/24 02:52 Last Infusion: 07/25/24 03:13 Dose: Infused Documented By: Admin: 07/25/24 01:57 Dose: 999 mls/hr Documented By: DT Sodium Chloride (Ns) 500 mls @ 999 mls/hr IV .Q31M ONE Stop: 07/25/24 04:13 Last Infusion: 07/25/24 04:21 Dose: Infused Documented By: Admin: 07/25/24 03:45 Dose: 999 mls/hr Documented By: DT Clindamycin/Sodium Chloride (Cleocin/Ns Ivpb) 600 mg in 50 mls @ 100 mls/hr IV X1 ONE Stop: 07/25/24 04:19 Last Infusion: 07/25/24 04:31 Dose: Infused Documented By: Admin: 07/25/24 03:54 Dose: 100 mls/hr Documented By: DT Ketorolac Tromethamine (Ketorolac Inj 30 Mg/Ml Vial) 15 mg IVP X1 ONE Stop: 07/24/24 21:23 Last Admin: 07/24/24 23:46 Dose: 15 mg Documented By: DT See above if any Consultations Consultation(s) initiated? (list below): Yes Consultation #1 (Physician, Specialty, Details): Dr. Metzger made aware of the patient?s HPI, PMHx, lab and/or radiology results. Treatment plan was discussed. Will come down to evaluate patient. Time: 03:47 Consultation #2 (Physician, Specialty, Details): Dr. Metzger, our Hospitalist, will admit the patient. Time: 04:29 Diagnosis Urogenital Male Differential Diagnosis: other (Sepsis, UTI, Cellulitis, Electrolyte abnormality) Most likely diagnosis given after review of the tests above:: Hypotension, History of Suprapubic Catheter Admission Indicated Admission indicated?: indicated Explain why admission is indicated or not indicated:: Hypotension Admission Request Was there a request for admission?: Yes Admission Attestation Admission request attestation: Discussed case with [] from Hospitalist service regarding admission. Discussed patients ED course, exam findings, labs, and radiology results. The Hospitalist [agrees,declines] to accept the patient for admission. Disposition Plan Disposition Plan: Admit Discharge Plan Plan Patient Disposition: Admit Acute Care w/in Hospital Patient condition on transfer: Stable Problem List Clinical Impression: Hypotension, History of suprapubic catheter
[2024-07-25 02:55] LABS: Reflex Lactate? Y
--- NOTE | 2024-07-25 03:15 | PC.NURSE ---
Informed provider Yoselyn patient BP 94/57 (69) post 2 NS bolus. Per provider That is patients baseline.
[2024-07-25 03:37] LABS: Lactic Acid, 3 HR 0.9 mMol/L (0.4-2.0)
[2024-07-25] MEDS: SODIUM CHLORIDE 0.9% 500 ML 500 ML 999 ML IV (03:45)
[2024-07-25] MEDS: CLINDAMYCIN/NS 600 MG IVPB 600 MG/50 ML BAG 100 MG IV (03:54)
--- NOTE | 2024-07-25 04:42 | ESHP_ITS ---
Documentation for date of: 07/25/24 [facility] History of Present Illness Chief complaint: Fever, chills x 1 day History of present illness: Patient is a 53-year-old male with past medical history of L-sided hemorrhagic stroke s/p parietal lobectomy, aphasia, R hemiplegia, and neurogenic bladder as residual deficits, urinary retention s/p chronic suprapubic catheter, seizures, recurrent UTIs, BPH, nephrolithiasis, L above-knee amputation, depression, and anxiety who presented to the ED on 07/25/2024 with symptoms of fever and chills after returning from appointment at [facility] to exchange his suprapubic [place] catheter. Usually it is exchanged monthly and the last time it was changed was about 4 weeks ago. He receives care with [facility] and on 07/16 cultures were obtained of the suprapubic site due to surrounding erythema in the skin. That culture grew MRSA and since 07/22 patient has been taking PO clindamycin 300 mg TID. Today the erythema has improved but there is a purulent discharge noted around the catheter insertion. Patient's only symptoms today are fever recorded at 101 at home and chills. is present at the bedside to assist with history and brought him to the hospital out of an abundance of caution. Denies any nausea, vomiting, flank pain, abdominal pain, suprapubic pain, chest pain, or shortness of breath. ED Course: -Initial vitals were BP 122/83, HR 104, RR 18, Temp 99.7, O2 98 on room air -Labs significant for WBC 11.4, chronic microcytic anemia Hgb 12.1, lactic acid 2.4 -> 0.9, procal negative -UA showed similar findings as frequent previous visits, positive for nitrites and leukocyte esterase, 285 RBCs, 346 WBCs, 1+ calcium oxalate crystals, no bacteria -In the ED, patient was given ketorolac 15 mg IV x1, 2.5L NS IV fluids, clindamycin 600 mg IV x1 -Patient was admitted for observation for UTI Review of Systems Review of systems otherwise negative except what is mentioned above. Past Medical History Past Medical History Comments PMH COMMENT: Past Medical History: L-sided hemorrhagic stroke s/p parietal lobectomy, aphasia, R hemiplegia, and neurogenic bladder as residual deficits, urinary retention s/p chronic suprapubic catheter, seizures, recurrent UTIs, BPH, nephrolithiasis, left AKA, depression, and anxiety Family History: No known family history of stroke, heart disease, diabetes, or hypertension Surgical History: Parietal lobectomy due to hemorrhagic stroke 2020, suprapubic catheter placement, left above-knee amputation Social History: Denies history of smoking, denies current alcohol use, denies recreational drug use, lives at home with Current Medications: eslicarbazepine 800 mg HS, midodrine 10 mg BID, atorvastatin 20 mg, ropinirole 1 mg HS, pregabalin 75 mg BID, duloxetine 60 mg HS, tamsulosin 0.4 mg daily, hydrocodone-acetaminophen 10-325 mg prn (Source: Med rec) Allergies: No known drug allergies Exam Vital Signs Temp Pulse Resp BP Pulse Ox O2 Del Method 98.6 F 78 16 88/60 L 99 Room Air 07/25/24 03:00 07/25/24 03:00 07/25/24 03:00 07/25/24 03:00 07/25/24 03:00 07/25/24 03:00 Narrative Exam Physical Exam General: Awake and in no acute distress. Moderate aphasia but non-toxic appearing. HEENT: Normocephalic, atraumatic, mucous membranes moist. Heart: Regular rate and rhythm, normal S1 and S2, no murmurs. Lungs: Clear to auscultation with no wheezing or crackles. Abdomen: Soft, obese, nondistended, nontender, positive bowel sounds. ?No guarding or rebound tenderness. : Suprapubic catheter in place with mild davis-yellow purulent opaque discharge exiting stoma. Minimal amount of sediment in tubing, clear yellow urine in bag. Neurologic: Alert and oriented x3, total right hemiparesis, able to move left arm, sensations intact abdomen/suprapubic site. Extremities: No edema. Skin: No rash or ecchymoses. Results: Labs 07/25/24 04:49 07/25/24 04:49 Labs: Short CBC 07/24/24 Range/Units 23:46 WBC 11.4 H (3.8-10.6) Thou/mm3 Hgb 12.1 L (13.5-16.0) g/dL Hct 37.4 L (41.0-53.0) % Plt Count 198 D (140-440) Thou/mm3 BMP 07/24/24 23:46 Sodium 142 Potassium 4.0 Chloride 108 H Carbon Dioxide 22.3 BUN 16 Creatinine 1.1 Glucose 197 H Calcium 8.9 Liver Function 07/24/24 Range/Units 23:46 Total Bilirubin 0.4 (0.3-1.2) mg/dL AST 21 (0-34) U/L ALT 26 (10-49) U/L Alkaline Phosphatase 118 H (46-116) U/L Albumin 4.2 (3.5-5.0) gm/dL Urine 07/24/24 Range/Units 21:33 Urine Color Yellow (Lt Yel-Yel) Urine Clarity Turbid A (Clear/Hazy) Urine pH 6.0 (5.0-7.0) Ur Specific [place] 1.026 (1.001-1.035) Urine Protein 1+ A (Neg - Trace) Urine Glucose (UA) Negative (Negative) Quality Measures Quality Measures none Medications Home Medications and Allergies Home Medications ?Medication ?Instructions ?Recorded ?Confirmed ?Type atorvastatin 20 mg tablet 20 mg PO QDAY 12/26/2107/25 History duloxetine 30 mg capsule,delayed 60 mg PO QPM 12/26/21 07/25/24 History release pregabalin 75 mg capsule 75 mg PO BID 12/26/21 History eslicarbazepine 800 mg tablet 800 mg PO HS 07/24/23 History (Aptiom) hydrocodone 5 mg-acetaminophen 325 1 tab PO Q6H PRN Pa in 07/24/23 07/25/24 History mg tablet Held on 06/27/24. Instructions: Please hold until you follow up with your pcp midodrine 10 mg tablet 10 mg PO BID 07/31/23 History ropinirole 1 mg tablet 1 mg PO QPM 07/31/23 5 History promethazine-DM 6.25 mg-15 mg/5 mL 5 ml PO [id number] PRN Cough 08/26/23 07/25/24 History oral syrup clindamycin HCl 150 mg capsule 150 mg PO Q8H 07/25/24 07/25/24 History Allergies Allergy/AdvReac Type Severity Reaction Status Date / Time No Known Allergies Allergy Verified 06/25/24 13:52 Visit Medications Acetaminophen (Acetaminophen 325 Mg Tablet) 650 mg PO Q6H PRN PRN Reason: Fever >100.4 or Pain 1-3 Stop: 08/24/24 04:31 Heparin Sodium (Porcine) (Heparin Sod Inj 5000 Unit/Ml Vial) 5,000 unit SC Q12HR [facility] Stop: 08/08/24 08:59 Lactated Ringer's (Lactated Ringers) 1,000 mls @ 125 mls/hr IV .Q8H [facility] Stop: 07/25/24 20:37 Ondansetron HCl (Ondansetron Inj 2 Mg/Ml Inj 2 Ml) 4 mg IVP Q6H PRN; Protocol PRN Reason: NAUSEA OR VOMITING Stop: 08/24/24 04:31 Pharmacy Consult (Vancomycin Pharmacy To Dose 1 Each Each) 1 each IV QDAY [facility] Stop: 08/24/24 08:59 Discontinued Medications Sodium Chloride (Ns) 1,000 mls @ 999 mls/hr IV .Q1H1M ONE Stop: 07/24/24 22:22 Last Infusion: 07/25/24 00:59 Dose: Infused Sodium Chloride (Ns) 1,000 mls @ 999 mls/hr IV .Q1H1M ONE Stop: 07/25/24 02:52 Last Infusion: 07/25/24 03:13 Dose: Infused Sodium Chloride (Ns) 500 mls @ 999 mls/hr IV .Q31M ONE Stop: 07/25/24 04:13 Last Infusion: 07/25/24 04:21 Dose: Infused Clindamycin/Sodium Chloride (Cleocin/Ns Ivpb) 600 mg in 50 mls @ 100 mls/hr IV X1 ONE Stop: 07/25/24 04:19 Last Infusion: 07/25/24 04:31 Dose: Infused Ketorolac Tromethamine (Ketorolac Inj 30 Mg/Ml Vial) 15 mg IVP X1 ONE Stop: 07/24/24 21:23 Last Admin: 07/24/24 23:46 Dose: 15 mg Assessment & Plan Plan 53-year-old male with past medical history of L-sided hemorrhagic stroke s/p parietal lobectomy, aphasia, R hemiplegia, and neurogenic bladder as residual deficits, urinary retention s/p chronic suprapubic catheter, seizures, recurrent UTIs, BPH, nephrolithiasis, L above-knee amputation, depression, and anxiety who presented to the ED on 07/25/2024 with symptoms of fever and chills after returning from appointment at [facility] to exchange his suprapubic [place] catheter was admitted for further management of UTI. #UTI, possibly MRSA #History of neurogenic bladder s/p suprapubic catheter #History of recurrent UTIs Patient had chief complaint of fever and chills following suprapubic catheter exchange today. In the past, patient urine cultures had been found with Pseudomonas and MRSA. Patient gets frequent infections due to chronic suprapubic catheter. UA was positive for leukocyte esterase however showed no bacteria. Patient was previously evaluated by [facility] at home, noted to have erythema and had culture taken of suprapubic site on 07/16, growing MRSA, subsequently started on clindamycin 300 mg TID on 07/22. Examination of the site shows purulent output, but no skin erythema and no tenderness to palpation. Patient does not have any CVA or abdominal pain. -Started vancomycin, pharmacy to dose -IV fluids -Urine culture pending -Blood cultures pending -Acetaminophen as needed for fever or pain -Zofran as needed for nausea -Consider Urology consultation regarding suprapubic cath management #History of CVA #History of seizures #History of anxiety #History of depression #History of BPH -Resumed home medications DVT prophylaxis: Heparin 5,000 U subQ GI prophylaxis: Not indicated Diet: Cardiac [place]: Suprapubic catheter [07/24- ] Lines: Peripheral IV Antibiotics: Vancomycin [07/25- ] CODE STATUS: FULL Reason for hospitalization: UTI Patient plan of care was discussed with the attending physician, Dr. Metzger. Brianna Love, PGY-2 Attending Provider Attestation/Addendum I have examined the patient, reviewed labs and imaging findings, discussed the case with the resident(s), and reviewed entered orders. I agree with the plan of care as outlined in this note, with these additional summaries/recommendations: 53-year-old male with past medical history of neurogenic bladder status post suprapubic catheter placement presented to the ED after recently having his suprapubic catheter changed at tertiary [facility] and subsequently developing fevers chills and purulent discharge around catheter site. Outpatient cultures from site returned positive for MRSA and patient started on p.o. clindamycin. She continued developed fevers and chills and presented to the ED for further management. Labs showed leukocytosis with white count of 11, urine WBCs and RBCs, sodium 147, tachycardia 104, borderline blood pressure at 1 point of 89/58. Patient will be admitted and placed on IV vancomycin and empiric Zosyn, blood cultures taken. Wade Metzger MD
[2024-07-25] MEDS: RINGERS LACTATED 1000 ML 1,000 ML 125 ML IV ×2 (04:52→16:18)
[2024-07-25 05:05] LABS: Basophils # (Auto) 0.1 Thou/mm3 (0.0-0.2); Basophils % (Auto) 1 % (0-2.5); Eosinophils # (Auto) 0.1 Thou/mm3 (0.0-0.5); Eosinophils % (Auto) 1 % (0-10); Hematocrit 31.8 % (41.0-53.0); Immature Granulocytes % (Auto) 1 % (0-0); Immature Granulocytes Auto 0.04 Thou/mm3 (0.00-0.00); Lymphocytes # (Auto) 2.6 Thou/mm3 (1.0-4.8); Lymphocytes % (Auto) 31 % (10-50); Mean Corpuscular HGB Conc 31.4 g/dl (31.0-37.0); Mean Corpuscular Hemoglobin 24.3 pg (25.0-35.0); Mean Corpuscular Volume 77 fL (80-100); Monocytes # (Auto) 0.9 Thou/mm3 (0.0-0.8); Monocytes % (Auto) 11 % (0-12); Neutrophils # (Auto) 4.8 Thou/mm3 (1.8-7.7); Neutrophils % (Auto) 57 % (37-80); Nucleated Red Blood Cell % 0 /100 WBC (0); Platelet Count 138 Thou/mm3 (140-440); RDW Standard Deviation 41.1 fL (35.1-43.9); Red Blood Count 4.11 Miln/mm3 (4.50-5.90); White Blood Count 8.5 Thou/mm3 (3.8-10.6)
--- NOTE | 2024-07-25 05:27 | PC.NURSE ---
called pharmacy as pain scale updated for [place]
[2024-07-25 05:30] LABS: Alanine Aminotransferase 18 U/L (10-49); Albumin, Serum 3.5 gm/dL (3.5-5.0); Albumin/Globulin Ratio 1.4 (1.2-2.2); Alkaline Phosphatase 91 U/L (46-116); Anion Gap 7 (7-16); Aspartate Amino Transferase 15 U/L (0-34); BUN/Creatinine Ratio 21 Ratio (12-20); Bilirubin,Total 0.4 mg/dL (0.3-1.2); Blood Urea Nitrogen 19 mg/dL (9-23); Calcium 7.7 mg/dL (8.3-10.6); Calcium (Corrected) 8.1 mg/dL (8.5-10.1); Carbon Dioxide 25.7 mMol/L (20.0-31.0); Chloride 114 mMol/L (98-107); Creatinine (Component) 0.9 mg/dL (0.6-1.3); Estimated Creatinine Clearance 121.1 mL/min (>60); Globulin 2.5 gm/dL (2.3-3.5); Glucose 109 mg/dL (74-106); Magnesium 1.5 mg/dL (1.6-2.6); Osmolality,Calculated 295 (275-295); Phosphorous 3.1 mg/dL (2.4-5.1); Potassium 3.8 mMol/L (3.4-5.1); Sodium 147 mMol/L (136-145); eGFR > 60 See Note
[2024-07-25] MEDS: HYDROcodone/APAP 5/325 TABLET 2 TAB PO (05:38)
[2024-07-25] MEDS: VANCOMYCIN/D5W 1,250 MG IVPB 250 ML 120 MG IV (06:51)
[2024-07-25] MEDS: MIDODRINE 5 MG TABLET 10 MG PO ×2 (08:22→20:52)
[2024-07-25] MEDS: TAMSULOSIN HCL 0.4 MG CAPSULE PO (08:22)
[2024-07-25] MEDS: PREGABALIN 75 MG CAPSULE PO ×2 (08:22→20:52)
[2024-07-25] MEDS: HEPARIN SOD INJ 5000 UNIT/ML VIAL SC ×2 (08:22→20:53)
[2024-07-25] MEDS: ATORVASTATIN CALCIUM 20 MG TABLET PO (08:22)
--- NOTE | 2024-07-25 08:38 | PD.RESPRO ---
Documentation for date of: 07/25/24 Subjective Subjective Interval history: Patient seen today at the bedside found awake, alert. He is complaining of some abdominal pain lidocaine patch added. Vitals and labs reviewed. Suprapubic catheter examined noted some purulent discharge. states improvement in presenting symptoms states suprapubic catheter site redness has improved and swelling as well.Ordered CT abdomen pelvis with contrast to evaluate for possible abscess however patient is hard stick unable to have IV access for IV contrast, reordered CT scan without contrast to evaluate for possible abscess. Exam Vital Signs Temp Pulse Resp BP Pulse Ox O2 Del Method 97.1 F 69 18 93/64 99 Room Air 07/25/24 08:00 07/25/24 08:22 07/25/24 08:00 07/25/24 08:22 07/25/24 08:00 07/25/24 08:00 Narrative Exam Physical Exam General: Awake and in no acute distress. Moderate aphasia but non-toxic appearing. HEENT: Normocephalic, atraumatic, mucous membranes moist. Heart: Regular rate and rhythm, normal S1 and S2, no murmurs. Lungs: Clear to auscultation with no wheezing or crackles. Abdomen: Soft, obese, nondistended, nontender, positive bowel sounds. ?No guarding or rebound tenderness. : Suprapubic catheter in place with mild davis-yellow purulent opaque discharge exiting stoma. Minimal amount of sediment in tubing, clear yellow urine in bag. Neurologic: Alert and oriented x3, total right hemiparesis, able to move left arm, sensations intact abdomen/suprapubic site. Extremities: No edema. Skin: No rash or ecchymoses. Objective Labs 07/26/24 04:45 07/26/24 04:45 Labs: Laboratory Results - last 24 hr 07/24/24 07/24/24 07/25/24 21:33 23:46 03:30 WBC 11.4 H RBC 4.98 Hgb 12.1 L Hct 37.4 L MCV 75 L MCH 24.3 L MCHC 32.4 RDW Std Deviation 39.7 Plt Count 198 D Neut % (Auto) 77 Lymph % (Auto) 16 [place] % (Auto) 6 Eos % (Auto) 0 Baso % (Auto) 1 Neut # (Auto) 8.8 H Lymph # (Auto) 1.8 [place] # (Auto) 0.7 Eos # (Auto) 0.1 Baso # (Auto) 0.1 Immature Gran # (Auto) 0.06 H Absolute Nucleated RBC 0.00 Immature Gran % 1 H Nucleated RBC % 0 Sodium 142 Potassium 4.0 Chloride 108 H Carbon Dioxide 22.3 Anion Gap 12 BUN 16 Creatinine 1.1 Estim Creat Clear Calc 99.1 eGFR > 60 BUN/Creatinine Ratio 15 Glucose 197 H Calculated Osmolality 289 Lactic Acid 2.4 H 0.9 Calcium 8.9 Corrected Calcium 8.9 Phosphorus Magnesium Total Bilirubin 0.4 AST 21 ALT 26 Alkaline Phosphatase 118 H Total Protein 7.4 Albumin 4.2 Globulin 3.2 Albumin/Globulin Ratio 1.3 Procalcitonin 0.08 Ur Collection Type Catheter Urine Color Yellow Urine Clarity Turbid A Urine pH 6.0 Ur Specific [place] 1.026 Urine Protein 1+ A Urine Glucose (UA) Negative Urine Ketones Negative Urine Blood 3+ A Urine Nitrite Positive Urine Bilirubin Negative Urine Urobilinogen (Auto) Negative Ur Leukocyte Esterase Positive Urine RBC 285 H Urine WBC 346 H Ur Squamous Epith Cells 0 Calcium Oxalate Crystal 1+ A Urine Bacteria None 07/25/24 04:49 WBC 8.5 RBC 4.11 L Hgb 10.0 L D Hct 31.8 L MCV 77 L MCH 24.3 L MCHC 31.4 RDW Std Deviation 41.1 Plt Count 138 L D Neut % (Auto) 57 Lymph % (Auto) 31 [place] % (Auto) 11 Eos % (Auto) 1 Baso % (Auto) 1 Neut # (Auto) 4.8 Lymph # (Auto) 2.6 [place] # (Auto) 0.9 H Eos # (Auto) 0.1 Baso # (Auto) 0.1 Immature Gran # (Auto) 0.04 H Absolute Nucleated RBC 0.00 Immature Gran % 1 H Nucleated RBC % 0 Sodium 147 H Potassium 3.8 Chloride 114 H Carbon Dioxide 25.7 Anion Gap 7 BUN 19 Creatinine 0.9 Estim Creat Clear Calc 121.1 eGFR > 60 BUN/Creatinine Ratio 21 H Glucose 109 H D Calculated Osmolality 295 Lactic Acid Calcium 7.7 L Corrected Calcium 8.1 L Phosphorus 3.1 Magnesium 1.5 L Total Bilirubin 0.4 AST 15 ALT 18 Alkaline Phosphatase 91 D Total Protein 6.0 Albumin 3.5 D Globulin 2.5 Albumin/Globulin Ratio 1.4 Procalcitonin Ur Collection Type Urine Color Urine Clarity Urine pH Ur Specific [place] Urine Protein Urine Glucose (UA) Urine Ketones Urine Blood Urine Nitrite Urine Bilirubin Urine Urobilinogen (Auto) Ur Leukocyte Esterase Urine RBC Urine WBC Ur Squamous Epith Cells Calcium Oxalate Crystal Urine Bacteria Quality Measures Quality Measures none Assessment & Plan Assessment Current Active Medications: Generic Name Dose Route Start Last Admin Trade Name Freq PRN Reason Stop Dose Admin Acetaminophen 650 mg 07/25/24 04:32 Acetaminophen 325 Mg Tablet PO 08/24/24 04:31 Q6H PRN Fever >100.4 or Pain 1-3 Hydrocodone Bitart/Acetaminophen 2 tab 07/25/24 05:07 07/25/24 05:38 Hydrocodone/Apap 5/325 Tablet PO 07/30/24 04:55 2 tab Q8H PRN Administration PAIN SCALE 4-10(Mod-Sev Atorvastatin Calcium 20 mg 07/25/24 09:00 07/25/24 08:22 Atorvastatin Calcium 20 Mg Tablet PO 08/24/24 08:59 20 mg QDAY ANTONIO Administration Duloxetine HCl 60 mg 07/25/24 21:00 Duloxetine Hcl 30 Mg Capsule PO 08/24/24 20:59 QPM ANTONIO Heparin Sodium (Porcine) 5,000 unit 07/25/24 09:00 07/25/24 08:22 Heparin Sod Inj 5000 Unit/Ml Vial SC 08/08/24 08:59 5,000 unit Q12HR ANTONIO Administration Lactated Ringer's 1,000 mls @ 125 mls/hr 07/25/24 04:38 07/25/24 04:52 Lactated Ringers IV 07/25/24 20:37 125 mls/hr .Q8H ANTONIO Administration Vancomycin HCl/Dextrose 250 mls @ 120 mls/hr 07/25/24 06:45 07/25/24 06:51 Vancomycin/D5w 1,250 Mg Ivpb IV 07/25/24 08:49 120 mls/hr X1 ONE Administration Vancomycin HCl 250 mls @ 120 mls/hr 07/25/24 14:00 Vancomycin/Water 1250 Mg Ivpb IV 08/01/24 13:59 Q8HR ANTONIO Protocol Magnesium Sulfate 4 gm in 50 mls @ 12.5 mls/hr 07/25/24 08:30 Magnesium Sulfate Ivpb IV 07/25/24 12:29 X1 ONE Midodrine 10 mg 07/25/24 09:00 07/25/24 08:22 Midodrine 5 Mg Tablet PO 08/24/24 08:59 10 mg BID ANTONIO Administration Non-Formulary Medication 800 mg 07/25/24 21:00 Eslicarbazepine [Aptiom] PO 08/24/24 20:59 HS ANTONIO Ondansetron HCl 4 mg 07/25/24 04:32 Ondansetron Inj 2 Mg/Ml Inj 2 Ml IVP 08/24/24 04:31 Q6H PRN NAUSEA OR VOMITING Protocol Pharmacy Consult 1 each 07/25/24 09:00 Vancomycin Pharmacy To Dose 1 Each Each IV 08/24/24 08:59 QDAY PRN PROTOCOL Pregabalin 75 mg 07/25/24 09:00 07/25/24 08:22 Pregabalin 75 Mg Capsule PO 08/24/24 08:59 75 mg BID ANTONIO Administration Ropinirole HCl 1 mg 07/25/24 21:00 Ropinirole Hcl 1 Mg Tablet PO 08/24/24 20:59 QPM ANTONIO Tamsulosin HCl 0.4 mg 07/25/24 09:00 07/25/24 08:22 Tamsulosin Hcl 0.4 Mg Capsule PO 08/24/24 08:59 0.4 mg QDAY ANTONIO Administration Plan 53-year-old male with past medical history of L-sided hemorrhagic stroke s/p parietal lobectomy, aphasia, R hemiplegia, and neurogenic bladder as residual deficits, urinary retention s/p chronic suprapubic catheter, seizures, recurrent UTIs, BPH, nephrolithiasis, L above-knee amputation, depression, and anxiety who presented to the ED on 07/25/2024 with symptoms of fever and chills after returning from appointment at [facility] to exchange his suprapubic [place] catheter was admitted for further management of UTI. #Cellulitis of suprapubic catheter site #UTI, possibly MRSA #History of neurogenic bladder s/p suprapubic catheter #History of recurrent UTIs Patient had chief complaint of fever and chills following suprapubic catheter exchange today. In the past, patient urine cultures had been found with Pseudomonas and MRSA. Patient gets frequent infections due to chronic suprapubic catheter. UA was positive for leukocyte esterase however showed no bacteria. Patient was previously evaluated by [facility] at home, noted to have erythema and had culture taken of suprapubic site on 07/16, growing MRSA, subsequently started on clindamycin 300 mg TID on 07/22. Examination of the site shows purulent output, but no skin erythema and no tenderness to palpation. Patient does not have any CVA or abdominal pain. -on vancomycin + zosyn -IV fluids -Urine culture pending -Blood cultures pending -Acetaminophen as needed for fever or pain -Zofran as needed for nausea -Consider Urology consultation regarding suprapubic cath management #History of CVA #History of seizures #History of anxiety #History of depression #History of BPH -Resumed home medications Disposition: medtele Fluids: LR Feeding: Cardiac diet Thrombo prophylaxis: heparin Gastric Ulcer prophylaxis: not indicated CODE STATUS: Full code Case discussed with my attending Dr. Agustina Higgins MD PGY-1 Attending Provider Attestation/Addendum Faye Gonzalez DO, attest that I was physically present for the [place] portions of the service and evaluated the patient with the resident and I reviewed and discussed the case with the resident and agree with the resident's findings and plans of care as documented above Patient seen and eval this a.m. Patient appears to be at baseline mental status and reports mild discomfort at the site of his suprapubic catheter. Per daughter at bedside, patient immediately started feeling unwell after coming back from [facility] and having his suprapubic catheter exchanged. He had erythema in the surrounding region of his catheter with purulent discharge. The erythema has reportedly improved. There is some purulence in the surrounding region of the catheter site. No fluctuance noted. Will obtain a CT scan to rule out any abscesses. Will continue with IV antibiotics and follow-up with cultures at this time. Patient has otherwise been afebrile at this time. Continue with broad-spectrum antibiotics.
[2024-07-25] MEDS: PIPER/TAZO 3.375 GM PREMIX 3.375 GM/50 ML BAG IV ×3 (09:52→23:26)
[2024-07-25] MEDS: Magnesium Sulfate 4 GM Ivpb 4 GM/50 ML BAG IV (10:21)
[2024-07-25] MEDS: VANCOMYCIN/WATER 1250 MG IVPB 250 ML 120 MG IV ×2 (13:24→20:59)
--- NOTE | 2024-07-25 15:16 | XR_ITS ---
Examination: CT abdomen and pelvis without contrast. Coronal 3-D reconstructions. Sagittal 2-D reconstructions. Date and time of exam:July 25, 2024 1543 hrs. Comparison June 24, 2024 Indications: History right ureteral stent with multiple right ureteral calculi on CT stone study June 24, 2024 CTDI: vol (mGy): 16.5 DLP: (mGycm): 991 Technique: Axial images of the abdomen have been obtained, 3 mm slice thickness Intravenous contrast material has not been administered. Low dose protocols were performed. One or more of the following dose reduction techniques were used; automated exposure control, adjustment of the mA and/or KV according to patient size, use of iterative reconstruction technique. Findings: No focal liver lesions Mild splenomegaly Small stone in the gallbladder neck No extrahepatic Tract dilatation No pancreatic or adrenal mass Bilateral significant renal cortical thinning Multiple right renal calculi, the largest 6 mm No renal abscess Mild right hydronephrosis with significant thickening of urinary bladder wall, suprapubic cystostomy tube in satisfactory position No bowel obstruction Impression: Mild right hydronephrosis wall thickening right pelvicalyceal system and proximal ureter, probably nephritis pattern with probable vesicoureteral reflux No ureteral calculi Cystitis pattern
[2024-07-25] MEDS: KETOROLAC INJ 30 MG/ML VIAL 15 MG IVP (15:27)
[2024-07-25] MEDS: DULoxetine HCL 30 MG CAPSULE 60 MG PO (20:52)
[2024-07-25] MEDS: rOPINIRole HCL 1 MG TABLET PO (20:52)
[2024-07-25] MEDS: ESLICARBAZEPINE 800 MG PO (20:54)
[2024-07-26] VITALS (9 sets, daily range): BP systolic 102–140; BP diastolic 59–78; PULSE 65–97; RESP 16–96; TEMP 36.1–36.6; O2SAT 96–99
[2024-07-26] MEDS: VANCOMYCIN/WATER 1250 MG IVPB 250 ML 120 MG IV (05:03)
[2024-07-26 05:32] LABS: Basophils % (Auto) 1 % (0-2.5); Eosinophils # (Auto) 0.1 Thou/mm3 (0.0-0.5); Eosinophils % (Auto) 3 % (0-10); Hematocrit 28.6 % (41.0-53.0); Hemoglobin 8.9 g/dL (13.5-16.0); Immature Granulocytes % (Auto) 1 % (0-0); Immature Granulocytes Auto 0.03 Thou/mm3 (0.00-0.00); Lymphocytes # (Auto) 0.9 Thou/mm3 (1.0-4.8); Lymphocytes % (Auto) 22 % (10-50); Mean Corpuscular HGB Conc 31.1 g/dl (31.0-37.0); Mean Corpuscular Hemoglobin 24.1 pg (25.0-35.0); Mean Corpuscular Volume 77 fL (80-100); Monocytes # (Auto) 0.4 Thou/mm3 (0.0-0.8); Monocytes % (Auto) 10 % (0-12); Neutrophils # (Auto) 2.7 Thou/mm3 (1.8-7.7); Neutrophils % (Auto) 64 % (37-80); Nucleated Red Blood Cell % 0 /100 WBC (0); Platelet Count 93 Thou/mm3 (140-440); White Blood Count 4.2 Thou/mm3 (3.8-10.6)
[2024-07-26 05:53] LABS: Alanine Aminotransferase 19 U/L (10-49); Albumin, Serum 3.3 gm/dL (3.5-5.0); Albumin/Globulin Ratio 1.4 (1.2-2.2); Alkaline Phosphatase 84 U/L (46-116); Anion Gap 7 (7-16); Aspartate Amino Transferase 20 U/L (0-34); BUN/Creatinine Ratio 17 Ratio (12-20); Bilirubin,Total 0.6 mg/dL (0.3-1.2); Blood Urea Nitrogen 15 mg/dL (9-23); Calcium (Corrected) 8.6 mg/dL (8.5-10.1); Carbon Dioxide 26.8 mMol/L (20.0-31.0); Chloride 110 mMol/L (98-107); Creatinine (Component) 0.9 mg/dL (0.6-1.3); Estimated Creatinine Clearance 118.6 mL/min (>60); Globulin 2.4 gm/dL (2.3-3.5); Glucose 122 mg/dL (74-106); Magnesium 1.8 mg/dL (1.6-2.6); Osmolality,Calculated 288 (275-295); Potassium 4.2 mMol/L (3.4-5.1); Sodium 144 mMol/L (136-145); Total Protein 5.7 gm/dL (5.7-8.2); Vancomycin,Trough 26.4 mcg/mL (5.0-10.0); eGFR > 60 See Note
[2024-07-26] MEDS: PIPER/TAZO 3.375 GM PREMIX 3.375 GM/50 ML BAG IV (06:32)
[2024-07-26] MEDS: PREGABALIN 75 MG CAPSULE PO ×2 (08:02→22:10)
[2024-07-26] MEDS: ATORVASTATIN CALCIUM 20 MG TABLET PO (08:02)
[2024-07-26] MEDS: MIDODRINE 5 MG TABLET 10 MG PO ×2 (08:02→22:10)
[2024-07-26] MEDS: TAMSULOSIN HCL 0.4 MG CAPSULE PO (08:02)
[2024-07-26] MEDS: HEPARIN SOD INJ 5000 UNIT/ML VIAL SC ×2 (08:03→22:11)
[2024-07-26] MEDS: FERROUS SULF 325 MG TABLET PO (08:54)
--- NOTE | 2024-07-26 14:10 | ESPR_ITS ---
Documentation for date of: 07/26/24 Subjective Subjective Interval history: Patient seen today at the bedside found awake, alert, orientedx3. No overnight events reported. States no active complaints at this time and improvement in pain. Vital signs stable at this time. Antibiotic therapy switched to bactrim. Likely discharge in the next 24-48 hours. Exam Vital Signs Temp Pulse Resp BP Pulse Ox O2 Del Method 97.8 F 85 17 102/63 96 Room Air 07/26/24 12:00 07/26/24 12:00 07/26/24 12:00 07/26/24 12:00 07/26/24 12:00 07/26/24 12:00 Narrative Exam Physical Exam GENERAL: NAD, awake and alert, slow speaking HEENT: Moist mucosa. Eyes open, symmetrical, & clear CARDIO: Heart RRR, no obvious murmurs PULM: No noted coughing/dyspnea CTA B/L, no R/W/R GI: Abdomen soft, nondistended, no pain on palpation. BSx4 : suprapubic catheter in place SKIN/MSK/EXT: no pain on palpation. Pedal pulses present B/L NEURO: Alert and oriented x3, total right hemiparesis, able to move left arm, sensations intact abdomen/suprapubic site. Objective Labs 07/26/24 04:45 07/26/24 04:45 Labs: Laboratory Results - last 24 hr 07/26/24 04:45 WBC 4.2 D RBC 3.70 L Hgb 8.9 L Hct 28.6 L MCV 77 L MCH 24.1 L MCHC 31.1 RDW Std Deviation 41.0 Plt Count 93 L D Neut % (Auto) 64 Lymph % (Auto) 22 [place] % (Auto) 10 Eos % (Auto) 3 Baso % (Auto) 1 Neut # (Auto) 2.7 Lymph # (Auto) 0.9 L [place] # (Auto) 0.4 Eos # (Auto) 0.1 Baso # (Auto) 0.0 Immature Gran # (Auto) 0.03 H Absolute Nucleated RBC 0.00 Immature Gran % 1 H Nucleated RBC % 0 Sodium 144 Potassium 4.2 Chloride 110 H Carbon Dioxide 26.8 Anion Gap 7 BUN 15 Creatinine 0.9 Estim Creat Clear Calc 118.6 eGFR > 60 BUN/Creatinine Ratio 17 Glucose 122 H Calculated Osmolality 288 Calcium 8.0 L Corrected Calcium 8.6 Phosphorus 3.0 Magnesium 1.8 Total Bilirubin 0.6 AST 20 ALT 19 Alkaline Phosphatase 84 Total Protein 5.7 Albumin 3.3 L Globulin 2.4 Albumin/Globulin Ratio 1.4 Vancomycin Trough 26.4 H* Quality Measures Quality Measures none Assessment & Plan Assessment Current Active Medications: Generic Name Dose Route Start Last Admin Trade Name Freq PRN Reason Stop Dose Admin Acetaminophen 650 mg 07/25/24 04:32 Acetaminophen 325 Mg Tablet PO 08/24/24 04:31 Q6H PRN Fever >100.4 or Pain 1-3 Hydrocodone Bitart/Acetaminophen 2 tab 07/25/24 05:07 07/25/24 05:38 Hydrocodone/Apap 5/325 Tablet PO 07/30/24 04:55 2 tab Q8H PRN Administration PAIN SCALE 4-10(Mod-Sev Atorvastatin Calcium 40 mg 07/26/24 21:00 Atorvastatin Calcium 20 Mg Tablet PO 08/25/24 20:59 HS ANTONIO Eslicarbazepine [ 0 ea 07/25/24 21:00 07/25/24 20:54 Aptiom] 800 Mg PO 08/24/24 20:59 1 tablet Tablet HS ANTONIO Administration Duloxetine HCl 60 mg 07/25/24 21:00 07/25/24 20:52 Duloxetine Hcl 30 Mg Capsule PO 08/24/24 20:59 60 mg QPM ANTONIO Administration Ferrous Sulfate 325 mg 07/26/24 08:30 07/26/24 11:17 Ferrous Sulf 325 Mg Tablet PO 08/25/24 08:29 Not Given QOD ANTONIO Heparin Sodium (Porcine) 5,000 unit 07/25/24 09:00 07/26/24 08:03 Heparin Sod Inj 5000 Unit/Ml Vial SC 08/08/24 08:59 5,000 unit Q12HR ANTONIO Administration Midodrine 10 mg 07/25/24 09:00 07/26/24 08:02 Midodrine 5 Mg Tablet PO 08/24/24 08:59 10 mg BID ANTONIO Administration Ondansetron HCl 4 mg 07/25/24 04:32 Ondansetron Inj 2 Mg/Ml Inj 2 Ml IVP 08/24/24 04:31 Q6H PRN NAUSEA OR VOMITING Protocol Pregabalin 75 mg 07/25/24 09:00 07/26/24 08:02 Pregabalin 75 Mg Capsule PO 08/24/24 08:59 75 mg BID ANTONIO Administration Ropinirole HCl 1 mg 07/25/24 21:00 07/25/24 20:52 Ropinirole Hcl 1 Mg Tablet PO 08/24/24 20:59 1 mg QPM ANTONIO Administration Tamsulosin HCl 0.4 mg 07/25/24 09:00 07/26/24 08:02 Tamsulosin Hcl 0.4 Mg Capsule PO 08/24/24 08:59 0.4 mg QDAY ANTONIO Administration Trimethoprim/Sulfamethoxazole 1 tab 07/26/24 21:00 Trimethoprim/Sulfa 160/800 Ds Tablet PO 08/02/24 20:59 BID ANTONIO Plan 53-year-old male with past medical history of L-sided hemorrhagic stroke s/p parietal lobectomy, aphasia, R hemiplegia, and neurogenic bladder as residual deficits, urinary retention s/p chronic suprapubic catheter, seizures, recurrent UTIs, BPH, nephrolithiasis, L above-knee amputation, depression, and anxiety who presented to the ED on 07/25/2024 with symptoms of fever and chills after returning from appointment at [facility] to exchange his suprapubic [place] catheter was admitted for further management of UTI. #Cellulitis of suprapubic catheter site #UTI, possibly MRSA #History of neurogenic bladder s/p suprapubic catheter #History of recurrent UTIs Patient had chief complaint of fever and chills following suprapubic catheter exchange today. In the past, patient urine cultures had been found with Pseudomonas and MRSA. Patient gets frequent infections due to chronic suprapubic catheter. UA was positive for leukocyte esterase however showed no bacteria. Patient was previously evaluated by MARK at home, noted to have erythema and had culture taken of suprapubic site on 07/16, growing MRSA, subsequently started on clindamycin 300 mg TID on 07/22. Examination of the site shows purulent output, but no skin erythema and no tenderness to palpation. Patient does not have any CVA or abdominal pain. Blood Cx negative in 24 hours -on bactrim (07/26- -IV fluids -Urine culture pending -Acetaminophen as needed for fever or pain -Zofran as needed for nausea #History of CVA #History of seizures #History of anxiety #History of depression #History of BPH -Resumed home medications Disposition: medtele Fluids: LR Feeding: Cardiac diet Thrombo prophylaxis: heparin Gastric Ulcer prophylaxis: not indicated CODE STATUS: Full code Case discussed with my attending Dr. Agustina Higgins MD PGY-1 Attending Provider Attestation/Addendum IFaye DO, attest that I was physically present for the holman portions of the service and evaluated the patient with the resident and I reviewed and discussed the case with the resident and agree with the resident's findings and plans of care as documented above Patient seen and eval this a.m. CT abdomen pelvis was done yesterday showing no evidence of abscess. Will continue with antibiotics at this time for cellulitis surrounding suprapubic catheter. There is minimal purulent drainage at this time and erythema has improved. Due to previous wound culture of the abdomen that was positive for MRSA, will continue MRSA coverage. Will switch from vancomycin to Bactrim. Cultures will be finalized this evening. If negative, patient can likely be discharged in the a.m. with Bactrim 7 days. at bedside and updated regarding current plan of care. All questions and concerns addressed at bedside.
[2024-07-26] MEDS: DULoxetine HCL 30 MG CAPSULE 60 MG PO (22:10)
[2024-07-26] MEDS: TRIMETHOPRIM/SULFA 160/800 DS TABLET 1 TAB PO (22:10)
[2024-07-26] MEDS: ATORVASTATIN CALCIUM 20 MG TABLET 40 MG PO (22:10)
[2024-07-26] MEDS: rOPINIRole HCL 1 MG TABLET PO (22:11)
[2024-07-26] MEDS: ESLICARBAZEPINE 800 MG PO (22:11)
[2024-07-27] VITALS: BP 123/82; PULSE 54; RESP 16; TEMP 36.1; O2SAT 99
[2024-07-27 00:25] VITALS: PULSE 65; RESP 16; RESP 97
[2024-07-27 04:00] VITALS: BP 114/73; PULSE 62; RESP 16; TEMP 36.1; O2SAT 98
[2024-07-27 06:40] LABS: Alanine Aminotransferase 22 U/L (10-49); Albumin, Serum 3.4 gm/dL (3.5-5.0); Albumin/Globulin Ratio 1.5 (1.2-2.2); Alkaline Phosphatase 75 U/L (46-116); Anion Gap 7 (7-16); Aspartate Amino Transferase 22 U/L (0-34); BUN/Creatinine Ratio 14 Ratio (12-20); Bilirubin,Total 0.3 mg/dL (0.3-1.2); Blood Urea Nitrogen 11 mg/dL (9-23); Calcium 8.4 mg/dL (8.3-10.6); Calcium (Corrected) 8.9 mg/dL (8.5-10.1); Carbon Dioxide 28.2 mMol/L (20.0-31.0); Chloride 109 mMol/L (98-107); Creatinine (Component) 0.8 mg/dL (0.6-1.3); Estimated Creatinine Clearance 133.4 mL/min (>60); Globulin 2.3 gm/dL (2.3-3.5); Glucose 105 mg/dL (74-106); Magnesium 1.8 mg/dL (1.6-2.6); Osmolality,Calculated 286 (275-295); Phosphorous 3.2 mg/dL (2.4-5.1); Sodium 144 mMol/L (136-145); Total Protein 5.7 gm/dL (5.7-8.2); eGFR > 60 See Note
[2024-07-27 06:44] LABS: Basophils % (Auto) 1 % (0-2.5); Eosinophils # (Auto) 0.3 Thou/mm3 (0.0-0.5); Eosinophils % (Auto) 7 % (0-10); Hematocrit 28.1 % (41.0-53.0); Immature Granulocytes % (Auto) 1 % (0-0); Immature Granulocytes Auto 0.03 Thou/mm3 (0.00-0.00); Lymphocytes # (Auto) 1.4 Thou/mm3 (1.0-4.8); Lymphocytes % (Auto) 39 % (10-50); Mean Corpuscular HGB Conc 31.3 g/dl (31.0-37.0); Mean Corpuscular Hemoglobin 24.4 pg (25.0-35.0); Mean Corpuscular Volume 78 fL (80-100); Monocytes # (Auto) 0.4 Thou/mm3 (0.0-0.8); Monocytes % (Auto) 11 % (0-12); Neutrophils # (Auto) 1.5 Thou/mm3 (1.8-7.7); Neutrophils % (Auto) 42 % (37-80); Nucleated Red Blood Cell % 0 /100 WBC (0); Platelet Count 101 Thou/mm3 (140-440); RDW Standard Deviation 40.6 fL (35.1-43.9); Red Blood Count 3.61 Miln/mm3 (4.50-5.90); White Blood Count 3.6 Thou/mm3 (3.8-10.6)
[2024-07-27 06:57] LABS: Hemoglobin 8.8 g/dL (13.5-16.0)
[2024-07-27 08:00] VITALS: BP 124/71; PULSE 73; RESP 18; TEMP 36.4; O2SAT 99
[2024-07-27 08:02] VITALS: BP 114/73; PULSE 62
[2024-07-27] MEDS: MIDODRINE 5 MG TABLET 10 MG PO (08:02)
[2024-07-27] MEDS: TRIMETHOPRIM/SULFA 160/800 DS TABLET 1 TAB PO (08:02)
[2024-07-27] MEDS: PREGABALIN 75 MG CAPSULE PO (08:02)
[2024-07-27] MEDS: HEPARIN SOD INJ 5000 UNIT/ML VIAL SC (08:02)
[2024-07-27] MEDS: TAMSULOSIN HCL 0.4 MG CAPSULE PO (08:02)
[2024-07-27 08:41] VITALS: PULSE 72; RESP 18; RESP 99
--- NOTE | 2024-07-27 11:47 | ESDS_ITS ---
<Statement entered by Faye Berrios DO - 07/28/24 09:49> I, Faye Berrios DO, attest that I was physically present for the holman portions of the service and evaluated the patient with the resident and I reviewed and discussed the case with the resident and agree with the resident's findings and plans of care as documented above Planned Discharge Date 07/27/24 DS: Providers Provider Date of admission: 07/25/24 04:32 Primary care physician: KENDRICK Ye Admitting Provider: Wade Metzger MD Attending Provider on Admission: Wade Metzger MD Consults: 07/25/24 05:05 Referral Wound Care Routine Comment: Attending Provider on DC: Faye Berrios DO Discharging Provider: Weston Varma MD DS: Diagnosis Discharge Diagnosis (1) History of suprapubic catheter: Status: Acute (2) Chronic UTI: Status: Acute Problem List Completed Was Problem List Reviewed/Reconciled?: Yes Hospital Course Hospital Course Hospital course: Hospital Course: Mr Young is a 53-year-old male with past medical history of L-sided hemorrhagic stroke s/p parietal lobectomy, aphasia, R hemiplegia, and neurogenic bladder as residual deficits, urinary retention s/p chronic suprapubic catheter, seizures, recurrent UTIs, BPH, nephrolithiasis, L above-knee amputation, depression, and anxiety who presented to the ED on 07/25/2024 with symptoms of fever and chills after returning from appointment at [facility] to exchange his suprapubic [place] catheter was admitted for further management of UTI. In the past, urine cultures had been found with Pseudomonas and MRSA. Patient gets frequent infections due to chronic suprapubic catheter. UA was positive for leukocyte esterase however showed no bacteria. Patient was previously evaluated by [facility] at home, noted to have erythema and had culture taken of suprapubic site on 07/16, growing MRSA, subsequently started on clindamycin 300 mg TID on 07/22. Examination of the site shows purulent output, but no skin erythema and no tenderness to palpation. Patient does not have any CVA or abdominal pain. Blood Cx negative in 24 hours. He was transitioned to PO Bactrim on 07/26. Urine cultures remain positive for Pseudomonas, likely colonized. He is being discharged with a 6 day course of bactrim to complete. Problems on this admission: - Cellulitis of suprapubic catheter site - UTI, possibly MRSA - History of neurogenic bladder s/p suprapubic catheter - History of recurrent UTIs - History of CVA - History of seizures - History of anxiety - History of depression - History of BPH Procedures: None Discharge instructions: - Follow up with PCP within 1 week of DC - Please take Bactrim 1 tablet twice a day for 6 more days to complete course - Continue all other home medications as prescribed - Return to ED if symptoms worsen We are grateful to be able to participate in Mr Young's care. We wish him the best. Plan of care discussed with attending Weston Sanchez M.D. PGY2 Disclaimer: Minor errors in infant teacher may be present as this note was dictated using voice recognition software. Status at Discharge Cognitive/behavioral status at discharge: Stable and returned to baseline. Time Spent with Patient Time attestation: Total time spent providing and/or coordinating discharge services: more than 50% Time spent: Greater than 30 minutes Exam Vital Signs Temp Pulse Resp BP Pulse Ox O2 Del Method 97.6 F 72 18 114/73 99 Room Air 07/27/24 08:00 07/27/24 08:41 07/27/24 08:41 07/27/24 08:02 07/27/24 08:00 07/27/24 08:00 Narrative Exam Physical Exam GENERAL: NAD, awake and alert, slow speaking HEENT: Moist mucosa. Eyes open, symmetrical, & clear CARDIO: Heart RRR, no obvious murmurs PULM: No noted coughing/dyspnea CTA B/L, no R/W/R GI: Abdomen soft, nondistended, no pain on palpation. BSx4 : suprapubic catheter in place SKIN/MSK/EXT: no pain on palpation. Pedal pulses present B/L NEURO: Alert and oriented x3, total right hemiparesis, able to move left arm, sensations intact abdomen/suprapubic site. Discharge Plan Plan Patient Disposition: HOME (Self Care) Patient condition on transfer: Stable Care Plan Goals: - Follow up with PCP within 1 week of DC - Please take Bactrim 1 tablet twice a day for 6 more days to complete course - Continue all other home medications as prescribed - Return to ED if symptoms worsen Prescriptions/Referrals Prescriptions/Med Rec: New sulfamethoxazole-trimethoprim 800-160 mg tablet 1 tab PO BID 6 Days Qty: 12 0RF Continued Aptiom 800 mg tablet 800 mg PO HS Patient Comments: TAKE 1 TABLET BY MOUTH EVERY DAY famotidine 20 mg Tablet 20 mg PO QDAY Qty: 30 0RF tamsulosin [Flomax] 0.4 mg capsule 0.4 mg PO QDAY Qty: 30 0RF promethazine-DM 6.25-15 mg/5 mL syrup 5 ml PO [id number] PRN (Reason: Cough) Patient Comments: TAKE 5 MLS BY MOUTH EVERY 6 HOURS NEEDED FOR COUGH hydrocodone-acetaminophen 5-325 mg tablet 2 tab PO Q8H MDD 6 PRN (Reason: pain) Qty: 20 0RF atorvastatin 20 mg tablet 20 mg PO QDAY Patient Comments: TAKE 1 TABLET BY MOUTH EVERY DAY duloxetine 30 mg capsule,delayed release(DR/EC) 60 mg PO QPM Patient Comments: TAKE 1 CAPSULE BY MOUTH EVERY DAY pregabalin 75 mg capsule 75 mg PO BID Patient Comments: TAKE 1 CAPSULE BY MOUTH TWICE A DAY ropinirole 1 mg tablet 1 mg PO QPM Patient Comments: TAKE 1 TABLET BY MOUTH AT BEDTIME midodrine 10 mg tablet 10 mg PO BID Patient Comments: TAKE 1 TABLET (10 MG) BY MOUTH TWICE A DAY HOLD IF BP SYSTOLIC OVER 120 Discontinued hydrocodone-acetaminophen 5-325 mg Tablet 1 tab PO Q6H PRN (Reason: Pain) Patient Comments: Per PRN clindamycin HCl 150 mg capsule 150 mg PO Q8H Patient Comments: TAKE 2 CAPSULE BY MOUTH EVERY 8 HOURS FOR 14 DAYS. Referrals: Edwige Sidhu FNP [Primary Care Provider] - Patient/Caregiver Discharge Instructions Meds to Beds: Yes Discharge Activity: resume usual activities Education Materials: Catheter-Linked Urinary Tract ..., When to Use Antibiotics Print Language: Namibian Stand Alone Forms: Janiec Award Info., Patient Portal Info Letter, Work/Release Restrictions Discharge Order Discharge Orders: Discharge (Routine); Ordered 07/27/24 Ordered By: Weston Varma Quality Discharge Quality Measures VTE prophylaxis
--- NOTE | 2024-07-27 16:12 | PC.SS ---
Kev Young is 53 year old male admitted to [facility] for UTI. SS conducted bedside contact with the patient to complete initial assessment and to discuss discharge planning.? SW used all precautionary measures to complete initial. Role and reason for the contact was explained to Kev. Pt is alert and oriented times 4. Pt gave verbal authorization for Roxanne Young, spouse, to be present and pt gave permission for him to stay. Patient confirmed demographic information and on facesheet and lives with family. Patient identifies Roxanne Young, spouse, as surrogate decision maker. Pt states prior to hospitalization he is unable to complete most ADL?s independently and his family assists. Pt has following DME Equipment wheelchair; walter lift, hospital bed, 3-1 commode. Pt does not use O2. Pt confirmed no history of mental health or substance abuse. Pts PCP is Dmitry Sidhu. Pharmacy of choice is [facility] [address]. Advance life directive discussed and pt not receptive. Discharge options discussed and the pt return home. Family will provide transportation upon DC. No further intervention required at this time, nursing home social worker would be available to address any further concerns. DC Plan: Home Contact: Roxanne Young, spouse, Address: Confirmed on face sheet PCP: Dmitry Sidhu
== END 2024-07-27 11:30 | disposition home or self-care (01) ==
LOC: SERX 07-25 02:56 → S3SX 07-27 07:44 → SERHOLD 07-28 09:28
PROVIDERS: Physician Assistant; Student in an Organized Health Care Education/Training Program; Admitting Provider Student in an Organized Health Care Education/Training Program; Emergency Provider Emergency Medicine; PCP Nurse Practitioner Family; Visit Provider Student in an Organized Health Care Education/Training Program
DX: T83.511A Infection and inflammatory reaction due to indwelling urethral catheter, initial encounter (principal); R47.01 Aphasia; N40.1 Benign prostatic hyperplasia with lower urinary tract symptoms; N39.0 Urinary tract infection, site not specified; N31.9 Neuromuscular dysfunction of bladder, unspecified; L03.311 Cellulitis of abdominal wall; Z79.899 Other long term (current) drug therapy; I69.251 Hemiplegia and hemiparesis following other nontraumatic intracranial hemorrhage affecting right dominant side; F41.9 Anxiety disorder, unspecified; Z87.440 Personal history of urinary (tract) infections; Z87.442 Personal history of urinary calculi; F32.A Depression, unspecified; E66.9 Obesity, unspecified; Z93.59 Other cystostomy status; Z89.512 Acquired absence of left leg below knee
CPT/HCPCS: 36415; 74176; 80053; 80202; 81001; 83605; 83735; 84100; 84145; 85025; 87040; 87077; 87081; 87086; 87186; 87811; 96361; 96365; 96366; 96372; 96375; 99285; G0378; J1644; J1885; J2543; J3370; J3372; J3475; J7030; J7040; J7120; S0077; A9270; J0737

== ENCOUNTER 2024-10-27 06:14 | Emergency (ER) | payer BC, SELFPAY ==
[2024-10-27 06:14] VITALS: BMI 35.9
[2024-10-27 06:39] VITALS: BP 122/81; PULSE 76; RESP 18; TEMP 36.5; O2SAT 96
[2024-10-27] MEDS: KETOROLAC INJ 30 MG/ML VIAL IM ×2 (07:36→09:47)
[2024-10-27] MEDS: HYDROcodone/APAP 5/325 TABLET 1 TAB PO (07:37)
[2024-10-27 08:47] LABS: Collection Type, Urine Catheter; Squamous Epithelial Cell,Urine 0 /hpf (0-5)
[2024-10-27 09:04] LABS: Bacteria,Urine 2+; Bilirubin,Urine Negative (Negative); Blood,Urine 3+ (Negative); Color,Urine Yellow (Lt Yel-Yel); Glucose, Urine Negative (Negative); Ketones,Urine Negative (Negative); Leukocyte Esterase,Urine Positive (Negative); Nitrite,Urine Positive (Negative); PH,Urine 6.0 (5.0-7.0); Protein,Urine 2+ (Neg - Trace); RBC,Urine 1285 /hpf (0-3); Specific Gravity,Urine 1.033 (1.001-1.035); Urobilinogen,Urine Negative mg/dL (0.0-1.0); WBC,Urine 585 /hpf (0-5)
[2024-10-27 09:09] LABS: Clarity,Urine Turbid (Clear/Hazy); Culture Indicated,Urine Yes
--- NOTE | 2024-10-27 09:38 | PD.EDMALE ---
ED Male Genitalurinary RME/HPI General Chief complaint: Urogenital-Male Stated complaint: POSS UTI Time Seen by Provider: 10/27/24 06:47 Arrival date/time: 10/27/24 06:14 53-year-old male well-known to me with chronic indwelling catheter presents to the emergency department today for complaints of dysuria Limitations: no limitations Related Data Home Medications ?Medication ?Instructions ?Recorded ?Confirmed atorvastatin 20 mg tablet 20 mg PO QDAY 12/26/21 07/25/24 duloxetine 30 mg capsule,delayed 60 mg PO QPM 12/26/21 07/25/24 release pregabalin 75 mg capsule 75 mg PO BID 12/26/21 07/25/24 eslicarbazepine 800 mg tablet 800 mg PO HS 07/24/23 07/25/24 (Aptiom) midodrine 10 mg tablet 10 mg PO BID 07/31/23 07/25/24 ropinirole 1 mg tablet 1 mg PO QPM 07/31/23 07/25/24 promethazine-DM 6.25 mg-15 mg/5 mL 5 ml PO [id number] PRN Cough 08/26/23 07/25/24 oral syrup Previous Rx's ?Medication ?Instructions ?Recorded famotidine 20 mg tablet 20 mg PO QDAY #30 tabs 09/27/22 tamsulosin 0.4 mg capsule (Flomax) 0.4 mg PO QDAY #30 caps 05/23/23 hydrocodone 5 mg-acetaminophen 325 2 tab PO Q8H PRN pain #20 tabs 05/10/24 mg tablet ciprofloxacin HCl 500 mg tablet 500 mg PO BID 7 days #14 tabs 10/27/24 ibuprofen 800 mg tablet 800 mg PO TID PRN pain #30 tabs 10/27/24 Allergies Allergy/AdvReac Type Severity Reaction Status Date / Time No Known Allergies Allergy Verified 06/25/24 13:52 Review of Systems Review of Systems Systems Reviewed: All systems reviewed, normal except as documented Constitutional Constitutional: Reports system reviewed and no additional complaints, except as documented, Denies fever(s) and Denies headache(s) Eyes Eyes: Reports system reviewed and no additional complaints, except as documented and Denies blurry vision ENT Ears, Nose, Mouth, and Throat: Reports system reviewed and no additional complaints, except as documented, Denies headache(s), Denies nasal congestion and Denies nasal discharge Cardiovascular Cardiovascular: Reports system reviewed and no additional complaints, except as documented, Denies chest pain and Denies dyspnea Respiratory Respiratory: Reports system reviewed and no additional complaints, except as documented, Denies chest congestion, Denies cough and Denies dyspnea Gastrointestinal Gastrointestinal: Reports system reviewed and no additional complaints, except as documented and Denies abdominal pain Genitourinary Genitourinary: Reports system reviewed and no additional complaints, except as documented and Reports other ([place] catheter in place, dysuria) Integumentary/Breasts Skin/Breast: Reports system reviewed and no additional complaints, except as documented and Denies rash Neurologic Neurologic: Reports system reviewed and no additional complaints, except as documented, Reports as per HPI and Denies headache(s) Past Medical History Past Medical History NEUROLOGIC: Positive Cerebrovascular Accident, Seizures and Paralysis; Negative Neurological Disorders, Transient Ischemic Attacks (TIA), Dementia, Alzheimer's Disease, Parkinson's Disease, Brain Tumor, Meningitis, Epilepsy, Multiple Sclerosis, Cerebral Palsy, Amyotrophic Lateral Sclerosis (ALS/Bronwyn Gehrig's), Guillain-[place] Syndrome, Spina Bifida, Peripheral Neuropathy, Rocha's Palsy, Subdural Hematoma, Migraine, Head Trauma, Spinal Cord Injury or Traumatic Brain Injury CARDIAC: Positive Hypotension; Negative Cardiac Disorders, Cardiac Arrhythmia, Atrial Fibrillation, Angina, Heart Murmur, Coronary Artery Disease, Atherosclerotic Heart Disease, Peripheral Vascular Disease, Hypercholesterolemia, Aneurysm, Congestive Heart Failure, Congenital Heart Disease, Valvular Heart Disease, Rheumatic Fever, Cardiomyopathy, Edema, Pericarditis, Cellulitis, Deep Vein Thrombosis, Hypertension or Varicose Veins RESPIRATORY: Negative Chronic Obstructive Pulmonary Disease (COPD), Asthma, Bronchitis, Emphysema, Pneumonia, Pulmonary Fibrosis, Tuberculosis, Pulmonary Embolism, Pulmonary Edema or Sleep Apnea GASTROINTESTINAL: Positive Gastrointestinal Disorders and Obesity; Negative Hepatitis, Cirrhosis, Pancreatitis, Celiac Disease, Gall Bladder Disease, Gastrointestinal Bleed, Esophageal Varices, Guadalupe's Esophagus, Colitis, Ulcerative Colitis, Diverticulitis, Diverticulosis, Ulcer, Colorectal Cancer, Irritable Bowel, Crohn's Disease, Obstructive Bowel, Hiatal Hernia, Hemorrhoids or Gastroesophageal Reflux Disease GENITOURINARY: Positive Genitourinary Disorders, Renal Disease and Kidney Stones; Negative Inguinal Hernia, Dialysis, Prostate Cancer or Benign Prostatic Hyperplasia REPRODUCTIVE: Negative Breast Cancer, Fibroids, Genital Herpes, Gonorrhea, Syphilis or Testicular Cancer MUSCULOSKELETAL: Positive Osteomyelitis; Negative Muscular Dystrophy, Myasthenia Gravis, Marfan's Syndrome, Bone Cancer, Arthritis, Rheumatoid Arthritis, Osteoporosis, Degenerative Disk Disease, Gout, Scoliosis, Carpal Tunnel Syndrome, Fibromyalgia, Fractures, Degenerative Joint Disease or Poliovirus ENT: Negative Cataracts, Glaucoma, Blind, Retinal Detachment, Macular Degeneration, Ear Infection, Deafness, Head Trauma or Eye Prosthesis ENDOCRINE: Negative Endocrine Disorders, Diabetes Mellitus Type 1, Diabetes Mellitus Type 2, Hypoglycemia, Emani's Syndrome, [place]'s Disease, Hyperthyroidism, Hypothyroidism, Parathyroid Disease, Pituitary Disease, Systemic Lupus Erythematosus, Syndrome of Inappropriate Antidiuretic Hormone (SIADH), Adrenal Disease or Graves' Disease HEMATOLOGIC: Negative Blood Disorders, Anemia, Leukemia, Hemophilia, Thalassemia, Sickle Cell Disease or Clotting Problems PSYCHO/SOCIAL: Positive Depression and Anxiety; Negative Psychiatric Problems, Schizophrenia, Recreational Drug Use, Bipolar Disorder, Behavior Problems, Self-Mutilation, Attention Deficit Disorder, Attention Deficit Hyperactivity Disorder, Depression, Post Traumatic Stress Disorder or Eating Disorder OTHER HISTORY: Positive Hospitalization, Shingles, MRSA and Chicken Pox; Negative Autoimmune Disease, Down Syndrome, Autism, Developmental Delay, Falls, Blood Transfusions, Blood Transfusion Reaction, Anesthesia Reactions, Organ Transplant, Chemotherapy, Radiation Therapy, Hyperbaric Therapy, VRSA, Vancomycin-Resistant Enterococci, Human Immunodeficiency Virus (HIV), Measles, Mumps, Rubella (Tamazight Measles), Pertussis, Clostridium Difficile, Cancer, Breast Cancer, Cervical Cancer, Colorectal Cancer, Lung Cancer, Ovarian Cancer, Prostate Cancer or Testicular Cancer Family History FAMILY HISTORY: Positive Family Surgery; Negative Family Psychiatric Problems, Family Respiratory Disorders, Family Cardiac Disorders, Family Gastrointestinal Problems, Family Cancer or Family Anesthesia Reaction Surgical History SURGICAL: Positive Amputation; Negative Cardiac Surgery, Open Heart Surgery, Coronary Artery Bypass Graft, Valve Replacement, Vascular Surgery, Coronary Stent, Cardiac Catheterization, Pacemaker, Angiogram, Auto Implanted Cardiovert Defib, Carotid Endarterectomy, Endocrine Surgery, Thyroidectomy, Ear Surgery, Tympanostomy Tube, Eye Surgery, Nose Surgery, Oral Surgery, Tonsillectomy, Adenoidectomy, Cochlear Implant, Corneal Transplant, Throat Surgery, Abdominal Surgery, Tracheostomy, Gastric Bypass Surgery, Gastrostomy, Bowel Surgery, Nephrectomy, Transurethral Resection, Joint Replacement, Open Reduction Internal Fixation, Arthroscopy, Neurologic Surgery, Brain Shunt, Mastectomy, Lumpectomy, Hysterectomy, Tubal Ligation, Section, Vasectomy or Organ Transplant Social History SMOKING STATUS: Never smoker SECOND HAND EXPOSURE: No SUBSTANCE USE: does not use ED Exam General Limitations: Present no limitations General appearance: Present alert and in no apparent distress Head Head exam: Present atraumatic, normocephalic and normal inspection Eye Eye exam: Present normal appearance, PERRL and EOMI; Absent conjunctival injection ENT ENT exam: Present normal exam, normal oropharynx and mucous membranes moist Neck Neck exam: Present normal inspection, full ROM and trachea midline Chest Chest inspection: Present normal inspection and symmetric chest wall rise Respiratory Respiratory exam: Present normal lung sounds bilaterally; Absent respiratory distress Cardiovascular Cardiovascular exam: Present regular rate, normal rhythm and normal heart sounds Abdominal Exam Abdominal exam: Present soft and normal bowel sounds; Absent distention, tenderness, guarding, rebound, rigidity, Baig's sign or tenderness at McBurney's Point Abdominal tenderness: Absent RUQ or RLQ Extremities Exam Extremities exam: Present normal inspection and full ROM Back Exam Back exam: Present normal inspection and full ROM Neurological Exam Neurological exam: Present alert, oriented X3 and CN II-XII intact Psychiatric Psychiatric exam: Present normal affect and normal mood Skin Skin exam: Present warm, dry, intact and normal color Course Quality Measures none Orders Category Date Time Status [place] [Urinary Catheter, Remove] NOW Care 10/27/24 06:46 Completed Murcia [Urinary Catheter] NOW Care 10/27/24 06:46 Completed [place] to Leg Bag NOW Care 10/27/24 06:46 Ordered UA, C/S IF [Urinalysis, C/S if Indicated] Stat Lab 10/27/24 08:30 Completed Urine Culture Stat Lab 10/27/24 08:30 Received HYDROcodone*/APAP 5/325 [[place] 5/325] Med 10/27/24 06:46 Discontinued 1 tab PO X1 ONE Ketorolac Inj [Toradol Inj] Med 10/27/24 06:46 Discontinued 30 mg IM X1 ONE Ketorolac Inj [Toradol Inj] Med 10/27/24 09:26 Discontinued 30 mg IM X1 ONE Lidocaine 1% 20 ml [Xylocaine 1% 20 ML] Med 10/27/24 09:32 Discontinued 2.1 ml INFL X1 ONE cefTRIAXone [Rocephin] Med 10/27/24 09:32 Discontinued 1,000 mg IM X1 ONE Vital Signs Vital signs: Vital Signs Temperature 97.7 F 10/27/24 06:39 Pulse Rate 76 10/27/24 06:39 Respiratory Rate 18 10/27/24 06:39 Blood Pressure 122/81 10/27/24 06:39 Pulse Oximetry (%) 96 10/27/24 06:39 Oxygen Delivery Method Room Air 10/27/24 06:39 o2 sat 96% r.a wnl Urogenital - Male MDM Narrative MDM Narrative:: 53-year-old male well-known to me with chronic indwelling catheter presents to the emergency department today for complaints of dysuria On exam patient well-appearing patient does not appear ill or toxic no acute distress Urinalysis obtained consistent with UTI patient has chronic UTIs Patient given Rocephin here as well as pain medication As patient is hemodynamically stable has no fever nausea or vomiting patient be discharged home at this time. Patient discharged home in no distress to follow-up with primary care doctor in the next 24 to 48 hours and for any worsening symptoms to return to the ER immediately Patient data External records reviewed:: [facility] previous records Clinical information provided by:: patient Social determinants that could affect healthcare access:: none Patient has the following chronic illnesses:: none How is presenting disease/condition affected by chronic disease/condition?: no chronic disease Evaluation data The following diagnostics were reviewed and interpreted by me:: lab results Lab and/or radiology exams considered but not ordered:: Lab obtained Interpretation Summary: Reviewed by me Medications / Prescriptions Medications or Prescriptions considered but not ordered:: Given Medication administrations:: Medication Administration History Discontinued Medications Hydrocodone Bitart/Acetaminophen (Hydrocodone/Apap 5/325 Tablet) 1 tab PO X1 ONE Stop: 10/27/24 06:47 Last Admin: 10/27/24 07:37 Dose: 1 tab Documented By: CHRISTOFER Ceftriaxone Sodium (Ceftriaxone Sod Inj 1,000 Mg Vial) 1,000 mg IM X1 ONE Stop: 10/27/24 09:33 Last Admin: 10/27/24 09:49 Dose: 1,000 mg Documented By: XIOMARA Ketorolac Tromethamine (Ketorolac Inj 30 Mg/Ml Vial) 30 mg IM X1 ONE Stop: 10/27/24 06:47 Last Admin: 10/27/24 07:36 Dose: 30 mg Documented By: CHRISTOFER Ketorolac Tromethamine (Ketorolac Inj 30 Mg/Ml Vial) 30 mg IM X1 ONE Stop: 10/27/24 09:27 Last Admin: 10/27/24 09:47 Dose: 30 mg Documented By: XIOMARA Lidocaine HCl (Lidocaine Hcl 1% 20 Ml Vial) 2.1 ml INFL X1 ONE Stop: 10/27/24 09:33 Last Admin: 10/27/24 09:49 Dose: 2.1 ml Documented By: XIOMARA given Consultations Consultation(s) initiated? (list below): No Diagnosis Urogenital Male Differential Diagnosis: acute retention of urine Most likely diagnosis given after review of the tests above:: UTI Admission Indicated Admission indicated?: not indicated Admission Request Was there a request for admission?: No Disposition Plan Disposition Plan: Discharge Discharge Attestation Discharge Attestation: The patient and all family members were given an opportunity to ask questions and understood the discharge instructions. Discharge instructions specifically effects, indications for sooner follow up or return to the emergency department, and the expected course of current diagnosis. Patient condition: Stable Discharge Plan Plan Patient Disposition: HOME (Self Care) Discharge Disposition comment: Stable Prescriptions/Referrals Prescriptions/Med Rec: New ibuprofen 800 mg tablet 800 mg PO TID PRN (Reason: pain) Qty: 30 0RF ciprofloxacin HCl 500 mg tablet 500 mg PO BID 7 Days Qty: 14 0RF No Action Aptiom 800 mg tablet 800 mg PO HS Patient Comments: TAKE 1 TABLET BY MOUTH EVERY DAY famotidine 20 mg Tablet 20 mg PO QDAY Qty: 30 0RF tamsulosin [Flomax] 0.4 mg capsule 0.4 mg PO QDAY Qty: 30 0RF promethazine-DM 6.25-15 mg/5 mL syrup 5 ml PO [id number] PRN (Reason: Cough) Patient Comments: TAKE 5 MLS BY MOUTH EVERY 6 HOURS NEEDED FOR COUGH hydrocodone-acetaminophen 5-325 mg tablet 2 tab PO Q8H MDD 6 PRN (Reason: pain) Qty: 20 0RF atorvastatin 20 mg tablet 20 mg PO QDAY Patient Comments: TAKE 1 TABLET BY MOUTH EVERY DAY duloxetine 30 mg capsule,delayed release(DR/EC) 60 mg PO QPM Patient Comments: TAKE 1 CAPSULE BY MOUTH EVERY DAY pregabalin 75 mg capsule 75 mg PO BID Patient Comments: TAKE 1 CAPSULE BY MOUTH TWICE A DAY ropinirole 1 mg tablet 1 mg PO QPM Patient Comments: TAKE 1 TABLET BY MOUTH AT BEDTIME midodrine 10 mg tablet 10 mg PO BID Patient Comments: TAKE 1 TABLET (10 MG) BY MOUTH TWICE A DAY HOLD IF BP SYSTOLIC OVER 120 Referrals: Nahum (PCP),MD Dmitry [Primary Care Provider] - In 1 week Problem List Clinical Impression: Acute UTI Patient/Caregiver Discharge Instructions Education Materials: Understanding Urinary Tract ... Additional Instructions: Please follow up with your primary care doctor in the next 24-48hrs for any worsening symptoms return here immediately Print Language: Ethiopian Stand Alone Forms: Janice Award Info., Patient Portal Info Letter PA/TRUCK ASSEMBLER Supervising Physician PA/TRUCK ASSEMBLER Supervising Physician: Dr. olmstead
[2024-10-27] MEDS: cefTRIAXone SOD INJ 1,000 MG VIAL 1000 MG IM (09:49)
[2024-10-27] MEDS: LIDOCAINE HCL 1% 20 ML VIAL 2.1 ML INFL (09:49)
== END 2024-10-27 09:53 | disposition home or self-care (01) ==
PROVIDERS: Nurse Practitioner Primary Care; Emergency Provider Emergency Medicine; PCP Family Medicine
DX: N39.0 Urinary tract infection, site not specified (principal)
CPT/HCPCS: 81001; 87077; 87086; 87186; 96372; 99284; A4314; J0696; J1885; J3490; A9270

== ENCOUNTER → 2024-11-16 | Outpatient (CLI) | payer BC, SELFPAY ==
[2024-11-16 14:56] LABS: Basophils # (Auto) 0.1 Thou/mm3 (0.0-0.2); Basophils % (Auto) 1 % (0-2.5); Eosinophils # (Auto) 0.2 Thou/mm3 (0.0-0.5); Eosinophils % (Auto) 4 % (0-10); Hematocrit 34.3 % (41.0-53.0); Hemoglobin 10.4 g/dL (13.5-16.0); Immature Granulocytes Auto 0.02 Thou/mm3 (0.00-0.00); Lymphocytes # (Auto) 1.9 Thou/mm3 (1.0-4.8); Lymphocytes % (Auto) 35 % (10-50); Mean Corpuscular HGB Conc 30.3 g/dl (31.0-37.0); Mean Corpuscular Hemoglobin 23.7 pg (25.0-35.0); Mean Corpuscular Volume 78 fL (80-100); Monocytes # (Auto) 0.5 Thou/mm3 (0.0-0.8); Monocytes % (Auto) 10 % (0-12); Neutrophils # (Auto) 2.7 Thou/mm3 (1.8-7.7); Neutrophils % (Auto) 50 % (37-80); Nucleated Red Blood Cell # 0.00 Thou/mm3 (0.00-0.00); Nucleated Red Blood Cell % 0 /100 WBC (0); Platelet Count 136 Thou/mm3 (140-440); RDW Standard Deviation 42.7 fL (35.1-43.9); Red Blood Count 4.39 Miln/mm3 (4.50-5.90); White Blood Count 5.4 Thou/mm3 (3.8-10.6)
[2024-11-16 14:59] LABS: Alanine Aminotransferase 27 U/L (10-49); Albumin, Serum 3.9 gm/dL (3.5-5.0); Albumin/Globulin Ratio 2.0 (1.2-2.2); Alkaline Phosphatase 89 U/L (46-116); Anion Gap 8 (7-16); Aspartate Amino Transferase 25 U/L (0-34); BUN/Creatinine Ratio 26 Ratio (12-20); Bilirubin,Total 0.3 mg/dL (0.3-1.2); Blood Urea Nitrogen 21 mg/dL (9-23); Calcium 9.3 mg/dL (8.3-10.6); Calcium (Corrected) 9.4 mg/dL (8.5-10.1); Carbon Dioxide 28.9 mMol/L (20.0-31.0); Chloride 107 mMol/L (98-107); Creatinine (Component) 0.8 mg/dL (0.6-1.3); Globulin 2.0 gm/dL (2.3-3.5); Glucose 79 mg/dL (74-106); Osmolality,Calculated 288 (275-295); Potassium 4.1 mMol/L (3.4-5.1); Sodium 144 mMol/L (136-145); Total Protein 5.9 gm/dL (5.7-8.2); eGFR > 60 See Note
== END | disposition home or self-care (01) ==
LOC: SLDO 13:06
PROVIDERS: PCP Family Medicine; Referring Provider Family Medicine; Visit Provider Family Medicine
DX: N39.0 Urinary tract infection, site not specified (principal)
CPT/HCPCS: 36415; 80053; 85025; 87077; 87086; 87186

== ENCOUNTER 2024-12-06 12:23 | Emergency (ER) | payer BC, SELFPAY ==
[2024-12-06 12:24] VITALS: BMI 35.9
[2024-12-06 12:53] VITALS: BP 138/88; PULSE 76; RESP 18; TEMP 36.8; O2SAT 99
--- NOTE | 2024-12-06 13:03 | EDRME_ITS ---
Rapid Medical Screening Exam E Arrival date/time: 12/06/24 12:23 This is a 54-year-old male that has a history of a stroke that happened about 3 years ago. Patient has right sided hemiparesis. 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 Patient complains of coughing shortness of breath.. Patient currently being treated for pneumonia. Patient finished a steroid treatment for 3 days by primary doctor. Patient currently on day 6 of Levaquin. Patient denies fever or chills. Patient does have a suprapubic catheter and it was changed on the per significant other. I have greeted and performed a focused initial assessment of this patient. I nitial appropriate labs ordered at this time. A comprehensive ED assessment and evaluation of the patient and analysis of all test and completion of medical decision making process will be conducted by additional ED provider. Chief Complaint: Flu Like Symptoms Time Seen by Provider: 12/06/24 12:36 Vital signs: Vital Signs Temperature 98.2 F 12/06/24 12:53 Pulse Rate 76 12/06/24 12:53 Respiratory Rate 18 12/06/24 12:53 Blood Pressure 138/88 H 12/06/24 12:53 Pulse Oximetry (%) 99 12/06/24 12:53 Oxygen Delivery Method Room Air 12/06/24 12:53
--- NOTE | 2024-12-06 13:13 | XR_ITS ---
Examination: AP chest single view Technique one AP portable chest single view Date and time: December 06, 2024, 1329 hrs., Comparison June 24, 2024 Indications: Coughing shortness of breath today. Findings: Right internal jugular Port-A-Cath tip satisfactory position Normal heart size Prominent central pulmonary vasculature No leslye lobar pneumonia Impression: Prominent central pulmonary vasculature No leslye lobar pneumonia
[2024-12-06 13:37] LABS: Basophils # (Auto) 0.1 Thou/mm3 (0.0-0.2); Basophils % (Auto) 1 % (0-2.5); Eosinophils # (Auto) 0.2 Thou/mm3 (0.0-0.5); Eosinophils % (Auto) 2 % (0-10); Hematocrit 38.3 % (41.0-53.0); Hemoglobin 11.7 g/dL (13.5-16.0); Immature Granulocytes Auto 0.08 Thou/mm3 (0.00-0.00); Lymphocytes # (Auto) 2.4 Thou/mm3 (1.0-4.8); Lymphocytes % (Auto) 31 % (10-50); Mean Corpuscular HGB Conc 30.5 g/dl (31.0-37.0); Mean Corpuscular Hemoglobin 23.4 pg (25.0-35.0); Mean Corpuscular Volume 77 fL (80-100); Monocytes # (Auto) 0.7 Thou/mm3 (0.0-0.8); Monocytes % (Auto) 9 % (0-12); Neutrophils # (Auto) 4.2 Thou/mm3 (1.8-7.7); Neutrophils % (Auto) 56 % (37-80); Nucleated Red Blood Cell # 0.00 Thou/mm3 (0.00-0.00); Nucleated Red Blood Cell % 0 /100 WBC (0); Platelet Count 137 Thou/mm3 (140-440); RDW Standard Deviation 41.7 fL (35.1-43.9); Red Blood Count 4.99 Miln/mm3 (4.50-5.90); White Blood Count 7.5 Thou/mm3 (3.8-10.6)
[2024-12-06 13:54] LABS: Alanine Aminotransferase 22 U/L (10-49); Albumin, Serum 4.0 gm/dL (3.5-5.0); Albumin/Globulin Ratio 1.4 (1.2-2.2); Alkaline Phosphatase 107 U/L (46-116); Anion Gap 9 (7-16); Aspartate Amino Transferase 19 U/L (0-34); BUN/Creatinine Ratio 18 Ratio (12-20); Bilirubin,Total 0.3 mg/dL (0.3-1.2); Blood Urea Nitrogen 18 mg/dL (9-23); Calcium 9.6 mg/dL (8.3-10.6); Calcium (Corrected) 9.6 mg/dL (8.5-10.1); Carbon Dioxide 27.5 mMol/L (20.0-31.0); Chloride 107 mMol/L (98-107); Creatinine (Component) 1.0 mg/dL (0.6-1.3); Estimated Creatinine Clearance 107.7 mL/min (>60); Globulin 2.8 gm/dL (2.3-3.5); Glucose 79 mg/dL (74-106); Osmolality,Calculated 285 (275-295); Potassium 4.2 mMol/L (3.4-5.1); Sodium 143 mMol/L (136-145); Total Protein 6.8 gm/dL (5.7-8.2); eGFR > 60 See Note
[2024-12-06 14:14] LABS: Influenza A Ag Negative; Influenza B Ag Negative
--- NOTE | 2024-12-06 15:36 | PD.EDADULT ---
ED General RME/HPI General Chief complaint: Flu Like Symptoms Stated complaint: COUGHING x 1 WEEK, ON Time Seen by Provider: 12/06/24 12:36 Arrival date/time: 12/06/24 12:23 CC: Cough HPI patient presents the ER with , with a persistent cough over the past 3 weeks, was given a gram 1 round of antibiotics by PCP without resolution. Cough is dry persistent day and night no specific pattern. has already tried Tessalon Perles and promethazine. Steroids antibiotics has also not helped the solution. They deny fever occasional shortness of breath but not persistently. 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 is in the majority of the speaking on behalf of the patient. RME / HPI RME / HPI narrative: 12/06/24 12:23 This is a 54-year-old male that has a history of a stroke that happened about 3 years ago. Patient has right sided hemiparesis. 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 Patient complains of coughing shortness of breath.. Patient currently being treated for pneumonia. Patient finished a steroid treatment for 3 days by primary doctor. Patient currently on day 6 of . Patient denies fever or chills. Patient does have a suprapubic catheter and it was changed on the per significant other. I have greeted and performed a focused initial assessment of this patient. Initial appropriate labs ordered at this time. A comprehensive ED assessment and evaluation of the patient and analysis of all test and completion of medical decision making process will be conducted by additional ED provider. Related Data Home Medications ?Medication ?Instructions ?Recorded ?Confirmed atorvastatin 20 mg tablet 20 mg PO QDAY 12/26/21 07/25/24 duloxetine 30 mg capsule,delayed 60 mg PO QPM 12/26/21 07/25/24 release pregabalin 75 mg capsule 75 mg PO BID 12/26/21 07/25/24 eslicarbazepine 800 mg tablet 800 mg PO HS 07/24/23 07/25/24 (Aptiom) midodrine 10 mg tablet 10 mg PO BID 07/31/23 07/25/24 ropinirole 1 mg tablet 1 mg PO QPM 07/31/23 07/25/24 promethazine-DM 6.25 mg-15 mg/5 mL 5 ml PO [id number] PRN Cough 08/26/23 07/25/24 oral syrup Previous Rx's ?Medication ?Instructions ?Recorded famotidine 20 mg tablet 20 mg PO QDAY #30 tabs 09/27/22 tamsulosin 0.4 mg capsule (Flomax) 0.4 mg PO QDAY #30 caps 05/23/23 hydrocodone 5 mg-acetaminophen 325 2 tab PO Q8H PRN pain #20 tabs 05/10/24 mg tablet ibuprofen 800 mg tablet 800 mg PO TID PRN pain #30 tabs 10/27/24 Allergies Allergy/AdvReac Type Severity Reaction Status Date / Time No Known Allergies Allergy Verified 12/06/24 12:25 Review of Systems Review of Systems Narrative Review of Systems: GEN: No fever, no chills, no weight loss EYES: No discharge, no visual changes, no pain HEENT: No ear pain, no congestion, no sore throat PULM: No shortness of breath, + cough, no congestion CV: No chest pain, no dyspnea on exertion, no palpitations GI: No nausea, no vomiting, no diarrhea, no pain, no constipation : No frequency, no urgency, no dysuria MUSC/SKEL: No joint pain, no back pain SKIN: No rash PSYCH: No hallucinations, no depression HEME/LYMPH: No easy bleeding or bruising tendencies NEURO: No weakness, no headache Past Medical History Past Medical History NEUROLOGIC: Positive Cerebrovascular Accident, Seizures and Paralysis; Negative Neurological Disorders, Transient Ischemic Attacks (TIA), Dementia, Alzheimer's Disease, Parkinson's Disease, Brain Tumor, Meningitis, Epilepsy, Multiple Sclerosis, Cerebral Palsy, Amyotrophic Lateral Sclerosis (ALS/Bronwyn Gehrig's), Guillain-Carthage Syndrome, Spina Bifida, Peripheral Neuropathy, Rocha's Palsy, Subdural Hematoma, Migraine, Head Trauma, Spinal Cord Injury or Traumatic Brain Injury CARDIAC: Positive Hypotension; Negative Cardiac Disorders, Cardiac Arrhythmia, Atrial Fibrillation, Angina, Heart Murmur, Coronary Artery Disease, Atherosclerotic Heart Disease, Peripheral Vascular Disease, Hypercholesterolemia, Aneurysm, Congestive Heart Failure, Congenital Heart Disease, Valvular Heart Disease, Rheumatic Fever, Cardiomyopathy, Edema, Pericarditis, Cellulitis, Deep Vein Thrombosis, Hypertension or Varicose Veins RESPIRATORY: Negative Chronic Obstructive Pulmonary Disease (COPD), Asthma, Bronchitis, Emphysema, Pneumonia, Pulmonary Fibrosis, Tuberculosis, Pulmonary Embolism, Pulmonary Edema or Sleep Apnea GASTROINTESTINAL: Positive Gastrointestinal Disorders and Obesity; Negative Hepatitis, Cirrhosis, Pancreatitis, Celiac Disease, Gall Bladder Disease, Gastrointestinal Bleed, Esophageal Varices, Guadalupe's Esophagus, Colitis, Ulcerative Colitis, Diverticulitis, Diverticulosis, Ulcer, Colorectal Cancer, Irritable Bowel, Crohn's Disease, Obstructive Bowel, Hiatal Hernia, Hemorrhoids or Gastroesophageal Reflux Disease GENITOURINARY: Positive Genitourinary Disorders, Renal Disease and Kidney Stones; Negative Inguinal Hernia, Dialysis, Prostate Cancer or Benign Prostatic Hyperplasia REPRODUCTIVE: Negative Breast Cancer, Fibroids, Genital Herpes, Gonorrhea, Syphilis or Testicular Cancer MUSCULOSKELETAL: Positive Osteomyelitis; Negative Muscular Dystrophy, Myasthenia Gravis, Marfan's Syndrome, Bone Cancer, Arthritis, Rheumatoid Arthritis, Osteoporosis, Degenerative Disk Disease, Gout, Scoliosis, Carpal Tunnel Syndrome, Fibromyalgia, Fractures, Degenerative Joint Disease or Poliovirus ENT: Negative Cataracts, Glaucoma, Blind, Retinal Detachment, Macular Degeneration, Ear Infection, Deafness, Head Trauma or Eye Prosthesis ENDOCRINE: Negative Endocrine Disorders, Diabetes Mellitus Type 1, Diabetes Mellitus Type 2, Hypoglycemia, Lagrange's Syndrome, Dayhoit's Disease, Hyperthyroidism, Hypothyroidism, Parathyroid Disease, Pituitary Disease, Systemic Lupus Erythematosus, Syndrome of Inappropriate Antidiuretic Hormone (SIADH), Adrenal Disease or Graves' Disease HEMATOLOGIC: Negative Blood Disorders, Anemia, Leukemia, Hemophilia, Thalassemia, Sickle Cell Disease or Clotting Problems PSYCHO/SOCIAL: Positive Depression and Anxiety; Negative Psychiatric Problems, Schizophrenia, Recreational Drug Use, Bipolar Disorder, Behavior Problems, Self-Mutilation, Attention Deficit Disorder, Attention Deficit Hyperactivity Disorder, Depression, Post Traumatic Stress Disorder or Eating Disorder OTHER HISTORY: Positive Hospitalization, Shingles, MRSA and Chicken Pox; Negative Autoimmune Disease, Down Syndrome, Autism, Developmental Delay, Falls, Blood Transfusions, Blood Transfusion Reaction, Anesthesia Reactions, Organ Transplant, Chemotherapy, Radiation Therapy, Hyperbaric Therapy, VRSA, Vancomycin-Resistant Enterococci, Human Immunodeficiency Virus (HIV), Measles, Mumps, Rubella (Georgian Measles), Pertussis, Clostridium Difficile, Cancer, Breast Cancer, Cervical Cancer, Colorectal Cancer, Lung Cancer, Ovarian Cancer, Prostate Cancer or Testicular Cancer Family History FAMILY HISTORY: Positive Family Surgery; Negative Family Psychiatric Problems, Family Respiratory Disorders, Family Cardiac Disorders, Family Gastrointestinal Problems, Family Cancer or Family Anesthesia Reaction Surgical History SURGICAL: Positive Amputation; Negative Cardiac Surgery, Open Heart Surgery, Coronary Artery Bypass Graft, Valve Replacement, Vascular Surgery, Coronary Stent, Cardiac Catheterization, Pacemaker, Angiogram, Auto Implanted Cardiovert Defib, Carotid Endarterectomy, Endocrine Surgery, Thyroidectomy, Ear Surgery, Tympanostomy Tube, Eye Surgery, Nose Surgery, Oral Surgery, Tonsillectomy, Adenoidectomy, Cochlear Implant, Corneal Transplant, Throat Surgery, Abdominal Surgery, Tracheostomy, Gastric Bypass Surgery, Gastrostomy, Bowel Surgery, Nephrectomy, Transurethral Resection, Joint Replacement, Open Reduction Internal Fixation, Arthroscopy, Neurologic Surgery, Brain Shunt, Mastectomy, Lumpectomy, Hysterectomy, Tubal Ligation, Section, Vasectomy or Organ Transplant Social History SMOKING STATUS: Never smoker SECOND HAND EXPOSURE: No SUBSTANCE USE: does not use ED Exam Narrative Physical exam: Observed in a wheelchair. [General: Obese not in cot no acute distress. clean well-dressed Head normocephalic HEENT: Within acceptable limits Neck is supple nontender Chest equal chest rise nontender to palpation Respiratory: Clear to auscultation no wheezes crackles or rubs CV: Rate rhythm is regular no murmurs rubs or clicks Abdomen is distended secondary to body habitus soft nontender no masses positive bowel sounds all 4 quadrants Back: No CVA tenderness no spinous process tenderness from cervical spine thoracic and lumbar spine Skin: Intact no petechiae rash induration ulceration or crepitus Extremities: Moving all extremity against resistance cap refill less than 2 seconds neurosensory intact Neuro: Awake alert oriented x2, person and place, Glascow coma 15 no focal deficits] Course Course Course Narrative: Patient is afebrile nontoxic-appearing with stable vital signs with no respiratory distress and comfortable discharging this patient home after lengthy conversation with regarding cough medications and recommended Delsym, or dextromethorphan as an alternative. Also did go through all of his medications to see if cough is not a side effect that could be causing this. Patient has a follow-up with his PCP tomorrow At no time during the interview and exam could the patient cough for me his respiratory rate within acceptable limits and his vital signs remained stable. Quality Measures none Orders Category Date Time Status Bedside COVID-19 Antigen Test NOW Care 12/06/24 13:05 Active XR chest 1V Stat Exams 12/06/24 13:13 Completed CBC Stat Lab 12/06/24 13:23 Completed Comprehensive Metabolic Panel Stat Lab 12/06/24 13:23 Completed Influenza A & B Rapid Panel Stat Lab 12/06/24 13:25 Completed Vital Signs Vital signs: Vital Signs Temperature 98.2 F 12/06/24 12:53 Pulse Rate 76 12/06/24 12:53 Respiratory Rate 18 12/06/24 12:53 Blood Pressure 138/88 H 12/06/24 12:53 Pulse Oximetry (%) 99 12/06/24 12:53 Oxygen Delivery Method Room Air 12/06/24 12:53 Discharge Plan Plan Patient Disposition: HOME (Self Care) Patient condition on transfer: Stable Prescriptions/Referrals Prescriptions/Med Rec: No Action Aptiom 800 mg tablet 800 mg PO HS Patient Comments: TAKE 1 TABLET BY MOUTH EVERY DAY famotidine 20 mg Tablet 20 mg PO QDAY Qty: 30 0RF tamsulosin [Flomax] 0.4 mg capsule 0.4 mg PO QDAY Qty: 30 0RF promethazine-DM 6.25-15 mg/5 mL syrup 5 ml PO [id number] PRN (Reason: Cough) Patient Comments: TAKE 5 MLS BY MOUTH EVERY 6 HOURS NEEDED FOR COUGH hydrocodone-acetaminophen 5-325 mg tablet 2 tab PO Q8H MDD 6 PRN (Reason: pain) Qty: 20 0RF ibuprofen 800 mg tablet 800 mg PO TID PRN (Reason: pain) Qty: 30 0RF atorvastatin 20 mg tablet 20 mg PO QDAY Patient Comments: TAKE 1 TABLET BY MOUTH EVERY DAY duloxetine 30 mg capsule,delayed release(DR/EC) 60 mg PO QPM Patient Comments: TAKE 1 CAPSULE BY MOUTH EVERY DAY pregabalin 75 mg capsule 75 mg PO BID Patient Comments: TAKE 1 CAPSULE BY MOUTH TWICE A DAY ropinirole 1 mg tablet 1 mg PO QPM Patient Comments: TAKE 1 TABLET BY MOUTH AT BEDTIME midodrine 10 mg tablet 10 mg PO BID Patient Comments: TAKE 1 TABLET (10 MG) BY MOUTH TWICE A DAY HOLD IF BP SYSTOLIC OVER 120 Referrals: Nahum (PCP)Dmitry MD [Primary Care Provider, Family Practice] - In 1 week Problem List Clinical Impression: Cough Patient/Caregiver Discharge Instructions Other Activity Instructions:: Follow-up with your primary care doctor, check all medications to see if cough is a side effect for these consider dextromethorphan as we have already discussed Tessalon Perles steroids and promethazine as cough alternatives. May want to consider GI for endoscopy. Consider doubling your famotidine from 20 mg once in the evening to 20 mg twice a day. If there is worsening of symptoms in spite of these interventions feel free to return the emergency room for reevaluation. Education Materials: ED Cough Chronic Uncertain Cause Adult Print Language: Kinyarwanda Stand Alone Forms: Janice Award Info., Patient Portal Info Letter DIANNA/KENDRICK Supervising Physician DIANNA/KENDRICK Supervising Physician: Rodolfo Archer ENP [facility] Clinical Information Provided by: patient and spouse Medical Records reviewed [facility] Meds/Rx considered, not ordered None Labs/Rad/Tests considered, not ordered None Chronic Illness/Social Conditions Explain: Right-sided hemiaplasia secondary to CVA multiple amputations secondary to osteomyelitis EKG EKG not done Labs Labs: interpreted by sd Lab(s) Interpretation(s): CBC shows no acute leukocytosis mild but stable anemia hemoglobin 11.7 hematocrit of 38.3. Platelets at 137. CMP shows no significant electrolyte imbalances renal impairment transaminitis or T. bili elevation Influenza A and B are negative Imaging Imaging interpretation: interpreted by me Imaging Interpretation(s): Chest x-ray shows no pneumonic process.
== END 2024-12-06 16:07 | disposition home or self-care (01) ==
PROVIDERS: Nurse Practitioner Family; Emergency Provider Emergency Medicine; PCP Family Medicine
DX: R05.9 Cough, unspecified (principal); I69.351 Hemiplegia and hemiparesis following cerebral infarction affecting right dominant side
CPT/HCPCS: 36415; 71045; 80053; 85025; 87502; 87811; 99283

== ENCOUNTER → 2024-12-24 | Outpatient (CLI) | payer BC, SELFPAY ==
--- NOTE | 2024-12-24 13:00 | XR_ITS ---
Examination: CT abdomen and pelvis without contrast. Coronal 3-D reconstructions. Sagittal 2-D reconstructions. Date and time of exam: December 24, 2024, 1325 hours, comparison July 25, 2024 INDICATIONS: History of kidney stones bilateral flank pain CTDI: vol (mGy): 14.1 DLP: (mGycm): 1010 Technique: Axial images of the abdomen have been obtained, 3 mm slice thickness Intravenous contrast material has not been administered. Low dose protocols were performed. One or more of the following dose reduction techniques were used; automated exposure control, adjustment of the mA and/or KV according to patient size, use of iterative reconstruction technique. Findings: No visualized liver or splenic lesion Gallstones Splenomegaly 15 cm No pancreatic mass Aorta normal size Multiple right renal calculi, the largest in the posterior calyx 9 mm Minimal right hydronephrosis No ureteral calculi Aorta normal size Normal appendix No bowel obstruction Urinary bladder contracted around a suprapubic cystostomy tube, marked wall thickening Severe osteopenia IMPRESSION: Cholelithiasis Splenomegaly Multiple right renal calculi Minimal right hydronephrosis, consider urinary tract infection Cystitis pattern
== END | disposition home or self-care (01) ==
LOC: SCAT 12:29
PROVIDERS: PCP Family Medicine; Referring Provider Urology; Visit Provider Urology
DX: N20.0 Calculus of kidney (principal); R16.1 Splenomegaly, not elsewhere classified; K80.20 Calculus of gallbladder without cholecystitis without obstruction; N13.30 Unspecified hydronephrosis
CPT/HCPCS: 74176

== ENCOUNTER 2025-01-06 13:04 | Emergency (ER) | payer BC, SELFPAY ==
[2025-01-06 13:17] VITALS: BP 110/75; PULSE 92; RESP 16; TEMP 36.6; O2SAT 98
[2025-01-06] MEDS: KETOROLAC INJ 60 MG/2 ML VIAL IM (13:44)
--- NOTE | 2025-01-06 13:47 | EDNOTE_ITS ---
<Statement entered by Yumiko Lee MD - 01/06/25 16:03> As co-signing physician, I was present and available for consult prn. I concur with the plan and care as documented by the midlevel provider. ED Back Injury Pain RME/HPI General Chief Complaint: Back Pain/Injury Stated Complaint: MULTIPLE KIDNEY STONES ON R); SEVERE R) FLANK PAIN Time Seen by Provider: 01/06/25 13:23 Arrival date/time: 01/06/25 13:04 54-year-old male wheelchair-bound with Murcia catheter in place with history of renal calculi currently being followed by [facility] Ki presents with son who is requesting a pain shot to be discharged home Limitations: no limitations Related Data Home Medications ?Medication ?Instructions ?Recorded ?Confirmed atorvastatin 20 mg tablet 20 mg PO QDAY 12/26/2107/25 duloxetine 30 mg capsule,delayed 60 mg PO QPM 12/26/21 07/25/24 release pregabalin 75 mg capsule 75 mg PO BID 12/26/21 eslicarbazepine 800 mg tablet 800 mg PO HS 07/24/23 (Aptiom) midodrine 10 mg tablet 10 mg PO BID 07/31/23 ropinirole 1 mg tablet 1 mg PO QPM 07/31/23 5 promethazine-DM 6.25 mg-15 mg/5 mL 5 ml PO [id number] PRN Cough 08/26/23 07/25/24 oral syrup Previous Rx's ?Medication ?Instructions ?Recorded famotidine 20 mg tablet 20 mg PO QDAY #30 tabs 09/27 tamsulosin 0.4 mg capsule (Flomax) 0.4 mg PO QDAY #30 caps 05/23/23 hydrocodone 5 mg-acetaminophen 325 2 tab PO Q8H PRN pa in #20 tabs 05/10/24 mg tablet ibuprofen 800 mg tablet 800 mg PO TID PRN pain #30 t abs 10/27/24 Allergies Allergy/AdvReac Type Severity Reaction Status Date / Time No Known Allergies Allergy Verified 01/06/25 13:08 Review of Systems Review of Systems Systems Reviewed: All systems reviewed, normal except as documented Constitutional Constitutional: Reports system reviewed and no additional complaints, except as documented, Denies fever(s) and Denies headache(s) Eyes Eyes: Reports system reviewed and no additional complaints, except as documented and Denies blurry vision ENT Ears, Nose, Mouth, and Throat: Reports system reviewed and no additional complaints, except as documented, Denies headache(s), Denies nasal congestion and Denies nasal discharge Cardiovascular Cardiovascular: Reports system reviewed and no additional complaints, except as documented, Denies chest pain and Denies dyspnea Respiratory Respiratory: Reports system reviewed and no additional complaints, except as documented, Denies chest congestion, Denies cough and Denies dyspnea Gastrointestinal Gastrointestinal: Reports system reviewed and no additional complaints, except as documented and Denies abdominal pain Genitourinary Genitourinary: Reports system reviewed and no additional complaints, except as documented, Denies dysuria and Reports other (Flank pain, catheter in place) Integumentary/Breasts Skin/Breast: Reports system reviewed and no additional complaints, except as documented and Denies rash Neurologic Neurologic: Reports system reviewed and no additional complaints, except as documented, Reports as per HPI and Denies headache(s) Past Medical History Past Medical History NEUROLOGIC: Positive Cerebrovascular Accident, Seizures and Paralysis; Negative Neurological Disorders, Transient Ischemic Attacks (TIA), Dementia, Alzheimer's Disease, Parkinson's Disease, Brain Tumor, Meningitis, Epilepsy, Multiple Sclerosis, Cerebral Palsy, Amyotrophic Lateral Sclerosis (ALS/Bronwyn Gehrig's), Guillain-[place] Syndrome, Spina Bifida, Peripheral Neuropathy, Rocha's Palsy, Subdural Hematoma, Migraine, Head Trauma, Spinal Cord Injury or Traumatic Brain Injury CARDIAC: Positive Hypotension; Negative Cardiac Disorders, Cardiac Arrhythmia, Atrial Fibrillation, Angina, Heart Murmur, Coronary Artery Disease, Atherosclerotic Heart Disease, Peripheral Vascular Disease, Hypercholesterolemia, Aneurysm, Congestive Heart Failure, Congenital Heart Disease, Valvular Heart Disease, Rheumatic Fever, Cardiomyopathy, Edema, Pericarditis, Cellulitis, Deep Vein Thrombosis, Hypertension or Varicose Veins RESPIRATORY: Negative Chronic Obstructive Pulmonary Disease (COPD), Asthma, Bronchitis, Emphysema, Pneumonia, Pulmonary Fibrosis, Tuberculosis, Pulmonary Embolism, Pulmonary Edema or Sleep Apnea GASTROINTESTINAL: Positive Gastrointestinal Disorders and Obesity; Negative Hepatitis, Cirrhosis, Pancreatitis, Celiac Disease, Gall Bladder Disease, Gastrointestinal Bleed, Esophageal Varices, Guadalupe's Esophagus, Colitis, Ulcerative Colitis, Diverticulitis, Diverticulosis, Ulcer, Colorectal Cancer, Irritable Bowel, Crohn's Disease, Obstructive Bowel, Hiatal Hernia, Hemorrhoids or Gastroesophageal Reflux Disease GENITOURINARY: Positive Genitourinary Disorders, Renal Disease and Kidney Stones; Negative Inguinal Hernia, Dialysis, Prostate Cancer or Benign Prostatic Hyperplasia REPRODUCTIVE: Negative Breast Cancer, Fibroids, Genital Herpes, Gonorrhea, Syphilis or Testicular Cancer MUSCULOSKELETAL: Positive Osteomyelitis; Negative Muscular Dystrophy, Myasthenia Gravis, Marfan's Syndrome, Bone Cancer, Arthritis, Rheumatoid Arthritis, Osteoporosis, Degenerative Disk Disease, Gout, Scoliosis, Carpal Tunnel Syndrome, Fibromyalgia, Fractures, Degenerative Joint Disease or Poliovirus ENT: Negative Cataracts, Glaucoma, Blind, Retinal Detachment, Macular Degeneration, Ear Infection, Deafness, Head Trauma or Eye Prosthesis ENDOCRINE: Negative Endocrine Disorders, Diabetes Mellitus Type 1, Diabetes Mellitus Type 2, Hypoglycemia, Mcclure's Syndrome, Aldrich's Disease, Hyperthyroidism, Hypothyroidism, Parathyroid Disease, Pituitary Disease, Systemic Lupus Erythematosus, Syndrome of Inappropriate Antidiuretic Hormone (SIADH), Adrenal Disease or Graves' Disease HEMATOLOGIC: Negative Blood Disorders, Anemia, Leukemia, Hemophilia, Thalassemia, Sickle Cell Disease or Clotting Problems PSYCHO/SOCIAL: Positive Depression and Anxiety; Negative Psychiatric Problems, Schizophrenia, Recreational Drug Use, Bipolar Disorder, Behavior Problems, Self-Mutilation, Attention Deficit Disorder, Attention Deficit Hyperactivity Disorder, Depression, Post Traumatic Stress Disorder or Eating Disorder OTHER HISTORY: Positive Hospitalization, Shingles, MRSA and Chicken Pox; Negative Autoimmune Disease, Down Syndrome, Autism, Developmental Delay, Falls, Blood Transfusions, Blood Transfusion Reaction, Anesthesia Reactions, Organ Transplant, Chemotherapy, Radiation Therapy, Hyperbaric Therapy, VRSA, Vancomycin-Resistant Enterococci, Human Immunodeficiency Virus (HIV), Measles, Mumps, Rubella (Scottish Measles), Pertussis, Clostridium Difficile, Cancer, Breast Cancer, Cervical Cancer, Colorectal Cancer, Lung Cancer, Ovarian Cancer, Prostate Cancer or Testicular Cancer Family History FAMILY HISTORY: Positive Family Surgery; Negative Family Psychiatric Problems, Family Respiratory Disorders, Family Cardiac Disorders, Family Gastrointestinal Problems, Family Cancer or Family A nesthesia Reaction Surgical History SURGICAL: Positive Amputation; Negative Cardiac Surgery, Open Heart Surgery, Coronary Artery Bypass Graft, Valve Replacement, Vascular Surgery, Coronary Stent, Cardiac Catheterization, Pacemaker, Angiogram, Auto Implanted Cardiovert Defib, Carotid Endarterectomy, Endocrine Surgery, Thyroidectomy, Ear Surgery, Tympanostomy Tube, Eye Surgery, Nose Surgery, Oral Surgery, Tonsillectomy, Adenoidectomy, Cochlear Implant, Corneal Transplant, Throat Surgery, Abdominal Surgery, Tracheostomy, Gastric Bypass Surgery, Gastrostomy, Bowel Surgery, Nephrectomy, Transurethral Resection, Joint Replacement, Open Reduction Internal Fixation, Arthroscopy, Neurologic Surgery, Brain Shunt, Mastectomy, Lumpectomy, Hysterectomy, Tubal Ligation, Section, Vasectomy or Organ Transplant Social History SMOKING STATUS: Never smoker SECOND HAND EXPOSURE: No SUBSTANCE USE: does not use ED Exam General Limitations: Present no limitations General appearance: Present alert and in no apparent distress Head Head exam: Present atraumatic Eye Eye exam: Present normal appearance, PERRL and EOMI ENT ENT exam: Present normal exam, normal oropharynx and mucous membranes moist Neck Neck exam: Present normal inspection, full ROM and trachea midline Chest Chest inspection: Present normal inspection and symmetric chest wall rise Respiratory Respiratory exam: Present normal lung sounds bilaterally; Absent respiratory distress or wheezes Cardiovascular Cardiovascular exam: Present regular rate, normal rhythm and normal heart sounds Abdominal Exam Abdominal exam: Present soft, normal bowel sounds and other (Right flank pain); Absent distention, tenderness, guarding, rebound or rigidity Extremities Exam Extremities exam: Present normal inspection and full ROM Back Exam Back exam: Present normal inspection and full ROM Neurological Exam Neurological exam: Present alert, oriented X3 and CN II-XII intact Psychiatric Psychiatric exam: Present normal affect and normal mood Skin Skin exam: Present warm, dry, intact and normal color Course Quality Measures none Orders Category Date Time Status Ketorolac Inj [Toradol Inj] Med 01/06/25 13:24 Discontinued 60 mg IM X1 ONE Vital Signs Vital signs: Vital Signs Temperature 97.9 F 01/06/25 13:17 Pulse Rate 92 01/06/25 13:17 Respiratory Rate 16 01/06/25 13:17 Blood Pressure 110/75 01/06/25 13:17 Pulse Oximetry (%) 98 01/06/25 13:17 Oxygen Delivery Method Room Air 01/06/25 13:17 O2 saturation 98% r.a wnl Back Pain / Injury MDM Narrative MDM Narrative:: 54-year-old male wheelchair-bound with Murcia catheter in place with history of renal calculi currently being followed by [facility] Ki presents with son who is requesting a pain shot to be discharged home On exam patient well-appearing patient does not appear look toxic no distress Patient hemodynamically stable does not appear ill or toxic Patient given Toradol for pain Explained to the son as well as patient if symptoms persist or worsen I would like him to return for reevaluation Son is thankful for the care patient is discharged home Patient data External records reviewed:: [facility] previous records Clinical information provided by:: patient Social determinants that could affect healthcare access:: none Patient has the following chronic illnesses:: None How is presenting disease/condition affected by chronic disease/condition?: no chronic disease Evaluation data The following diagnostics were reviewed and interpreted by me:: radiology exam(s) (Reviewed radiology) Lab and/or radiology exams considered but not ordered:: Reviewed Interpretation Summary: Viewed Medications / Prescriptions Medications or Prescriptions considered but not ordered:: Given Medication administrations:: Medication Administration History Discontinued Medications Ketorolac Tromethamine (Ketorolac Inj 60 Mg/2 Ml Vial) 60 mg IM X1 ONE Stop: 01/06/25 13:25 Last Admin: 01/06/25 13:44 Dose: 60 mg Documented By: Given Consultations Consultation(s) initiated? (list below): No Diagnosis Differential diagnosis back pain/injury: lumbar radiculopathy, sciatica and strain of lumbar region Most likely diagnosis given after review of the tests above:: Back pain Admission Indicated Admission indicated?: not indicated Admission Request Was there a request for admission?: No Disposition Plan Disposition Plan: Discharge Discharge Attestation Discharge Attestation: The patient and all family members were given an opportunity to ask questions and understood the discharge instructions. Discharge instructions specifically effects, indications for sooner follow up or return to the emergency department, and the expected course of current diagnosis. Patient condition: Stable Discharge Plan Plan Patient Disposition: HOME (Self Care) Discharge Disposition comment: stable Prescriptions/Referrals Prescriptions/Med Rec: No Action Aptiom 800 mg tablet 800 mg PO HS Patient Comments: TAKE 1 TABLET BY MOUTH EVERY DAY famotidine 20 mg Tablet 20 mg PO QDAY Qty: 30 0RF tamsulosin [Flomax] 0.4 mg capsule 0.4 mg PO QDAY Qty: 30 0RF promethazine-DM 6.25-15 mg/5 mL syrup 5 ml PO [id number] PRN (Reason: Cough) Patient Comments: TAKE 5 MLS BY MOUTH EVERY 6 HOURS NEEDED FOR COUGH hydrocodone-acetaminophen 5-325 mg tablet 2 tab PO Q8H MDD 6 PRN (Reason: pain) Qty: 20 0RF ibuprofen 800 mg tablet 800 mg PO TID PRN (Reason: pain) Qty: 30 0RF atorvastatin 20 mg tablet 20 mg PO QDAY Patient Comments: TAKE 1 TABLET BY MOUTH EVERY DAY duloxetine 30 mg capsule,delayed release(DR/EC) 60 mg PO QPM Patient Comments: TAKE 1 CAPSULE BY MOUTH EVERY DAY pregabalin 75 mg capsule 75 mg PO BID Patient Comments: TAKE 1 CAPSULE BY MOUTH TWICE A DAY ropinirole 1 mg tablet 1 mg PO QPM Patient Comments: TAKE 1 TABLET BY MOUTH AT BEDTIME midodrine 10 mg tablet 10 mg PO BID Patient Comments: TAKE 1 TABLET (10 MG) BY MOUTH TWICE A DAY HOLD IF BP SYSTOLIC OVER 120 Problem List Clinical Impression: Kidney stone Patient/Caregiver Discharge Instructions Education Materials: Healthy Kidneys Additional Instructions: Please follow up with your primary care doctor in the next 24-48hrs for any worsening symptoms return here immediately Print Language: Khmer Stand Alone Forms: Janice Award Info., Patient Portal Info Letter PA/RISK CONTROL CONSULTANT Supervising Physician PA/KENDRICK Supervising Physician: dr lee
== END 2025-01-06 14:34 | disposition home or self-care (01) ==
LOC: SERX 13:57
PROVIDERS: Emergency Provider Nurse Practitioner Primary Care; PCP Family Medicine
DX: N20.0 Calculus of kidney (principal); Z96.0 Presence of urogenital implants
CPT/HCPCS: 96372; 99282; J1885